=== PATIENT | female | born 1970 | race Caucasian/White ===

== ENCOUNTER → 2017-01-29 | Outpatient (CLI) | payer OTHER ==
--- NOTE | 2017-01-31 07:33 | MM ---
Reason for exam: screening (asymptomatic). Last mammogram was performed 2 years and 9 months ago. History: Family history of breast cancer in mother at age 61. Physical Findings: A clinical breast exam by your physician is recommended on an annual basis and results should be correlated with mammographic findings. MG Screening Mammo w CAD Bilateral CC and MLO view(s) were taken. Prior study comparison: April 21, 2014, bilateral MG screening mammo w CAD. August 24, 2009, bilateral digital screening mammogram. The breast tissue is heterogeneously dense. This may lower the sensitivity of mammography. No significant changes when compared with prior studies. ASSESSMENT: Negative, BI-RAD 1 RECOMMENDATION: Routine screening mammogram of both breasts in 1 year.
== END | disposition home or self-care (01) ==
LOC: RADMAMWWP 14:37
PROVIDERS: ATTEND Family Medicine
DX: Z12.31 Encounter for screening mammogram for malignant neoplasm of breast (principal); Z80.3 Family history of malignant neoplasm of breast

== ENCOUNTER → 2017-03-05 | Outpatient (CLI) | payer OTHER ==
[2017-03-05 13:21] VITALS: BP 155/89; PULSE 92; RESP 16; TEMP 98
--- NOTE | 2017-03-05 20:43 | P.CONS ---
History of Present Illness - Reason for Consult Consult date: 03/05/17 - History of Present Illness This is the initial consultation visit for this years old female , patient started complaining of severe low back pain radiation to the hips bilaterally , she deny any numbness and tingling sensation,, patient denies any fever or night sweats with denies any change in the bowel movement or urination, no fever or night sweats, patient tried physical therapy without any benefit, patient reporte that the pain several years ago without any initiating event, pateints currently on pain medication, Ultram 50 mg every 8 hours , pateints continued to have pain, and patient is here to discuss the option of interventional pain management, she tried physical therapy heat and massage and none of these helped to control her pain Past Medical History Past Medical History: GERD/Reflux, Hypertension Additional Past Medical History / Comment(s): carpal tunnel. Needs left knee replacement. overactive bladder History of Any Multi-Drug Resistant Organisms: None Reported Past Surgical History: Orthopedic Surgery, Tubal Ligation Additional Past Surgical History / Comment(s): Left ACL, medial meniscus repair. Right knee - medial meniscus repair. Right wrist fracture - surgical repair Past Psychological History: Anxiety, Depression, Panic Disorder Smoking Status: Current every day smoker Past Alcohol Use History: Occasional Past Drug Use History: None Reported Medications and Allergies Home Medications Medication Instructions Recorded Confirmed Type ALPRAZolam [Xanax] 0.25 mg PO BID 06/10/14 03/05/17 History Oxybutynin Chloride [Ditropan] 5 mg PO HS 05/27/15 03/05/17 History FLUoxetine HCL [PROzac] 20 mg PO DAILY 02/15/16 03/05/17 History amLODIPine [Norvasc] 5 mg PO DAILY 02/15/16 03/05/17 History Omeprazole 20 mg PO DAILY 03/05/17 03/05/17 History traMADol HCL [Ultram] 50 mg PO TID PRN 03/05/17 03/05/17 History Allergies Allergy/AdvReac Type Severity Reaction Status Date / Time No Known Allergies Allergy Verified 03/05/17 13:01 Physical Exam Vitals: Vital Signs Temp Pulse Resp BP 03/05/17 13:05 98.0 F 92 16 155/89 Intake and Output 08/28/17 08/28/17 08/28/17 06:59 14:59 22:59 Other: Weight 107.501 kg Patient Weight 03/06/17 06:59 Weight 107.501 kg Social history : smoker , socially ETOH , NO Illegal drugs use . Review of Systems : 1- Constitutional : no chills , no fever , no night sweats , 2- Ears : no ear discharge , no change in hearing 3-Nose, Mouth ,Throat ; no bleeding gums, no sore throat , no epistaxis , 4-Cardiovascular : Denies chest pain, , no orthopnea , no palpitation 5-Respiratory : Denies cough , no dyspnea , no hemoptysis 6-Gastrointestinal :, no change in bowel habits , no coffee- ground emesis . 7-Genitourinary : No hematuria , no discharge , no incontinence, 8-Musculoskeletal : No gait dysfunction , report low back pain , 9- Neurological : no ataxia , no tremor , no sezure , 10-Psychatric , no suicidal ideation no hallucination 11- Endocrine : no cold intolerence , no polyuria , no polydypsia , 12-Hematologic : no easy bleeding , no easy brusing , 13-Allergic / immunology : no angioedema , no wheezing ,no allergic rhinitis 14-Integumentary : no brttle nails , no change hair / nails , no foot/leg ulcers . Physical Examinations : 1-Constitutional : Cooperative , not in acute distress . 2-HEENT : nech ; supple , no Lymphadenopathy , no Thyromegaly , :eyes , no icterus, no photophobia . ENT : , normal oropharynx , no Thrush 3- Respiratory : Chest clear to auscultations Bilaterally , no wheezing . 4- Cardiovascular : regular rate and rhythem , S1 , S2 , no S3 , no S4. 5- Gastrointestinal: abdomen soft no tenderness , no organomegally . 6- Genitourinary : Defferred . 7-Integumentary : No cellulitis , no ulcers , normal skin turgor , no cyanotic . 8- neurologic : Cranial nerve II to XII intact , no focal neurological deffecit 9-psychatric : alert , oriented X 3 , appropriate affect , intact judgment and insight . 10-Lymphatic : no Lymphadenopathy. 11- musculoskeltal: normal gait Cervical Spine motor stregnth in the deltoid and biceps, normal right side , normal Left side Lumber spine moter stegnth lower extremities ,thigh and legs 5/5 Right side , 5/5 Left side deep tendon reflexes : normal Knee Jerk , normal ankle Jerk negative lumber facet Loading Test Range of motion of the lumbar spine Flexion 60 degrees, extension 30 degrees strait leg raising test negative Fabere test negative Sever tenderness over the Sacroiliac joint on the R and L sides Results Comments: MRI of the lumbar spine= mild degenerative disc disease at L4-L5 and L5-S1 and left paracentral disc protrusion at L4-L5 Assessment and Plan Plan: Assessment and plan= lumbar degenerative disc disease , and lumbar disc protrusions. Bilateral sacroiliitis. The clinical examination support that most of the pain is coming from the sacroiliac joint etiology, for this reason patient could benefit from bilateral sacroiliac joint steroid injections, procedure risks and benefits and alternatives discussed with the patient and she agreed with the preceding, patient should continue using her pain medication Ultram 50 mg every 8 hours, for breakthrough pain Time with Patient: Greater than 30
== END | disposition home or self-care (01) ==
LOC: PNWHC3 12:39
PROVIDERS: ATTEND Specialist
DX: M51.26 Other intervertebral disc displacement, lumbar region (principal); M51.36 Other intervertebral disc degeneration, lumbar region; M46.1 Sacroiliitis, not elsewhere classified; K21.9 Gastro-esophageal reflux disease without esophagitis; F41.9 Anxiety disorder, unspecified; F32.9 Major depressive disorder, single episode, unspecified; F17.200 Nicotine dependence, unspecified, uncomplicated
CPT/HCPCS: 99211

== ENCOUNTER 2017-03-19 09:12 | Day surgery (SDC) | payer OTHER ==
[2017-03-09 16:07] VITALS: BMI 42.0
[2017-03-19] MEDS ORDERED: LACTATED RINGERS 1,000 ML IV SCH (09:47)
[2017-03-19 09:50] VITALS: TEMP 98.4
[2017-03-19] MEDS ORDERED: LIDOCAINE 1% 20 ML VIAL (10MG/ML) FOR IV START INTRADERMA ONE (09:57)
--- NOTE | 2017-03-19 10:25 | P.PCN ---
Date of Procedure: 03/19/17 Preoperative Diagnosis: Postoperative Diagnosis: Procedure(s) Performed: Implants: Surgeon: Piero Sung Pathology: none sent Condition: stable Disposition: PACU Indications for Procedure: Operative Findings: Description of Procedure: PREOPERATIVE DIAGNOSIS: 1-Bilateral sacroiliitis. 2 Lumbar DDD POSTOPERATIVE DIAGNOSIS:. 1-Bilateral sacroiliitis. 2 Lumbar DDD PROCEDURES: Bilateral Sacroiliac joint steroid injection with fluoroscopic guidance ANESTHESIA: Local with 1% lidocaine; conscious sedation EBL: Minimal. PROCEDURE INDICATIONS: This patient with a history of low back pain secondary to sacroiliitis and lumbar DDD unresponsive to conservative management. No use of blood thinners. SIJ injection #1 today. PROCEDURE DESCRIPTION: The patient was seen and identified in the preoperative area. Risks, benefits, complications, and alternatives were discussed with the patient (including but not limited to incomplete pain relief, bleeding, infection, nerve damage, and allergies to medications), the patient agreed to proceed with the procedure and signed the consent after all questions were answered. Patient was taken to the OR and time out was completed to verify proper patient , position, laterality of pain, and allergies. Pt was placed in the prone position and a pillow was placed under the abdomen to reduce lumbar lordosis. The lumbosacral area was prepped and draped in the usual sterile fashion. Critical pause was taken. Vital signs were closely monitored during the procedure. The fluoroscopic camera was placed in contralateral oblique view and right sacroiliiac joint lower pole was identified. After local infiltration with 1% lidocaine 2 ml, Subsequently, a 22-gauge 3.5 inch spinal needle was introduced into the posteroinferior aspect of the right sacroiliac joint under direct fluoroscopic visualization. Subsequently, 3 ml of a solution of a total of 6 ml solution containing total 5 mL of 0.5% preservative-free bupivacaine mixed with 40 mg of Kenalog was injected after negative aspiration for CSF, blood, and air and negative for paresthesia. The entire procedure was repeated on the left side as above. Needle was withdrawn intact. Skin was cleansed, and bandages were applied. COMPLICATIONS: None. COMMENTS: DISPOSITION / PLANS: The patient was placed in a supine position and transferred to the recovery area in a stable condition for observation and was discharged from the recovery room after meeting discharge criteria. Home discharge instructions given to the patient by the staff. The patient was reexamined prior to discharge. The patient will schedule a repeat procedure in 2 -4 weeks.
[2017-03-19] MEDS ORDERED: IV FLUID CONTINUATION 1,000 ML IV ONE (10:31)
[2017-03-19 10:34] VITALS: RESP 18
--- NOTE | 2017-03-19 10:39 | FL ---
EXAMINATION TYPE: FL guided pain mgmt statistic DATE OF EXAM: 03/19/2017 COMPARISON: NONE HISTORY: Sacroiliac joint pain TECHNIQUE: Fluoroscopy. FINDINGS/IMPRESSION: Fluoroscopic guidance was provided during procedure performed by Dr. Pineda velarde l of 5 seconds of fluoroscopic time was utilized during the procedure and 4 spot images was acquired.
[2017-03-19 10:49] VITALS: BP 145/78; PULSE 98
== END 2017-03-19 11:06 | disposition home or self-care (01) ==
LOC: ORPAIN 09:12
PROVIDERS: ATTEND Anesthesiology
DX: M46.1 Sacroiliitis, not elsewhere classified (principal); M51.36 Other intervertebral disc degeneration, lumbar region; K21.9 Gastro-esophageal reflux disease without esophagitis; I10 Essential (primary) hypertension; F32.9 Major depressive disorder, single episode, unspecified; F41.9 Anxiety disorder, unspecified; F17.200 Nicotine dependence, unspecified, uncomplicated; Z79.899 Other long term (current) drug therapy; M51.26 Other intervertebral disc displacement, lumbar region
CPT/HCPCS: 81025; J2250; J3301; Q9965; J3010; G0260; 99152

== ENCOUNTER → 2017-05-28 | Day surgery (SDC) | payer OTHER ==
[2017-05-25 08:21] VITALS: BMI 43.4
[~2017-05-28] MED LIST: IV FLUID CONTINUATION 1,000 ML IV ONE; LACTATED RINGERS 1,000 ML IV ONE; LIDOCAINE 1% 20 ML VIAL (10MG/ML) FOR IV START INTRADERMA ONE
[2017-05-28 08:24] VITALS: RESP 16; TEMP 97.6
--- NOTE | 2017-05-28 08:44 | P.PCN ---
Date of Procedure: 05/28/17 Preoperative Diagnosis: Bilateral sacroiliitis Postoperative Diagnosis: Same as above Procedure(s) Performed: Bilateral sacroiliac joint steroid injection under fluoroscopic guidance Anesthesia: MAC (IV conscious sedation with fentanyl 1%) Surgeon: Lou Live Pathology: none sent Condition: stable Disposition: PACU Description of Procedure: the patient was seen and identified in the preoperative holding area, risks and benefits and alternative of the procedure and possible complications discussed with the patient, patient signed the consent. an IV was started, and vital signs were monitored and were stable throughout the procedure, patient was placed in the prone position or table and the lumbosacral area was prepped and draped with a sterile fashion, vital signs were closely monitored during the procedure.The right sacroiliac joint was identified on the AP view of fluoroscopy then the C-arm was tilted to the left oblique position to superimpose the anterior and posterior joint lines on each other and to have a unified joint line with the target point at the inferior one third of this line. I used 22-gauge 3-1/2 inch Quincke spinal needle for this procedure and after getting into the sacroiliac joint I injected 20 mg of Kenalog +2.5 MLS of Marcaine 0.5%. The same procedure was repeated on the left side by tilting the C-arm to the right oblique position this time. At the target point was also at the inferior one third of this unified joint line. Using a 22-gauge 3-1/2 inch Quincke spinal needle I injected 20 mg of Kenalog plus 2.5 MLS of Marcaine 0.5% . Patient tolerated the procedure well without any complication, The patient returned to supine position after the back was cleaned and a Band- Aid applied, the patient transported to recovery room in stable condition and he was monitored for 30 minutes before he was discharged home and then patient was reexamined before going home and patient was discharged in stable condition and patient will follow up with the pain clinic in a few weeks
[2017-05-28 09:24] VITALS: BP 105/60; PULSE 104
--- NOTE | 2017-05-28 15:17 | FL ---
Fluoroscopy HISTORY: Pain 28 seconds fluoroscopy time supplied to the referring clinician. 0 intraoperative C-arm images docum ent the procedure. See dictated report from anesthesia.
== END | disposition home or self-care (01) ==
LOC: ORPAIN 07:56
PROVIDERS: ATTEND Anesthesiology
DX: M46.1 Sacroiliitis, not elsewhere classified (principal); I10 Essential (primary) hypertension; J44.9 Chronic obstructive pulmonary disease, unspecified; E66.01 Morbid (severe) obesity due to excess calories
CPT/HCPCS: 81025; J2250; J3301; J3010; G0260

== ENCOUNTER 2017-07-30 08:31 | Day surgery (SDC) | payer OTHER ==
[2017-07-26 14:24] VITALS: BMI 43.2
[~2017-07-30 08:31] MED LIST changes: -IV FLUID CONTINUATION 1,000 ML IV ONE; -LIDOCAINE 1% 20 ML VIAL (10MG/ML) FOR IV START INTRADERMA ONE
[2017-07-30] MEDS ORDERED: LACTATED RINGERS 1,000 ML IV ONE (08:58)
[2017-07-30 09:06] VITALS: RESP 18; TEMP 98
[2017-07-30] MEDS ORDERED: LIDOCAINE 1% 20 ML VIAL (10MG/ML) FOR IV START INTRADERMA ONE (09:14)
--- NOTE | 2017-07-30 11:24 | P.PCN ---
Date of Procedure: 07/30/17 Procedure(s) Performed: PREOPERATIVE DIAGNOSIS: 1-Lumbosacral DDD. 2- sacroiliit. post operative Diagnosis: .Same As Pre Op PROCEDURES: 1- Left radiofrequency thermocoagulation/ablation of the L5 dorsal ramus. 2- Left multi-site radiofrequency thermocoagulation/ablation of the S1, S2, lateral branchs. The procedure was performed using fluoroscopic guidance during needle placement to assure proper position and maximize safety . ANESTHESIA: LOCAL ANESTHESIA = moderate sedation with intravenous versed 2 mg and Fentanyle 100 mcg EBL: NONE INDICATION/MEDICAL NECESSITY: History of low back pain secondary to bilateral sacroiliitis, unresponsive to more conservative treatments. The patient reported more than 50% relief of pain symptoms following 2 previous diagnostic blocks with Bupivacaine. PROCEDURE DESCRIPTION: The patient was seen and identified in the preoperative area. Risks, benefits, complications, and alternatives were discussed with the patient. The patient agreed to proceed with the procedure and signed the consent. Vital signs were checked before and after the procedure and they remained stable. Patient ambulated to the procedure room and time out was completed. The patient was placed in the prone position on the procedure table and a pillow was placed under the abdomen to reduce lumbar lordosis. The lumbosacral area was prepped and draped in the usual sterile fashion. Critical pause was taken. L5 Dorsal Ramus RF: Using left oblique fluoroscopy, the junction of the transverse process and the superior articular process of the left S1 vertebra, which correspond to the fluoroscopic image of the "eye of the Enrike dog" was identified. Subsequently, a 10-cm 20 -gauge radiofrequency cannula with a 10-mm active tip was advanced under fluoroscopic guidance until contact was made with periosteum. At this level, the Sensory testing of the L5 dorsal ramus was performed at 50 Hz and 0 to 1 volt with production of concordant pain starting at 0.5 volt. Motor stimulation was done at 2.5 Hz with stimulation of mulitifidus muscle contration . No radicular symptoms or paresthesias were produced during the testing. Subsequently, the L5 dorsal ramus was subjected to a radiofrequency ablation at 80 degree celsius for 90 seconds . after 0.5% Bupivacaine 1 ml injected at each level after negative aspirations . . S1, S2 Lateral Branch RF: The lateral margins of the left S1, S2, foramina were identified using AP fluoroscopy. Under fluoroscopic guidance, three 10-cm 20 -gauge radiofrequency cannula with a 10-mm active tip were inserted at 8-10 mm peripheral to the posterior S1 foramen, at various locations using clock-face coordinates. The center of the clock was registered at the lateral margin of the foramen. The 9: 30, 8:00, and 6:30 oclock positions were used. At this level, the sensory testing of the S1 lateral branch was performed at 50 Hz and 0 to 1 volt at the three levels with production of concordant pain starting at 0.5 volt. Motor stimulation was done at 2.5 Hz. No radicular symptoms or paresthesias were produced during the testing. Subsequently, the S1 lateral branch was subjected to a radiofrequency ablation at a mode of 90 seconds at 80 degrees Celsius at the 3 levels after negative motor and sensory testing and after injecting 0.5 ml of preservative free Bupivacaine 0.5 %. The same procedure was performed at the level of the S2 foramen. The needle was withdrawn intact after each injection. The Plan was to Do The RFA for S3 also ,But I was not able to visualize the S3 foramina , For this reason ,I did not do the lateral branches for S3. COMPLICATIONS: The patient tolerated the procedure well without any acute complications. DISPOSTION/PLAN: The patient ambulated to the recovery area after the procedure in a stable condition for observation. Patient was reexamined prior to discharge. Patient was observed for 30 minutes in the recovery area and was discharged home, accompanied by an adult, after meeting discharged criteria. Discharge instructions were give to the patient by the staff. Patient was specifically instructed not to drive today and to rest for the rest of the day. The patient will schedule a follow up visit in the clinic in weeks or earlier if needed.
[2017-07-30] MEDS ORDERED: IV FLUID CONTINUATION 1,000 ML IV ONE (11:25)
[2017-07-30 11:59] VITALS: BP 130/82; PULSE 92
--- NOTE | 2017-07-30 12:01 | FL ---
Fluoroscopy HISTORY: Pain 23 seconds fluoroscopy time supplied to the referring clinician. 6 intraoperative C-arm images docum ent the procedure. See dictated report from anesthesia.
== END 2017-07-30 12:10 | disposition home or self-care (01) ==
LOC: ORPAIN 08:31
PROVIDERS: ATTEND Specialist
DX: M51.37 Other intervertebral disc degeneration, lumbosacral region (principal); M46.1 Sacroiliitis, not elsewhere classified; I10 Essential (primary) hypertension; J44.9 Chronic obstructive pulmonary disease, unspecified; G47.33 Obstructive sleep apnea (adult) (pediatric); K21.9 Gastro-esophageal reflux disease without esophagitis
CPT/HCPCS: 81025; 64640; 64635; J2250; J3301; J3010; 99152; 99153

== ENCOUNTER 2017-08-29 08:24 | Day surgery (SDC) | payer OTHER ==
[2017-08-28 09:08] VITALS: BMI 43.9
[2017-08-29] MEDS ORDERED: LACTATED RINGERS 1,000 ML IV SCH (08:45)
[2017-08-29 09:27] VITALS: RESP 18; TEMP 98.3
[2017-08-29] MEDS ORDERED: LIDOCAINE 1% 20 ML VIAL (10MG/ML) FOR IV START INTRADERMA ONE (09:35)
--- NOTE | 2017-08-29 10:03 | P.PCN ---
Date of Procedure: 08/29/17 Surgeon: Piero Sung Pathology: none sent Condition: stable Disposition: PACU Description of Procedure: PREOPERATIVE DIAGNOSIS: Sacroiliitis; lumbar spondylosis without myelopathy POSTOPERATIVE DIAGNOSIS: Sacroiliitis; lumbar spondylosis without myelopathy PROCEDURE: Radiofrequency thermocoagulation/ablation of the Medial branch of L5 and S1, S2, S3 lateral branch levels under fluoroscopic guidance, right ANESTHESIA: Local with 1% lidocaine; IV sedation with Versed/fentanyl EBL: Minimal PROCEDURE INDICATION: The patient with low back pain secondary to sacroilitis with marked decrease in pain with prior sacroiliac joint injections. No use of blood thinners. PROCEDURE DESCRIPTION: The patient was seen and identified in the preoperative area. Risks, benefits, complications, and alternatives were discussed with the patient, with risks including but not limited to bleeding, infection, nerve damage, incomplete pain relief, and allergic reactions to medications. The patient agreed to proceed with the procedure and signed the informed consent after all questions were answered. IV was started. Vital signs were stable throughout the procedure. Patient was taken to the OR and time out was completed.The patient was placed in the prone position on procedure table and a pillow was placed under the abdomen to reduce lumbar lordosis. The lumbosacral area was prepped and draped in the usual sterile fashion. Critical pause was taken. Vital signs were closely monitored during the procedure. L5 Medial Branch: Using right oblique fluoroscopy, the junction of the transverse process and the superior articular process of the top of the sacrum on the right side, which correspond to the fluoroscopic image of the "eye of the Enrike dog" was identified. Skin and deeper tissues were localized with 1% lidocaine at the identified level. Then using fluoroscopy, a 10-cm 20-gauge radiofrequency cannula with a 10-mm active tip was was advanced under fluoroscopic guidance until contact was made with periosteum. At this level, the Sensory testing of L5 Medial branch was performed at 50 Hz and 0 to 1 volt with production of concordant pain. Motor stimulation was done at 2 Hz with stimulation of multifidus muscle contraction at (0.1-2.5) volts. No radicular symptoms or paresthesias were produced during the testing. Subsequently, the L5 medial branch was subjected to a radiofrequency ablation at a mode of 90 seconds at 80 degrees Celsius after negative motor and sensory testing as indicated and after injecting 0.5 ml of preservative free Lidocaine 1%. Then after the radiofrequency procedure was done, 1 mL of a solution containing 4 mL of 0.5% preservative-free lidocaine mixed with 40 mg of Kenalog. S1, S2, and S3 Medial branches: Using the oblique position, the right sacroiliac joint was identified. Skin and deeper tissues corresponding to the site were anesthetized with 1% lidocaine. Under fluoroscopic guidance, a total of three 10-cm 18-gauge radiofrequency cannula with 10-mm active tips were advanced to the lateral aspects of the S1, S2, and S3 vertebral foramina. Subsequently, sensory and motor testings were performed at a total of 3 segments at 50 Hz and 2 Hz respectively which produced concordant pain without radiculopathy or paresthesia. Then each segment was subjected to radiofrequency ablation at a mode of 90 seconds at 80 degrees Celsius for a total of 3 lesions with the bipolar technique. Then after the radiofrequency procedure was done, each site was injected with 1 mL of the aforementioned solution containing 4 mL of 1% preservative-free lidocaine mixed with 40 mg of Kenalog. The needles were withdrawn. Area was cleaned. Band-Aid was applied. COMPLICATIONS: None. COMMENTS: DISPOSITION / PLANS: The patient was placed in a supine position and transferred to the recovery area in a stable condition for observation and was discharged from the recovery room after meeting discharge criteria. Home discharge instructions given to the patient by the staff. The patient was reexamined prior to discharge. The patient will schedule a follow up in clinic in 4-6 weeks to discuss efficacy.
[2017-08-29] MEDS ORDERED: IV FLUID CONTINUATION 650 ML IV ONE (10:07)
[2017-08-29 10:25] VITALS: BP 143/91; PULSE 104
--- NOTE | 2017-08-29 10:48 | FL ---
Fluoroscopy HISTORY: Pain 7 seconds fluoroscopy time supplied to the referring clinician. 2 intraoperative C-arm images docume nt the procedure. See dictated report from anesthesia.
== END 2017-08-29 10:50 | disposition home or self-care (01) ==
LOC: ORPAIN 08:24
PROVIDERS: ATTEND Anesthesiology
DX: M46.1 Sacroiliitis, not elsewhere classified (principal); M47.816 Spondylosis without myelopathy or radiculopathy, lumbar region
CPT/HCPCS: 81025; 64640 ×2; 64635; J2250; J3301; J3010; 99152

== ENCOUNTER → 2017-09-27 | Outpatient (CLI) | payer OTHER ==
[2017-09-27 13:52] VITALS: BP 110/73; PULSE 107; RESP 16
--- NOTE | 2017-09-27 14:39 | P.PN ---
Subjective Progress Note Date: 09/27/17 This is 47 years old female with a chronic history of severe low back pain, patient diagnosed with sacroiliitis and lumbar degenerative disc disease, with done radiofrequency ablation of the sacroiliac joints bilaterally, and she reported that she gets more than 50% improvement of her buttock pain, and she is currently able to do more activity of daily livings, but she hurt herself recently and she fell on her knee and she is having difficulty ambulating because of the knee pain, she was evaluated by orthopedic surgeon Dr. Galvan, and currently she is complaining of numbness and tingling sensation radiated to the left lower extremity and left lower buttock area , she is currently on Ultram 50 mg 3 times a day and naproxen 500 mg twice a day, she denies any side effect of the medication she denies any excessive drowsiness or sleepiness and she reported the current medication and getting comfortable toward her pain, she denies any fever or night sweats she denies any change in the bowel movements or urination Objective - Vital Signs Vital signs: Vital Signs Temp Pulse 107 H 09/27/17 13:41 Resp 16 09/27/17 13:41 BP 110/73 09/27/17 13:41 Pulse Ox 97 09/27/17 13:41 Intake & Output 09/26/17 09/27/17 09/27/17 18:59 06:59 18:59 Weight 109.316 kg - Exam Physical Examinations : 1-Constitutiona : Cooperative , not in acute distress . 2-HEENT : nech ; supple , no Lymphadenopathy , normal thyroid size . eyes : no ptosis , no icterus, no photophobia . ENT : normal of hearing , normal oropharynx , no Thrush . 3- Respiratory : Chest clear to auscultations Bilaterally , no wheezing , no Rhonchi . 4- Cardiovascular : regular rate and rhythem , S1 , S2 , no S3 , no S4. 5- Gastrointestinal : abdomen soft no tenderness , bowel sounds positive all four quadrents , no organomegally . 6- Genitourinary : Defferred . 7- neurologic : Cranial nerve II to XII intact , no focal neurological deffecit . 8-psychatric : alert , oriented X 3 , appropriate affect , intact judgment and insight . 9-Lymphatic : no Lymphadenopathy . 10- musculoskeltal : , Lumber spine = normal moter stegnth lower extremities ,thigh and legs .5/5 deep tendon reflexes : normal Knee Jerk , normal ankle Jerk . lumber facet Loading Test positive strait leg raising test negative on Right , positve at 30 degree Left Fabere test negative on the right and positive Left tenderness over the Sacroiliac joint on the Right , and Left side Assessment and Plan Plan: Assessment and plan= 1-sacroiliitis status post radiofrequency ablation of the sacroiliac joint. 2-lumbar degenerative disc disease, lumbar radiculopathy. Patient could benefit from lumbar epidural steroid injections under fluoroscopy guidance, procedure risk and benefits and alternatives discussed with the patient and she agreed with proceeding, patient should continue to take her pain medication Ultram 50 mg 3 times a day from her primary care and naproxen 500 mg twice a day Time with Patient: Less than 30
== END | disposition home or self-care (01) ==
LOC: PNWHC3 13:27
PROVIDERS: ATTEND Specialist
DX: M46.1 Sacroiliitis, not elsewhere classified (principal); M51.16 Intervertebral disc disorders with radiculopathy, lumbar region; Z79.899 Other long term (current) drug therapy; Z79.891 Long term (current) use of opiate analgesic; Z79.1 Long term (current) use of non-steroidal anti-inflammatories (NSAID); Z98.890 Other specified postprocedural states
CPT/HCPCS: 99211

== ENCOUNTER → 2017-10-03 | Outpatient (CLI) | payer OTHER ==
--- NOTE | 2017-10-03 14:12 | XR ---
Left ankle and left foot HISTORY: Trauma and pain 3 views of the left ankle and 3 views of the left lung submitted. No comparisons There is spurring at the tibiotalar joint. Calcaneal spur is present. Alignment, bone mineralization are maintained. Joint space loss suspected at the tibiotalar joint. There is soft tissue swelling present. Soft tissue calcifications present in the distal leg. IMPRESSION: No acute fracture or location of the left ankle or foot. Follow-up as indicated. Osteoart hritic change. Plantar calcaneal spur.
== END | disposition home or self-care (01) ==
LOC: RADXRMAIN 11:04
PROVIDERS: ATTEND Family Medicine
DX: M77.32 Calcaneal spur, left foot (principal); M19.072 Primary osteoarthritis, left ankle and foot

== ENCOUNTER 2017-10-10 10:13 | Emergency (ER) | payer OTHER ==
[2017-10-10 10:24] VITALS: BP 159/87; PULSE 100; RESP 18; TEMP 97.7
[2017-10-10] MEDS ORDERED: KETOROLAC 60 MG/2 ML VIAL IM STA (10:30)
[2017-10-10] MEDS ORDERED: ORPHENADRINE 30 MG/ML 2 ML VIAL IM STA (10:30)
--- NOTE | 2017-10-10 10:32 | ED ---
Neck Injury/Pain HPI - General Chief Complaint: Neck Pain/Injury Stated Complaint: Neck pain Time Seen by Provider: 10/10/17 10:25 Source: patient, RN notes reviewed Mode of arrival: ambulatory Limitations: no limitations - History of Present Illness Initial Comments: This a 47-year-old female presents emergency Department chief complaint of right -sided neck pain. Patient states started on Sunday after she woke up from a nap. She states her pain that radiates down her right arm to her right bicep region. Denies any associated weakness is pain with range of motion. Patient denies any paresthesias. Denies any trauma. Patient has no current headache no dizziness no chest pain or shortness of breath. Patient states that she try taken naproxen, tramadol no relief. She did try some warm compresses. Patient had no prior neck issues. She does have history of back problems. - Related Data Home Medications Medication Instructions Recorded Confirmed Oxybutynin Chloride [Ditropan] 5 mg PO HS 05/27/15 10/10/17 FLUoxetine HCL [PROzac] 20 mg PO DAILY 02/15/16 10/10/17 Omeprazole 20 mg PO DAILY 03/05/17 10/10/17 Lisinopril-Hctz 20-25 mg 1 tab PO DAILY 09/27/17 10/10/17 [Zestoretic 20-25] Naproxen 500 mg PO BID 09/27/17 10/10/17 ALPRAZolam [Xanax] 0.5 mg PO BID 10/10/17 10/10/17 Albuterol Inhaler [Ventolin Hfa 1 - 2 puff INHALATION RT-Q6H PRN 10/10/17 Inhaler] Previous Rx's Medication Instructions Recorded Acetaminophen-Codeine 300-30mg 1 tab PO Q4H PRN #20 tablet 10/10/17 [Tylenol #3] Cyclobenzaprine [Flexeril] 10 mg PO TID PRN #15 tab 10/10/17 predniSONE 50 mg PO DAILY #5 tab 10/10/17 Allergies Allergy/AdvReac Type Severity Reaction Status Date / Time No Known Allergies Allergy Verified 10/10/17 10:51 Review of Systems ROS Statement: Those systems with pertinent positive or pertinent negative responses have been documented in the HPI. ROS Other: All systems not noted in ROS Statement are negative. Past Medical History Past Medical History: COPD, GERD/Reflux, Hypertension, Sleep Apnea/CPAP/BIPAP Additional Past Medical History / Comment(s): overactive bladder. Fell on and re-injured left knee; presently on crutches; saw Dr. Galvan History of Any Multi-Drug Resistant Organisms: None Reported Past Surgical History: Orthopedic Surgery, Tubal Ligation Additional Past Surgical History / Comment(s): Left ACL, medial meniscus repair. Right knee - medial meniscus repair. Right wrist fracture - surgical repair.RIGHT RING FINGER. PAIN CLINIC PROCEDURES Past Anesthesia/Blood Transfusion Reactions: No Reported Reaction Past Psychological History: Anxiety, Depression, Panic Disorder Smoking Status: Current every day smoker Past Alcohol Use History: Occasional Past Drug Use History: None Reported - Past Family History Mother Family Medical History: Cancer Additional Family Medical History / Comment(s): UTERINE AND BREAST CANCER, General Exam Limitations: no limitations General appearance: alert, in no apparent distress Head exam: Present: atraumatic, normocephalic, normal inspection ENT exam: Present: normal exam, normal oropharynx, mucous membranes moist Neck exam: Present: normal inspection, tenderness (Tenderness the right paraspinal or trapezius region), full ROM (Patient does have full range of motion mild pain with range of motion). Absent: meningismus, lymphadenopathy Respiratory exam: Present: normal lung sounds bilaterally. Absent: respiratory distress, wheezes, rales, rhonchi, stridor Cardiovascular Exam: Present: regular rate, normal rhythm, normal heart sounds. Absent: systolic murmur, diastolic murmur, rubs, gallop, clicks Extremities exam: Present: other (Upper extremity strength equal bilaterally, neurovascular intact) Neurological exam: Present: alert, oriented X3, CN II-XII intact, reflexes normal. Absent: motor sensory deficit Skin exam: Present: warm, dry, intact, normal color. Absent: rash Course Vital Signs 10/10/17 10:20 Temperature 97.7 F Pulse Rate 100 Respiratory 18 Rate Blood Pressure 159/87 O2 Sat by Pulse 99 Oximetry Medical Decision Making - Medical Decision Making 47-year-old female presented emergency department for right-sided neck pain. Patient has cervical radiculopathy. Patient does have normal muscle spasms the right side of the neck. Patient given steroids, muscle relaxer and she'll continue her pain medication. Return parameters were discussed. Patient has no focal weakness. Disposition Clinical Impression: Cervical radiculopathy, Trapezius muscle spasm Disposition: HOME SELF-CARE Condition: Stable Instructions: Cervical Radiculopathy (ED) Additional Instructions: Please return to the Emergency Department if symptoms worsen or any other concerns. Prescriptions: Acetaminophen-Codeine 300-30mg [Tylenol #3] 1 tab PO Q4H PRN #20 tablet PRN Reason: pain Cyclobenzaprine [Flexeril] 10 mg PO TID PRN #15 tab PRN Reason: Muscle Spasm predniSONE 50 mg PO DAILY #5 tab Referrals: Sundeep Sinclair MD [Primary Care Provider] - 1-2 days Time of Disposition: 11:01
--- NOTE | 2017-10-10 10:48 | XR ---
EXAMINATION TYPE: XR cervical spine comp DATE OF EXAM: 10/10/2017 COMPARISON: NONE HISTORY: Pain TECHNIQUE: 5 view cervical spine FINDINGS: There is a cervical kyphosis greatest at approximately C3 5. Prevertebral space is normal. C7-T1 interspace is poorly visualized in lateral projection, exam is supplemented with a transthoraci c swimmer's view. Posterior spinal lamellar line appears intact. Foramen are patent. Odontoid is limi tation with overlying maxilla. Transthoracic swimmer's view was obtained appears normal. IMPRESSION: 1. Cervical kyphosis
== END 2017-10-10 11:11 | disposition home or self-care (01) ==
LOC: EC 10:13
DX: M54.12 Radiculopathy, cervical region (principal); M62.838 Other muscle spasm; K21.9 Gastro-esophageal reflux disease without esophagitis; I10 Essential (primary) hypertension; G47.30 Sleep apnea, unspecified; Z99.89 Dependence on other enabling machines and devices; F32.9 Major depressive disorder, single episode, unspecified; F41.0 Panic disorder [episodic paroxysmal anxiety]; F17.200 Nicotine dependence, unspecified, uncomplicated; Z79.1 Long term (current) use of non-steroidal anti-inflammatories (NSAID); Z79.899 Other long term (current) drug therapy
CPT/HCPCS: 72050; 99283; 96372 ×2; J2360; J1885

== ENCOUNTER 2017-10-31 06:49 | Day surgery (SDC) | payer OTHER ==
[2017-10-26 12:21] VITALS: BMI 44.1
[2017-10-31] MEDS ORDERED: LACTATED RINGERS 1,000 ML IV SCH (07:00)
[2017-10-31 07:35] VITALS: RESP 16; TEMP 98
[2017-10-31] MEDS ORDERED: LIDOCAINE 1% 20 ML VIAL (10MG/ML) FOR IV START INTRADERMA ONE (07:35)
--- NOTE | 2017-10-31 08:10 | P.PCN ---
Date of Procedure: 10/31/17 Surgeon: Piero Sung Pathology: none sent Condition: stable Disposition: PACU Description of Procedure: PREOPERATIVE DIAGNOSIS: 1-Lumbar radiculitis. POSTOPERATIVE DIAGNOSIS: 1-Lumbar radiculitis. PROCEDURE 1. Lumbar epidural steroid injection under fluoroscopic guidance at the L4-L5 level. 2. Lumbar epidurogram. ANESTHESIA: Local with 1% lidocaine; IV sedation with Versed/fentanyl. EBL: Minimal PROCEDURE INDICATION: The patient with low back pain and radiculitis symptoms unresponsive to conservative treatment, LLE > RLE. No use of blood thinners. Fluoroscopy was used to optimize visualization of the needle placement and to maximize safety. PROCEDURE DESCRIPTION / TECHNIQUE: The patient was seen and identified in the preoperative area. Risks, benefits, complications, and alternatives were discussed with the patient, including but not limited to bleeding, infection, nerve damage, allergic reactions to medications, and incomplete pain relief. The patient agreed to proceed with the procedure and signed the consent after all questions were answered. IV was started, and vital signs were stable. Patient was taken to the OR and time out was completed to confirm patient position, procedure, laterality of pain, and allergies. The patient was placed in the prone position on procedure table and a pillow was placed under the abdomen to reduce lumbar lordosis. The lumbosacral area was prepped and draped in the usual sterile fashion. Critical pause was taken. Vital signs were closely monitored during the procedure. Conscious sedation was used during the procedure to decrease patients anxiety. Using anterior-posterior fluoroscopy, the L4-L5 interlaminar space was identified and the skin over this site was marked and then infiltrated with 1% lidocaine subcutaneously. Subsequently, a 20-gauge 3.5-inch Tuohy epidural needle was inserted and advanced toward the epidural space using the Loss of resistance technique and guided by AP and lateral fluoroscopy. The correct needle position in the epidural space was verified with the injection of 2 mL of the water soluble contrast dye Isovue 200 contrast and observing an excellent epidurogram with the epidural spread of the dye, after negative aspiration for blood and CSF and in the absence of paresthesias. Again after negative aspiration, a 6 ml mixture containing 40 mg of PF Decadron and 3 ml of preservative free Normal Saline, and 2 ml of preservative free lidocaine 1% solution was injected and a washout of epidurogram was seen. Needle was withdrawn intact, skin was cleansed, and bandages were applied. COMPLICATIONS: None COMMENTS: DISPOSITION / PLANS: The patient was placed in a supine position and transferred to the recovery area in a stable condition for observation. There was no evidence of lower extremity motor or sensory deficit after the procedure. Patient was discharged from the recovery room after meeting discharge criteria. Home discharge instructions were given to the patient by the staff. The patient was reexamined prior to discharge and there were no issues. The patient will schedule a repeat procedure in 2-4 weeks. Recommend using longer Tuohy needle for next procedure,.
[2017-10-31 08:14] VITALS: BP 143/89; PULSE 100
[2017-10-31] MEDS ORDERED: IV FLUID CONTINUATION 1,000 ML IV ONE (08:17)
--- NOTE | 2017-10-31 08:32 | FL ---
Fluoroscopy HISTORY: Pain 7 seconds fluoroscopy time supplied to the referring clinician. 3 intraoperative C-arm images docume nt the procedure. See dictated report from anesthesia.
== END 2017-10-31 08:21 | disposition home or self-care (01) ==
LOC: ORPAIN 06:49
PROVIDERS: ATTEND Anesthesiology
DX: G89.29 Other chronic pain (principal); M54.16 Radiculopathy, lumbar region; I10 Essential (primary) hypertension; K21.9 Gastro-esophageal reflux disease without esophagitis; Z79.899 Other long term (current) drug therapy
CPT/HCPCS: 62323; J2250; J1030; J3010; Q9966

== ENCOUNTER 2017-11-22 07:05 | Day surgery (SDC) | payer OTHER ==
[2017-11-19 12:51] VITALS: BMI 42.7
[2017-11-22 08:41] VITALS: RESP 18; TEMP 97.2
[2017-11-22] MEDS ORDERED: LACTATED RINGERS 1,000 ML IV ONE (08:55)
[2017-11-22] MEDS ORDERED: LIDOCAINE 1% 20 ML VIAL (10MG/ML) FOR IV START INTRADERMA ONE (08:56)
--- NOTE | 2017-11-22 09:18 | P.PCN ---
Date of Procedure: 11/22/17 Anesthesia: local Surgeon: Jeff Mcgill Description of Procedure: PREOPERATIVE DIAGNOSIS: 1- Lumbar Degenerative Disc Diseases 2-Lumbar spondylosis with Facet arthropathy without myelopathy POSTOPERATIVE DIAGNOSIS: 1-Lumber Degenerative Disc Diseases 2-Lumbar spondylosis with Facet arthropathy without myelopathy PROCEDURE Lumbar epidural steroid injection under fluoroscopic guidance at the L4 5 level. ANESTHESIA: Local with 1% lidocaine 3 ml and IV sedation with Versed 2 mg EBL: Minimal PROCEDURE INDICATION: The patient with low back pain and radiculitis symptoms unresponsive to conservative treatment. Fluoroscopy was used to optimize visualization of the needle placement and to maximize safety. She has a herniated disc at L4-5. She is undergone one previous epidural steroid injection with reduction of her symptoms. PROCEDURE DESCRIPTION / TECHNIQUE: The patient was seen and identified in the preoperative area. Risks, benefits , complications including but not limited to infections ,bleeding ,allergic reaction to the medications ,nerve damage and not complete pain relief , and alternatives were discussed with the patient. The patient agreed to proceed with the procedure and signed the consent. IV was started, and vital signs were stable. Patient was taken to the OR and time out was completed. The patient was placed in the prone position on procedure table and a pillow was placed under the abdomen to reduce lumbar lordosis. The lumbosacral area was prepped and draped in the usual sterile fashion.ere closely monitored during the procedure. Conscious sedation was used during the procedure to decrease patients anxiety. Vital signs was monitered during the entire procedure. Using anterior-posterior fluoroscopy, the L5-S1 interlaminar space was identified and the skin over this site was marked and then infiltrated with 1% lidocaine subcutaneously. Subsequently, a 20-gauge Tuohy epidural needle was inserted and advanced toward the epidural space using the Loss of resistance technique and guided by AP and lateral fluoroscopy. The correct needle position in the epidural space was verified with the injection of contrast and observing an excellent epidurogram with the epidural spread of the dye, after negative aspiration for blood and CSF and in the absence of paresthesias. Again after negative aspiration, a 6 ml mixture containing 20 mg of Dexamethasone was injected and a washout of epidurogram was seen. Needle was withdrawn intact , skin was cleansed, and bandages were applied. COMPLICATIONS: None DISPOSITION / PLANS: The patient was placed in a supine position and transferred to the recovery area in a stable condition for observation. There was no evidence of lower extremity motor or sensory deficit after the procedure. Patient was discharged from the recovery room after meeting discharge criteria. Home discharge instructions were given to the patient by the staff. The patient was reexamined prior to discharge. The patient will schedule a follow up for repeat of lumbar epidural steroid injection in 2-4 weeks.
[2017-11-22] MEDS ORDERED: IV FLUID CONTINUATION 1,000 ML IV ONE (09:24)
--- NOTE | 2017-11-22 09:37 | FL ---
EXAMINATION TYPE: FL guided pain mgmt statistic DATE OF EXAM: 11/22/2017 HISTORY: Flouroscopy time 1 seconds of fluoroscopy provided. IMPRESSION: 1. Fluoroscopy time.
[2017-11-22 09:47] VITALS: BP 126/73; PULSE 92
== END 2017-11-22 10:02 | disposition home or self-care (01) ==
LOC: ORPAIN 07:05
PROVIDERS: ATTEND Anesthesiology
DX: M51.16 Intervertebral disc disorders with radiculopathy, lumbar region (principal); M47.816 Spondylosis without myelopathy or radiculopathy, lumbar region
CPT/HCPCS: 81025; 62323; J2250; J1030; J3010

== ENCOUNTER 2018-01-24 08:01 | Day surgery (SDC) | payer OTHER ==
[2018-01-21 10:25] VITALS: BMI 43.9
[~2018-01-24 08:01] MED LIST changes: -LACTATED RINGERS 1,000 ML IV ONE; +LACTATED RINGERS 1,000 ML IV SCH
[2018-01-24 09:25] VITALS: RESP 16; TEMP 98
[2018-01-24] MEDS ORDERED: LIDOCAINE 1% 20 ML VIAL (10MG/ML) FOR IV START INTRADERMA ONE (09:28)
--- NOTE | 2018-01-24 10:25 | P.PCN ---
Date of Procedure: 01/24/18 Procedure(s) Performed: PREOPERATIVE DIAGNOSIS: 1- Lumbar Degenerative Disc Diseases 2-Lumbar radiculopathy. POSTOPERATIVE DIAGNOSIS: same as preoperative diagnosis PROCEDURE 1. Lumbar epidural steroid injection under fluoroscopic guidance at the L4-5 level. 2. Lumbar epidurogram. ANESTHESIA: Local with 1% lidocaine 3 ml and , moderate sedation with intravenous Versed 2 mg ,and fentanyle 50 Mcg EBL: Minimal PROCEDURE INDICATION: The patient with low back pain and radiculitis symptoms unresponsive to conservative treatment. Fluoroscopy was used to optimize visualization of the needle placement and to maximize safety. PROCEDURE DESCRIPTION / TECHNIQUE: The patient was seen and identified in the preoperative area. Risks, benefits , complications including but not limited to infections ,bleeding ,allergic reaction to the medications ,nerve damage and not complete pain releife , and alternatives were discussed with the patient. The patient agreed to proceed with the procedure and signed the consent. IV was started, and vital signs were stable. Patient was taken to the OR and time out was completed. The patient was placed in the prone position on procedure table and a pillow was placed under the abdomen to reduce lumbar lordosis. The lumbosacral area was prepped and draped in the usual sterile fashion.ere closely monitored during the procedure. Conscious sedation was used during the procedure to decrease patients anxiety. Vital signs was monitered during the entire procedure. Using anterior-posterior fluoroscopy, the L4-5 interlaminar space was identified and the skin over this site was marked and then infiltrated with 1% lidocaine subcutaneously. Subsequently, a 18-gauge 6 inches ,Tuohy epidural needle was inserted and advanced toward the epidural space using the ``Loss of resistance technique and guided by AP and lateral fluoroscopy. The correct needle position in the epidural space was verified with the injection of 2 mL of the water soluble contrast dye Isovue 200 contrast and observing an excellent epidurogram with the epidural spread of the dye, after negative aspiration for blood and CSF and in the absence of paresthesias. Again after negative aspiration, a 6 ml mixture containing 80 mg Depo-Medrol, and 2 ml of preservative free Normal Saline, and 2 ml of preservative free lidocaine 1% solution was injected and a washout of epidurogram was seen. Needle was withdrawn intact, skin was cleansed, and bandages were applied. COMPLICATIONS: None DISPOSITION / PLANS: The patient was placed in a supine position and transferred to the recovery area in a stable condition for observation. There was no evidence of lower extremity motor or sensory deficit after the procedure. Patient was discharged from the recovery room after meeting discharge criteria. Home discharge instructions were given to the patient by the staff. The patient was reexamined prior to discharge. The patient will schedule a follow up in the clinic in 2-4 weeks.
[2018-01-24] MEDS ORDERED: IV FLUID CONTINUATION 1,000 ML IV ONE (10:30)
[2018-01-24 10:46] VITALS: BP 141/88; PULSE 80
--- NOTE | 2018-01-24 12:57 | FL ---
Fluoroscopy HISTORY: Pain 2 seconds fluoroscopy time supplied to the referring clinician. 1 intraoperative C-arm images docume nt the procedure. See dictated report from anesthesia.
== END 2018-01-24 11:06 | disposition home or self-care (01) ==
LOC: ORPAIN 08:01
PROVIDERS: ATTEND Specialist
DX: M51.16 Intervertebral disc disorders with radiculopathy, lumbar region (principal)
CPT/HCPCS: 81025; 62323; J2250; J1030; J3010; Q9966

== ENCOUNTER → 2018-02-05 | Outpatient (CLI) | payer OTHER ==
[2018-02-05 11:18] VITALS: BP 144/74; PULSE 85; TEMP 97.7; BMI 42.7
--- NOTE | 2018-02-05 12:14 | P.HPOB ---
History of Present Illness H&P Date: 02/05/18 Chief Complaint: The patient is here for her routine gynecologic exam and mammogram. This is a 47-year-old with an LMP of 01/21/2018. She is status post tubal ligation. She states she continues to have heavier periods some months. She did use meclofenamate with some improvement but has no longer been using it. She states overall, her periods are better, but she does have some periods that have 2 days of heavier flow that occasionally will soak through her protection. She would like to go back on the meclofenamate sodium. She has a history of a labial cyst which she has had since about 1989. Generally, it is not painful, but recently interfered with sexual intercourse. She would like to have it removed. Review of Systems She is getting about 23 pounds over the last 3 years. She denies respiratory, cardiac, or G.I. problems. Past Medical History Past Medical History: COPD, Diabetes Mellitus (Type II diabetes), GERD/Reflux, Hypertension, Sleep Apnea/CPAP/BIPAP Additional Past Medical History / Comment(s): overactive bladder, chronic back pain and sleep apnea. 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 She has had a left labial cyst since 1989. History of Any Multi-Drug Resistant Organisms: None Reported Past Surgical History: Orthopedic Surgery, Tubal Ligation Additional Past Surgical History / Comment(s): Left ACL, medial meniscus repair. Right knee - medial meniscus repair. Right wrist fracture - surgical repair.RIGHT RING FINGER. PAIN CLINIC PROCEDURES Past Anesthesia/Blood Transfusion Reactions: No Reported Reaction Past Psychological History: Anxiety, Depression, Panic Disorder Smoking Status: Current every day smoker (About one every 1 to 2 days.) Past Alcohol Use History: Occasional (6 per week) Additional Past Alcohol Use History / Comment(s): STARTED SMOKING AT AGE 17 states quit smoking 12/2017 Past Drug Use History: None Reported Additional History: She is . She has been with somebody on and off since November 2017. She does not work outside of the home. - Past Family History Mother Family Medical History: Cancer (Breast and uterine), Diabetes Mellitus Medications and Allergies Home Medications Medication Instructions Recorded Confirmed Type Oxybutynin Chloride [Ditropan] 5 mg PO HS 05/27/15 01/24/18 History FLUoxetine HCL [PROzac] 20 mg PO DAILY 02/15/16 01/24/18 History Omeprazole 20 mg PO DAILY 03/05/17 01/24/18 History Naproxen 500 mg PO BID PRN 09/27/17 01/24/18 History ALPRAZolam [Xanax] 0.5 mg PO BID 10/10/17 01/24/18 History Albuterol Inhaler [Ventolin Hfa 1 - 2 puff INHALATION RT-Q6H PRN 10/10/17 History Inhaler] traMADol HCL [Ultram] 50 mg PO TID 11/22/17 01/24/18 History Hydrochlorothiazide 50 mg PO DAILY 01/21/18 01/24/18 History Qvar 2 puff INHALATION BID 01/21/18 History Allergies Allergy/AdvReac Type Severity Reaction Status Date / Time No Known Allergies Allergy Verified 01/21/18 10:20 Exam Vital Signs Temp Pulse BP 02/05/18 11:13 97.7 F 85 144/74 Intake and Output 02/04/18 02/05/18 02/05/18 22:59 06:59 14:59 Other: Weight 109.316 kg Height 5'3", BMI 42.7. This is a well-developed well-nourished heavyset white female who is alert and oriented times 3 in no acute distress. HEENT: Within normal limits. NECK: Supple without mass or thyromegaly. CHEST AND LUNGS: Clear to auscultation. HEART: Regular rate and rhythm. BREASTS: Are without mass or discharge. AXILLARY EXAM: Negative for adenopathy. BACK: Negative for CVA tenderness. ABDOMEN: Soft, obese, nontender, without palpable masses. PELVIC EXAM: external genitalia reveals a left labia minora cyst at the anterior aspect of the vaginal opening measuring approximately 2.0 x 1.5 cm. The system is soft and slightly fluctuate and is nontender. Cervix and vagina appear normal []. There is no unusual discharge. There is no evidence of prolapse. There is mild suprapubic pelvic tenderness with bimanual examination. The tenderness does not seem to be coming from the vaginal hand . The uterus is midposition, nongravid size.. There are no palpable adnexal masses or tenderness. RECTAL EXAM: rectovaginal exam is negative for mass or tenderness and is negative for occult blood. EXTREMITIES: Nontender. IMPRESSION: 1. 47-year-old female with long-standing left labia minora cyst measuring 2 cm. This is slightly larger from her previous exam and seems to interfere with sexual activity. 2. Mild hypermenorrhea. 3. Mild central pelvic tenderness in the suprapubic region. PLAN: 1. Pap smear was performed. 2. Self breast awareness was discussed. 3. The patient will be referred to Dr. Dickinson for removal of the left labia minora cyst. 4. A prescription for meclofanamate sodium 100 mg TID PRN for heavy menstrual flow up to 6 days per cycle will be sent to [facility] pharmacy on . She will keep menstrual calendar. 5. Pelvic ultrasound will be scheduled. 6. She will return in one year and PRN.
--- NOTE | 2018-02-07 13:22 | MM ---
Reason for exam: screening (asymptomatic). Last mammogram was performed 1 year ago. History: Family history of breast cancer in mother at age 61. Physical Findings: A clinical breast exam by your physician is recommended on an annual basis and results should be correlated with mammographic findings. MG Screening Mammo w CAD Bilateral CC and MLO view(s) were taken. Prior study comparison: January 29, 2017, bilateral MG screening mammo w CAD. April 21, 2014, bilateral MG screening mammo w CAD. The breast tissue is heterogeneously dense. This may lower the sensitivity of mammography. Developing asymmetry middle posterior depth upper outer quadrant on dense tissue. ASSESSMENT: Incomplete: need additional imaging evaluation, BI-RAD 0 RECOMMENDATION: Special view mammogram of the right breast. If lesion persists on supplemental views, image directed ultrasound is recommended. [facility] will attempt to contact patient to return for supplemental views and ultrasound if indicated.
== END | disposition home or self-care (01) ==
LOC: WWCWWP 10:30
PROVIDERS: ATTEND Obstetrics & Gynecology
DX: Z12.31 Encounter for screening mammogram for malignant neoplasm of breast (principal)
CPT/HCPCS: 77067

== ENCOUNTER → 2018-02-20 | Outpatient (CLI) | payer OTHER ==
--- NOTE | 2018-02-20 15:47 | US ---
EXAMINATION TYPE: US pelvis complete transvag DATE OF EXAM: 02/20/2018 COMPARISON: NONE CLINICAL HISTORY: R10.2 PELVIC PAIN. Large body habitus TECHNIQUE: Transvaginal (TV) and Transabdominal (TA) . Transabdominal sonographic images of the pel vis were acquired. Transvaginal sonographic images were medically necessary to better assess the fol lowing anatomy: uterus Date of LMP: 01/21/2018 EXAM MEASUREMENTS: Uterus: 9.3 x 4.6 x 5.2 cm Endometrial Stripe: not seen Right Ovary: not seen Left Ovary: not seen 1. Uterus: nabothian cyst 0.8 cm, fundus appears bulbous possible fibroid ,5.2 x 4.1x 5.0 cm 2. Endometrium: not seen 3. Right Ovary: Obscured by overlying bowel gas 4. Left Ovary: Obscured by overlying bowel gas 5. Bilateral Adnexa: Obscured by overlying bowel gas 6. Posterior cul-de-sac: wnl Small nabothian cyst in cervix is present. Probable fibroid uterine fundus. IMPRESSION: Suboptimal due to marked heterogeneity. Fibroid uterus suspected. Endometrium not well vi sualized.
--- NOTE | 2018-02-21 07:05 | MM ---
Reason for exam: additional evaluation requested from abnormal screening. Last mammogram was performed less than 1 month ago. History: Family history of breast cancer in mother at age 61. Physical Findings: Nurse did not find any significant physical abnormalities on exam. MG Work Up Mamm w CAD RT Spot compression CC and LM view(s) were taken of the right breast. Prior study comparison: February 05, 2018, bilateral MG screening mammo w CAD. January 29, 2017, bilateral MG screening mammo w CAD. April 21, 2014, bilateral MG screening mammo w CAD. No discrete abnormality persists on additional views. These results were verbally communicated with the patient and result sheet given to the patient on 02/20/18. ASSESSMENT: Negative, BI-RAD 1 RECOMMENDATION: Return to routine screening mammogram schedule for both breasts.
== END ==
LOC: RADUSWWP 14:51
PROVIDERS: ATTEND Obstetrics & Gynecology
DX: R92.8 Other abnormal and inconclusive findings on diagnostic imaging of breast (principal); R10.2 Pelvic and perineal pain
CPT/HCPCS: 76830; 76856; 77065

== ENCOUNTER → 2018-02-25 | Outpatient (CLI) | payer OTHER ==
[2018-02-25 12:37] VITALS: BP 163/120; PULSE 94; RESP 18
--- NOTE | 2018-02-25 13:01 | P.PAINPG ---
Subjective Progress Note Date: 02/25/18 This is 47 years old female with a chronic history of severe low back pain, they ) with lumbar degenerative disc disease lumbar spondylosis and sacroiliitis, more than 6 months ago we did radiofrequency ablation of the sacroiliac joint, and it helped her low back pain significantly recently we've done lumbar epidural steroid injection 3, it helped her lower extremity pain, currently she is complaining of severe low low back pain localized mainly on the left buttock area, she describes her pain as aching, continuous pain increased with any movement, he denies any motor or sensory deficit, currently she continue to use naproxen 500 mg twice a day and Ultram 50 mg every 8 hours, he denies any side effects of the medication, she denies any fever or night sweats. No motor or sensory deficits, no change in bowel movement or urination. Objective - Vital Signs Vital signs: Vital Signs Temp Pulse 94 02/25/18 12:31 Resp 18 02/25/18 12:31 BP 163/120 02/25/18 12:31 Pulse Ox 95 02/25/18 12:31 Intake & Output 02/24/18 02/25/18 02/25/18 18:59 06:59 18:59 Weight 111.584 kg - Exam Physical Examinations : 1-Constitutiona : Cooperative , not in acute distress . 2-HEENT : nech ; supple , no Lymphadenopathy , normal thyroid size . eyes : no ptosis , no icterus , no photophobia . ENT : normal of hearing , normal oropharynx , no Thrush . 3- Respiratory : Chest clear to auscultations Bilaterally , no wheezing , no Rhonchi . 4- Cardiovascular : regular rate and rhythem , S1 , S2 , no S3 , no S4. 5- Gastrointestinal : abdomen soft no tenderness , bowel sounds , no organomegally . 6- Genitourinary : Defferred . 7- neurologic : Cranial nerve II to XII intact , no focal neurological deffecit . 8-psychatric : alert , oriented X 3 , appropriate affect , intact judgment and insight . 9-Lymphatic : no Lymphadenopathy . 10- musculoskeltal : Lumber spine moter stegnth lower extremities ,thigh and legs 5/5 Right side , 5/5 Left side deep tendon reflexes : normal Knee Jerk , normal ankle Jerk lumber facet Loading Test negative bilaterally Range of motion of the lumbar spine Flexion 60 degrees, extension 30 degrees strait leg raising test negative bilaterally Fabere test negative bilaterally Sever tenderness over the Sacroiliac joint on the L sides Assessment and Plan Plan: Assessment and plan= chronic severe low back pain secondary to lumbar degenerative disc disease/lumbar spondylosis/sacroiliitis Patient had good results after the epidural steroid injection and radiofrequency ablation of the sacroiliac joint more than 6 months ago Patient is complaining of severe left sacroiliitis, she could benefit from left-sided sacroiliac joint steroid injection under fluoroscopy guidance, in the future we can consider doing repeat radiofrequency of left sacroiliac joint, procedure risk and benefits and alternatives discussed with the patient she agreed with proceeding Time with Patient: Less than 30 PQRS Measure Charge Sheet Measure #130: Documentation of Current Meds in Medical Chart: Patient's medications documented in chart Measure #226: Tobacco Use: Screen & Cessation Intervention: Pt screened for tobacco use AND intervention given Measure #111: Pneumonia Vaccination: Pneumococcal vaccine NOT administered or previously given Measure #47: Advance Care Plan: Advance care planning discussed & documented, pt chose/unable to give Measure #412: Opioid Treatment Agreement: No documentation of signed opioid treatment agreement Measure #408: Opioid Therapy Follow-up Evaluation: Patient had NO f/u eval minimum every 3 months during opioid therapy Measure #317: Preventitive Care & Scrn High Bld Press & F/U: Pre-hypertensive or hypertensive BP documented, pt will f/u with PCP Measure #128: Body Mass Index (BMI) Screening & Follow-up: BMI documented ABOVE normal parameters - f/u documented Measure #131: Pain Assessment & Follow-up: Pain positive & plan documented, Follow-up scheduled Measure #431: Unhealthy Alcohol Use Preventative Care & Scrn: Patient not identified as an unhealthy alcohol user PQRS Narrative: Smoking Status Current some day smoker Do You Want the Pneumonia No Vaccine AT THIS TIME? Blood Pressure 163/120 Pain Intensity [Lower Back] 6 Scale Used Numeric (1 - 10) Hx Alcohol Use (MH) Yes Home Medications: Ambulatory Orders Oxybutynin Chloride [Ditropan] 5 mg PO HS 05/27/15 FLUoxetine HCL [PROzac] 20 mg PO DAILY 02/15/16 Omeprazole 20 mg PO DAILY 03/05/17 Naproxen 500 mg PO BID PRN 09/27/17 ALPRAZolam [Xanax] 0.5 mg PO BID 10/10/17 Albuterol Inhaler [Ventolin Hfa Inhaler] 1 - 2 puff INHALATION RT-Q6H PRN traMADol HCL [Ultram] 50 mg PO TID 11/22/17 Hydrochlorothiazide 50 mg PO DAILY 01/21/18 Qvar 2 puff INHALATION BID 01/21/18 Meclofenamate Sodium 100 mg PO TID PRN #25 capsule 02/05/18 metFORMIN HCL [metFORMIN HCL ER] 1 tab PO DAILY 02/25/18 Controlled Substance Measures - Controlled Substance Measures Is patient prescribed a controlled substance at discharge?: No When asked, does pt state using other controlled substances?: No If prescribed controlled substance>3 days was MAPS reviewed?: No If Rx opioid, was Start Talking consent form obtained?: No If opioid is for acute pain is fill amount 7 days or less?: No Was information provided regarding opioid addiction?: No
== END | disposition home or self-care (01) ==
LOC: PNWHC3 12:15
PROVIDERS: ATTEND Specialist
DX: G89.29 Other chronic pain (principal); M51.36 Other intervertebral disc degeneration, lumbar region; M47.816 Spondylosis without myelopathy or radiculopathy, lumbar region; M46.1 Sacroiliitis, not elsewhere classified; F17.200 Nicotine dependence, unspecified, uncomplicated; Z79.899 Other long term (current) drug therapy; Z79.1 Long term (current) use of non-steroidal anti-inflammatories (NSAID); Z79.891 Long term (current) use of opiate analgesic; Z79.84 Long term (current) use of oral hypoglycemic drugs
CPT/HCPCS: 99211

== ENCOUNTER → 2018-04-03 | Outpatient (CLI) | payer OTHER ==
[2018-04-03 14:53] VITALS: BP 133/85; PULSE 87; RESP 18
--- NOTE | 2018-04-05 05:46 | P.PN ---
Subjective Progress Note Date: 04/03/18 This is for a visit for this 48 years old female with a chronic history of severe low back pain secondary to lumbar spondylosis and sacroiliitis, we have done radiofrequency ablation of the sacroiliac joint, and recently we did left- sided sacroiliac joint steroid injection, patient reported that her pain improved significantly, she denies any motor or sensory deficit and she is very satisfied with the result of the treatment, she is using Ultram 50 mg when necessary for pain Objective - Vital Signs Vital signs: Vital Signs Temp Pulse 87 04/03/18 14:42 Resp 18 04/03/18 14:42 BP 133/85 04/03/18 14:42 Pulse Ox 95 04/03/18 14:42 - Exam Physical Examinations : 1-Constitutiona : Cooperative , not in acute distress . 2-HEENT : nech ; supple , no Lymphadenopathy , normal thyroid size . eyes : no ptosis , no icterus , no photophobia . ENT : normal of hearing , normal oropharynx , no Thrush . 3- Respiratory : Chest clear to auscultations Bilaterally , no wheezing , no Rhonchi . 4- Cardiovascular : regular rate and rhythem , S1 , S2 , no S3 , no S4. 5- Gastrointestinal : abdomen soft no tenderness , bowel sounds , no organomegally . 6- Genitourinary : Defferred . 7- neurologic : Cranial nerve II to XII intact , no focal neurological deffecit . 8-psychatric : alert , oriented X 3 , appropriate affect , intact judgment and insight . 9-Lymphatic : no Lymphadenopathy . 10- musculoskeltal : . Lumber spine moter stegnth lower extremities ,thigh and legs 5/5 Right side , 5/5 Left side Assessment and Plan Plan: Assessment and plan= sacroiliitis, lumbar spondylosis Doing very well after interventional pain management, she will follow up when necessary Time with Patient: Less than 30
== END | disposition home or self-care (01) ==
LOC: PNWHC3 13:20
PROVIDERS: ATTEND Specialist
DX: M47.816 Spondylosis without myelopathy or radiculopathy, lumbar region (principal); M46.1 Sacroiliitis, not elsewhere classified; Z79.899 Other long term (current) drug therapy
CPT/HCPCS: 99211

== ENCOUNTER → 2018-05-07 | Outpatient (CLI) | payer OTHER ==
[2018-05-07 13:08] VITALS: BP 161/96; PULSE 103; RESP 20
--- NOTE | 2018-05-07 14:31 | P.PAINPG ---
Subjective Progress Note Date: 05/07/18 This is for a visit for this 48 years old female with a chronic history of severe low back pain secondary to lumbar spondylosis and sacroiliitis, we have done radiofrequency ablation of the sacroiliac joint, and recently we did left- sided sacroiliac joint steroid injection, patient did very well for a few weeks and currently she is complaining of severe low back pain mainly on the left side , and the pain radiated to the left buttock area she denies any motor or sensory deficit and she is very satisfied with the result of the treatment, she is using Ultram 50 mg when necessary for pain Physical Examinations : 1-Constitutiona : Cooperative , not in acute distress . 2-HEENT : nech ; supple , no Lymphadenopathy , normal thyroid size . eyes : no ptosis , no icterus , no photophobia . ENT : normal of hearing , normal oropharynx , no Thrush . 3- Respiratory : Chest clear to auscultations Bilaterally , no wheezing , no Rhonchi . 4- Cardiovascular : regular rate and rhythem , S1 , S2 , no S3 , no S4. 5- Gastrointestinal : abdomen soft no tenderness , bowel sounds , no organomegally . 6- Genitourinary : Defferred . 7- neurologic : Cranial nerve II to XII intact , no focal neurological deffecit . 8-psychatric : alert , oriented X 3 , appropriate affect , intact judgment and insight . 9-Lymphatic : no Lymphadenopathy . 10- musculoskeltal : . Lumber spine moter stegnth lower extremities ,thigh and legs 5/5 Right side , 5/5 Left side Severe tenderness over the left sacroiliac joint Assessment and plan= left sacroiliitis, lumbar spondylosis Patient had a good result after the radiofrequency ablation of the left side sacroiliac joint, she's done very well after the left sacroiliac joint steroid injection, patient will be good candidate to have repeat radiofrequency ablation of the left sacroiliac joint, and if is not approved by her insurance ,then will do left- sided sacroiliac joint steroid injection Objective - Vital Signs Vital signs: Vital Signs Temp Pulse 103 H 05/07/18 12:58 Resp 20 05/07/18 12:58 BP 161/96 05/07/18 12:58 Pulse Ox 94 L 05/07/18 12:58 Intake & Output 05/06/18 05/07/18 05/07/18 18:59 06:59 18:59 Weight 113.398 kg PQRS Measure Charge Sheet Measure #130: Documentation of Current Meds in Medical Chart: Patient's medications documented in chart Measure #226: Tobacco Use: Screen & Cessation Intervention: Pt screened for tobacco use AND intervention given Measure #111: Pneumonia Vaccination: Pneumococcal vaccine NOT administered or previously given Measure #47: Advance Care Plan: Advance care planning discussed & documented, pt chose/unable to give Measure #412: Opioid Treatment Agreement: No documentation of signed opioid treatment agreement Measure #408: Opioid Therapy Follow-up Evaluation: Patient had NO f/u eval minimum every 3 months during opioid therapy Measure #317: Preventitive Care & Scrn High Bld Press & F/U: Pre-hypertensive or hypertensive BP documented, pt will f/u with PCP Measure #128: Body Mass Index (BMI) Screening & Follow-up: BMI documented ABOVE normal parameters - f/u documented Measure #131: Pain Assessment & Follow-up: Pain positive & plan documented, Follow-up scheduled Measure #431: Unhealthy Alcohol Use Preventative Care & Scrn: Patient not identified as an unhealthy alcohol user PQRS Narrative: Smoking Status Current every day smoker Do You Want the Pneumonia No Vaccine AT THIS TIME? Blood Pressure 161/96 Pain Intensity [Left Hip] 7 Hx Alcohol Use (MH) Yes Home Medications: Ambulatory Orders Oxybutynin Chloride [Ditropan] 5 mg PO HS 05/27/15 FLUoxetine HCL [PROzac] 20 mg PO DAILY 02/15/16 Omeprazole 20 mg PO DAILY 03/05/17 Naproxen 500 mg PO BID PRN 09/27/17 ALPRAZolam [Xanax] 0.5 mg PO BID 10/10/17 Albuterol Inhaler [Ventolin Hfa Inhaler] 1 - 2 puff INHALATION RT-Q6H PRN traMADol HCL [Ultram] 50 mg PO TID 11/22/17 Hydrochlorothiazide 50 mg PO DAILY 01/21/18 Qvar 2 puff INHALATION BID 01/21/18 Meclofenamate Sodium 100 mg PO TID PRN #25 capsule 02/05/18 metFORMIN HCL [metFORMIN HCL ER] 500 mg PO DAILY 02/25/18 metroNIDAZOLE [Flagyl] 500 mg PO BID 7 Days #14 tab 03/12/18 Controlled Substance Measures - Controlled Substance Measures Is patient prescribed a controlled substance at discharge?: No When asked, does pt state using other controlled substances?: No If prescribed controlled substance>3 days was MAPS reviewed?: No If Rx opioid, was Start Talking consent form obtained?: No If opioid is for acute pain is fill amount 7 days or less?: No Was information provided regarding opioid addiction?: No
== END | disposition home or self-care (01) ==
LOC: PNWHC3 12:53
PROVIDERS: ATTEND Specialist
DX: M46.1 Sacroiliitis, not elsewhere classified (principal); M47.816 Spondylosis without myelopathy or radiculopathy, lumbar region; F17.200 Nicotine dependence, unspecified, uncomplicated; Z98.890 Other specified postprocedural states; Z79.891 Long term (current) use of opiate analgesic; Z79.51 Long term (current) use of inhaled steroids; Z79.84 Long term (current) use of oral hypoglycemic drugs; Z79.899 Other long term (current) drug therapy
CPT/HCPCS: 99211

== ENCOUNTER 2018-05-23 06:20 | Day surgery (SDC) | payer OTHER ==
[~2018-05-23 06:20] MED LIST changes: -LACTATED RINGERS 1,000 ML IV SCH; +SODIUM CHLORIDE 0.9% 500 ML 500 ML IV SCH
[2018-05-23 07:05] VITALS: RESP 16; TEMP 97.9
[2018-05-23 07:06] LABS: Glucose,Whole Blood 171 mg/dL (75-99)
--- NOTE | 2018-05-23 07:54 | P.PCN ---
Date of Procedure: 05/23/18 Surgeon: Lou Live Pathology: none sent Condition: stable Disposition: PACU Description of Procedure: PRE and post OPERATIVE DIAGNOSIS: 1-Lumbosacral arthropathy. 2- sacroiliitis. 3-sacroiliac joint dysfunction PROCEDURES: 1-Lt radiofrequency thermocoagulation/ablation of the L5 dorsal ramus. 2- Lt multi-site radiofrequency thermocoagulation/ablation of the S1, S2 lateral branchs. The procedure was performed using fluoroscopic guidance during needle placement to assure proper position and maximize safety. ANESTHESIA: LOCAL ANESTHESIA with IV moderate conscious sedation using Versed and fentanyl EBL: NONE INDICATION/MEDICAL NECESSITY: History of low back pain secondary to sacroiliitis and lumbosacral arthropathy unresponsive to more conservative treatments. The patient reported more than 50 % relief of pain symptoms following 2 previous diagnostic blocks with Bupivacaine. PROCEDURE DESCRIPTION: The patient was seen and identified in the preoperative area. Risks, benefits, complications, and alternatives were discussed with the patient. The patient agreed to proceed with the procedure and signed the consent. Vital signs were checked before and after the procedure and they remained stable. Patient ambulated to the procedure room and time out was completed. The patient was placed in the prone position on the procedure table and a pillow was placed under the abdomen to reduce lumbar lordosis. The lumbosacral area was prepped and draped in the usual sterile fashion. Critical pause was taken. L5 Dorsal Ramus RF: Using left oblique fluoroscopy, the junction of the transverse process and the superior articular process of the Lt S1 vertebra, which correspond to the fluoroscopic image of the "eye of the Enrike dog" was identified. Subsequently, a 10-cm 20-gauge radiofrequency cannula with a 10-mm active tip was advanced under fluoroscopic guidance until contact was made with periosteum. At this level, motor stimulation was done at 2 Hz with stimulation of mulitifidus muscle contration at 1.5 volts. No radicular symptoms or paresthesias were produced during the testing. Subsequently, the L5 dorsal ramus was subjected to a radiofrequency ablation at a mode of 90 seconds at 80 degrees Celsius after negative motor and sensory testing and after injecting 0.5 ml of preservative free ropivacaine 0.5%. The needle was withdrawn intact the procedure was repeated on the left side using the same technique. S1, S2 Lateral Branch RF: The lateral margins of the Left S1, S2 foramina were identified using AP fluoroscopy. Under fluoroscopic guidance, three 10-cm 18-gauge radiofrequency cannula with a 10-mm active tip were inserted at 8-10 mm peripheral to the posterior S1 foramen, at various locations using clock-face coordinates. The center of the clock was registered at the lateral margin of the foramen. The 9: 30, 8:00, and 6:30 oclock positions were used. At this level, motor stimulation was done at 2 Hz. No radicular symptoms or paresthesias were produced during the testing. Subsequently, the S1 lateral branch was subjected to a radiofrequency ablation at a mode of 90 seconds at 80 degrees Celsius at the 3 levels after negative motor and sensory testing and after injecting 0.5 ml of preservative free Bupivacaine 0.5%. The same procedure was performed at the level of the S2 foramen. The needle was withdrawn intact after each injection. COMPLICATIONS: The patient tolerated the procedure well without any acute complications.
[2018-05-23] MEDS ORDERED: IV FLUID CONTINUATION 1,000 ML IV ONE (07:59)
[2018-05-23 08:03] VITALS: BP 139/93; PULSE 92
--- NOTE | 2018-05-23 09:02 | FL ---
EXAMINATION TYPE: FL guided pain mgmt statistic DATE OF EXAM: 05/23/2018 HISTORY: Flouroscopy time 38 seconds of fluoroscopy provided. IMPRESSION: 1. Fluoroscopy time.
== END 2018-05-23 08:32 | disposition home or self-care (01) ==
LOC: ORPAIN 06:20
PROVIDERS: ATTEND Anesthesiology
DX: M47.816 Spondylosis without myelopathy or radiculopathy, lumbar region (principal); M46.1 Sacroiliitis, not elsewhere classified; E11.9 Type 2 diabetes mellitus without complications; I10 Essential (primary) hypertension; G47.33 Obstructive sleep apnea (adult) (pediatric)
CPT/HCPCS: 81025; 64635; 64640 ×2; J2250; J3301; J3010; 64636; 99152

== ENCOUNTER → 2018-07-16 | Outpatient (CLI) | payer OTHER ==
[2018-07-16 15:06] VITALS: RESP 18
[2018-07-16 15:10] VITALS: BP 152/92; PULSE 107
--- NOTE | 2018-07-17 20:46 | P.PN ---
Subjective Progress Note Date: 07/16/18 This is for a visit for this 48 years old female with a chronic history of severe low back pain secondary to lumbar spondylosis , L4 5 herniated disc disease and sacroiliitis, we have done radiofrequency ablation of the sacroiliac joint, and currently she is complaining of severe low back pain mainly on the left side , and the pain radiated to the left buttock area she denies any motor or sensory deficit and she is very satisfied with the result of the treatment, she is using Ultram 50 mg when necessary for pain, Physical Examinations : 1-Constitutiona : Cooperative , not in acute distress . 2-HEENT : nech ; supple , no Lymphadenopathy , normal thyroid size . eyes : no ptosis , no icterus , no photophobia . ENT : normal of hearing , normal oropharynx , no Thrush . 3- Respiratory : Chest clear to auscultations Bilaterally , no wheezing , no Rhonchi . 4- Cardiovascular : regular rate and rhythem , S1 , S2 , no S3 , no S4. 5- Gastrointestinal : abdomen soft no tenderness , bowel sounds , no organomegally . 6- Genitourinary : Defferred . 7- neurologic : Cranial nerve II to XII intact , no focal neurological deffecit . 8-psychatric : alert , oriented X 3 , appropriate affect , intact judgment and insight . 9-Lymphatic : no Lymphadenopathy . 10- musculoskeltal : . Lumber spine moter stegnth lower extremities ,thigh and legs 5/5 Right side , 5/5 Left side Severe tenderness over the left sacroiliac joint Straight leg raising test positive bilaterally at 30, Delbert test positive bilaterally Assessment and plan= sacroiliitis, lumbar spondylosis, lumbar herniated disc disease at L4 -5 Patient continued to have severe low back pain after radiofrequency ablation of the sacroiliac joint. She could benefit from lumbar epidural steroid injection/caudal epidural steroid injection. Patient should continue her current medications naproxen 500 mg twice a day and throat 50 mg 3 times a day when necessary PQRS Measure Charge Sheet Measure #130: Documentation of Current Meds in Medical Chart: Patient's medications documented in chart Measure #226: Tobacco Use: Screen & Cessation Intervention: Pt screened for tobacco use AND intervention given Measure #111: Pneumonia Vaccination: Pneumococcal vaccine NOT administered or previously given Measure #47: Advance Care Plan: Advance care planning discussed & documented, pt chose/unable to give Measure #412: Opioid Treatment Agreement: No documentation of signed opioid treatment agreement Measure #408: Opioid Therapy Follow-up Evaluation: Patient had NO f/u eval minimum every 3 months during opioid therapy Measure #317: Preventitive Care & Scrn High Bld Press & F/U: Pre-hypertensive or hypertensive BP documented, pt will f/u with PCP Measure #128: Body Mass Index (BMI) Screening & Follow-up: BMI documented ABOVE normal parameters - f/u documented Measure #131: Pain Assessment & Follow-up: Pain positive & plan documented, Follow-up scheduled Measure #431: Unhealthy Alcohol Use Preventative Care & Scrn: Patient not identified as an unhealthy alcohol user PQRS Narrative: - Controlled Substance Measures Is patient prescribed a controlled substance at discharge?: No When asked, does pt state using other controlled substances?: No If prescribed controlled substance>3 days was MAPS reviewed?: No If Rx opioid, was Start Talking consent form obtained?: No If opioid is for acute pain is fill amount 7 days or less?: No Was information provided regarding opioid addiction?: No Objective - Vital Signs Vital signs: Vital Signs Temp Pulse 107 H 07/16/18 15:02 Resp 18 07/16/18 15:02 BP 152/92 07/16/18 15:02 Pulse Ox 95 07/16/18 15:02
== END ==
LOC: PNWHC3 14:27
PROVIDERS: ATTEND Specialist
DX: M51.26 Other intervertebral disc displacement, lumbar region (principal); M47.816 Spondylosis without myelopathy or radiculopathy, lumbar region; M46.1 Sacroiliitis, not elsewhere classified; Z79.891 Long term (current) use of opiate analgesic; Z79.899 Other long term (current) drug therapy
CPT/HCPCS: 99211

== ENCOUNTER 2018-08-05 06:18 | Day surgery (SDC) | payer OTHER ==
[2018-08-01 14:16] VITALS: BMI 44.2
[2018-08-05 06:55] LABS: Glucose,Whole Blood 141 mg/dL (75-99)
[2018-08-05 06:56] VITALS: TEMP 98.3
[2018-08-05] MEDS ORDERED: LACTATED RINGERS 1,000 ML IV ONE (06:56)
[2018-08-05] MEDS ORDERED: LIDOCAINE 1% 20 ML VIAL (10MG/ML) FOR IV START INTRADERMA ONE (06:57)
--- NOTE | 2018-08-05 07:24 | P.PCN ---
Date of Procedure: 08/05/18 Procedure(s) Performed: PREOPERATIVE DIAGNOSIS: 1-lumbar herniated disc disease. 2-lumbar spondylosis with lumbar facet arthropathy. 3-sacroiliitis POSTOPERATIVE DIAGNOSIS: Same as preoperative diagnoses. PROCEDURE: 1. Caudal epidural steroid injection under fluoroscopic guidance. 2. Caudal epidurogra ANESTHESIA: Moderate sedations with ,versed 2 mg ,and fentanyl 100 mcg EBL: None. PROCEDURE INDICATION: The patient with Low back pain radiating distally ,she is here for caudal epidural steroid injection. PROCEDURE DESCRIPTION: The patient was seen and identified in the preoperative area. Risks, benefits, complications, and alternatives were discussed with the patient. The patient agreed to proceed with the procedure and signed the consent. IV was started, and vital signs were stable. Patient was taken to the OR and time out was completed. The patient was placed in the prone position on procedure table and a pillow was placed under the abdomen to reduce lumbar lordosis. The lumbosacral area was prepped and draped in the usual sterile fashion. Critical pause was taken. Vital signs were closely monitored during the procedure. Using lateral fluoroscopy the anterior-posterior plates of the sacrum were identified and the skin and deeper tissues corresponding into sacrococcygeal ligament were anesthetized using approximately 3 mL of 1% lidocaine. Then under fluoroscopy, a 3-1/2-inch 20-gauge Tuohy epidural needle was guided through the sacrococcygeal ligament, and into the epidural space. After negative aspiration , a 2 mL of omnipaque-180 contrast dye was injected with excellent epidurogram. Again after negative aspiration for CSF, blood, and with no paresthesias, Depo-Medrol 40mg, 2ml of 1% preservative free Lidocaine with 6 ml of preservative free normal saline(total of 10ml)solution was injected with washout of epidurogram. Needle was withdrawn intact. Skin was cleansed, and bandage was applied. COMPLICATIONS: None DISPOSITION / PLANS: The patient was placed in a supine position and transferred to the recovery area in a stable condition for observation and was discharged from the recovery room after meeting discharge criteria. Home discharge instructions given to the patient by the staff. The patient was reexamined prior to discharge. The patient will schedule a follow up in the clinic in 2-4 weeks.
[2018-08-05] MEDS ORDERED: IV FLUID CONTINUATION 1,000 ML IV ONE (07:25)
[2018-08-05 07:29] VITALS: RESP 16
[2018-08-05 07:44] VITALS: BP 146/92; PULSE 91
--- NOTE | 2018-08-05 09:23 | FL ---
EXAMINATION TYPE: FL guided pain mgmt statistic DATE OF EXAM: 08/05/2018 HISTORY: Flouroscopy time 10 seconds of fluoroscopy provided. IMPRESSION: 1. Fluoroscopy time.
== END 2018-08-05 08:00 | disposition home or self-care (01) ==
LOC: ORPAIN 06:18
PROVIDERS: ATTEND Specialist
DX: M51.26 Other intervertebral disc displacement, lumbar region (principal); M47.816 Spondylosis without myelopathy or radiculopathy, lumbar region; M51.36 Other intervertebral disc degeneration, lumbar region; M46.1 Sacroiliitis, not elsewhere classified; M54.10 Radiculopathy, site unspecified; E11.9 Type 2 diabetes mellitus without complications
CPT/HCPCS: 81025; 62323; J2250; J1030; J3010; Q9966

== ENCOUNTER 2018-08-19 06:24 | Day surgery (SDC) | payer OTHER ==
[2018-08-15 11:29] VITALS: BMI 42.1
--- NOTE | 2018-08-19 06:41 | P.GSHP ---
History of Present Illness H&P Date: 08/19/18 Chief Complaint: Low back pain 48 years old female with a chronic history of severe low back pain secondary to lumbar spondylosis , L4 5 herniated disc disease and sacroiliitis, she is presenting for a epidural steroid injection today. No blood thinners, no contrast ALLERGY. VAS is a 6 out of 10 severity. Low back pain radiating into bilateral extremities. Heart: Regular rate and rhythm, no peripheral edema. Lungs: Nonlabored, clear to auscultation bilateral Past Medical History Past Medical History: COPD, Diabetes Mellitus, GERD/Reflux, Hypertension, Sleep Apnea/CPAP/BIPAP Additional Past Medical History / Comment(s): overactive bladder, chronic back pain and sleep apnea. 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 She has had a left labial cyst since 1989. History of Any Multi-Drug Resistant Organisms: None Reported Past Surgical History: Orthopedic Surgery, Tubal Ligation Additional Past Surgical History / Comment(s): Left ACL, medial meniscus repair. Right knee - medial meniscus repair. Right wrist fracture - surgical repair.RIGHT RING FINGER. PAIN CLINIC PROCEDURES Past Anesthesia/Blood Transfusion Reactions: No Reported Reaction Smoking Status: Current every day smoker - Past Family History Mother Family Medical History: Cancer, Diabetes Mellitus Additional Family Medical History / Comment(s): UTERINE AND BREAST CANCER, Medications and Allergies Home Medications Medication Instructions Recorded Confirmed Type Oxybutynin Chloride [Ditropan] 5 mg PO HS 05/27/15 08/15/18 History FLUoxetine HCL [PROzac] 20 mg PO DAILY 02/15/16 08/15/18 History Omeprazole 20 mg PO DAILY 03/05/17 08/15/18 History Naproxen 375 mg PO BID 09/27/17 08/15/18 History ALPRAZolam [Xanax] 0.5 mg PO BID 10/10/17 08/15/18 History Albuterol Inhaler [Ventolin Hfa 1 - 2 puff INHALATION RT-Q6H PRN 10/10/17 History Inhaler] traMADol HCL [Ultram] 50 mg PO TID 11/22/17 08/15/18 History Beclomethasone Dipropionate [Qvar 2 puff INHALATION BID 01/21/18 08/15/18 History 80 mcg] Hydrochlorothiazide 50 mg PO DAILY 01/21/18 08/15/18 History Meclofenamate Sodium 100 mg PO TID PRN #25 capsule 02/05/18 08/15/18 Rx metFORMIN HCL [metFORMIN HCL ER] 500 mg PO DAILY 02/25/18 08/15/18 History Allergies Allergy/AdvReac Type Severity Reaction Status Date / Time No Known Allergies Allergy Verified 08/15/18 11:20
--- NOTE | 2018-08-19 06:43 | P.PCN ---
Date of Procedure: 08/19/18 Description of Procedure: Date of Procedure: 08/19/2018 Procedure(s) Performed: PREOPERATIVE DIAGNOSIS: 1-lumbar herniated disc disease. 2-lumbar spondylosis with lumbar facet arthropathy. 3-sacroiliitis POSTOPERATIVE DIAGNOSIS: Same as preoperative diagnoses. PROCEDURE: 1. Caudal epidural steroid injection under fluoroscopic guidance. 2. Caudal epidurogram ANESTHESIA: Moderate sedations with versed 2 mg, and fentanyl 100mcg PROCEDURE INDICATION: The patient with Low back pain radiating distally. No blood thinners. Risks and benefits discussed with the patient which include bleeding, infection, rare nerve injury. PROCEDURE DESCRIPTION: The patient was seen and identified in the preoperative area. The patient agreed to proceed with the procedure and signed the consent. IV was started, and vital signs were stable. Patient was taken to the OR and time out was completed. The patient was placed in the prone position on procedure table and a pillow was placed under the abdomen to reduce lumbar lordosis. The lumbosacral area was prepped and draped in the usual sterile fashion. Critical pause was taken. Vital signs were closely monitored during the procedure. Using lateral fluoroscopy the anterior-posterior plates of the sacrum were identified and the skin and deeper tissues corresponding into sacrococcygeal ligament were anesthetized using approximately 3 mL of 1% lidocaine. Then under fluoroscopy, a 3-1/2-inch 20-gauge Tuohy epidural needle was guided through the sacrococcygeal ligament, and into the epidural space. After negative aspiration , a 2 mL of omnipaque-180 contrast dye was injected with excellent epidurogram. Again after negative aspiration for CSF, blood, and with no paresthesias, Depo-Medrol 40mg, 2ml of 1% preservative free Lidocaine with 6 ml of preservative free normal saline(total of 10ml)solution was injected with washout of epidurogram. Needle was withdrawn intact. Skin was cleansed, and bandage was applied. COMPLICATIONS: None DISPOSITION / PLANS: The patient was placed in a supine position and transferred to the recovery area in a stable condition for observation and was discharged from the recovery room after meeting discharge criteria. Home discharge instructions given to the patient by the staff. The patient was reexamined prior to discharge. The patient will schedule a follow up in the clinic in 2-4 weeks.
[2018-08-19] MEDS ORDERED: LIDOCAINE 1% 20 ML VIAL (10MG/ML) FOR IV START INTRADERMA ONE (06:44)
[2018-08-19] MEDS ORDERED: LACTATED RINGERS 1,000 ML IV ONE ×2 (06:46→07:25)
[2018-08-19 06:50] VITALS: TEMP 97.3
[2018-08-19 06:59] LABS: Glucose,Whole Blood 140 mg/dL (75-99)
[2018-08-19 07:41] VITALS: RESP 16
[2018-08-19 07:58] VITALS: BP 146/90; PULSE 88
--- NOTE | 2018-08-19 08:51 | FL ---
Fluoroscopy HISTORY: Pain 7 seconds fluoroscopy time supplied to the referring clinician. 2 intraoperative C-arm images docume nt the procedure. See dictated report from anesthesia.
== END 2018-08-19 08:00 | disposition home or self-care (01) ==
LOC: ORPAIN 06:24
PROVIDERS: ATTEND Anesthesiology
DX: G89.29 Other chronic pain (principal); M47.816 Spondylosis without myelopathy or radiculopathy, lumbar region; M51.26 Other intervertebral disc displacement, lumbar region; M46.1 Sacroiliitis, not elsewhere classified; M54.10 Radiculopathy, site unspecified; K21.9 Gastro-esophageal reflux disease without esophagitis; J44.9 Chronic obstructive pulmonary disease, unspecified; I10 Essential (primary) hypertension; F17.200 Nicotine dependence, unspecified, uncomplicated; E11.9 Type 2 diabetes mellitus without complications; G47.30 Sleep apnea, unspecified; Z99.89 Dependence on other enabling machines and devices; Z79.84 Long term (current) use of oral hypoglycemic drugs; Z79.899 Other long term (current) drug therapy; Z79.891 Long term (current) use of opiate analgesic
CPT/HCPCS: 81025; 62323; J2250; J1030; J2001; J3010; Q9966

== ENCOUNTER → 2018-09-16 | Outpatient (CLI) | payer OTHER ==
[2018-09-16 14:43] VITALS: BP 184/86; PULSE 99; RESP 18
--- NOTE | 2018-09-16 14:59 | P.PN ---
Subjective Progress Note Date: 09/16/18 This is a 48-year-old lady with history of chronic lower back pain status post bilateral secreted joint RFA. The patient still has left lower back pain with muscle spasm in the left thigh. Today, pt denies new-onset weakness, bowel/bladder incontinence, or any other signs or symptoms of cauda equina syndrome. There are no signs of acute intoxication, and no indications of medication diversion or overuse. In addition to above, 13-point review of systems is also negative for chest pain, shortness of breath, changes in vision, changes in hearing, new onset weakness, abdominal pain, diarrhea, extreme fatigue, malaise, fever, skin changes, homicidal or suicidal ideation, or bowel or bladder incontinence. Vital Signs: Reviewed in EMR Gen: AAOx3, NAD HEENT: PERRLA,hearing grossly normal Pulm: resp unlabored,CTA Heart:S1,S2, No Mur Neck: supple, trachea midline Neuro exam of the lower extremities: Within normal limits except for absent ankle reflexes bilaterally. Straight leg raising test: Delbert's test: Negative bilaterally Range of motion of the lumbar spine: Facet loading test: Positive Tenderness in the paravertebral musculature: On the left lower lumbar paravertebral area Neuro: CN II-XII grossly intact, Imaging: Reviewed in EMR/chart Assessment: Lumbar spondylosis without myelopathy Bilateral sacroiliac joint dysfunction Lumbar radiculopathy Diabetes Morbid obesity Plan: 1. Explanation: Opioid and psychological risk scores were reviewed. Diagnoses, prognoses, and multiple treatment options including but not limited to physical therapy, interventional therapies, adjuvant medical therapies, narcotic medication therapies, and surgery were discussed with the patient and all questions were answered to the patient's satisfaction. 2. Opioid agreement: Signed with the patient and the patient is warned not to use opioids while driving or before driving and not to combine opioids with benzodiazepines or alcohol. 3. Counseling: The patient was counseled extensively on SMOKING CESSATION, BODY MASS INDEX, EXERCISE. Specifically, the patient was instructed regarding the importance of smoking cessation, obesity, and exercise in the context of both chronic pain and overall health. 4. Procedures: The patient may potentially benefit from getting diagnostic lumbar medial branch block in the future if her pain does not get better 5. Consultations: None 6. Investigations: None 7. Medications: I will add Zanaflex 2 mg twice a day if needed for pain I'll give her only 10 pills. The patient is to continue the rest of her medications as per her primary care physician 8. Disposition: Return to clinic as needed 9. Maps were reviewed and were appropriate. PQRS measures: 1-Patient's medications are documented in the chart. 2-Tobacco use is negative, counseling given 3-Patient has not had a pneumococcal vaccine. 4-Advanced care planning discussed, patient unable to give 5-Opioid contract not signed with the patient. We do not prescribing opioids. 6-Pain positive, follow-up visit or procedure scheduled 7-Patient's blood pressure measured and documented above normal limits. Patient will follow up with her primary care physician for better blood pressure control. 8-Patient's weight was measured, and body mass index ABOVE the normal limits, and counseling was done. Patient instructed to follow up with PCP. 9-Patient WAS NOT identified as an unhealthy alcohol user. Objective - Vital Signs Vital signs: Vital Signs Temp Pulse 99 09/16/18 14:36 Resp 18 09/16/18 14:36 BP 184/86 09/16/18 14:36 Pulse Ox 97 09/16/18 14:36 Intake & Output 09/15/18 09/16/18 09/16/18 18:59 06:59 18:59 Weight 108.409 kg
== END | disposition home or self-care (01) ==
LOC: PNWHC3 14:24
PROVIDERS: ATTEND Anesthesiology
DX: G89.29 Other chronic pain (principal); M47.26 Other spondylosis with radiculopathy, lumbar region; M53.88 Other specified dorsopathies, sacral and sacrococcygeal region; M62.838 Other muscle spasm; E66.01 Morbid (severe) obesity due to excess calories; E11.9 Type 2 diabetes mellitus without complications; Z79.899 Other long term (current) drug therapy; Z68.41 Body mass index [BMI] 40.0-44.9, adult
CPT/HCPCS: 99211

== ENCOUNTER → 2018-11-26 | Outpatient (CLI) | payer OTHER ==
[2018-11-26 11:43] VITALS: BP 154/97; PULSE 78; RESP 18
--- NOTE | 2018-11-26 11:52 | P.PN ---
Subjective Progress Note Date: 11/26/18 Verna is a 48-year-old female presenting today with continued left buttock pain. She reports her back pain significantly improve after having the epidural injections. She denies having any lower back pain at this time. She has a persistent left buttock pain which is worse when she sits on it. Pain is worse when trying to stretch her leg. She has difficulty with abducting the hip secondary to the pain in the buttock. She reports that point tenderness over the buttock area on the left side. Denies any weakness in the lower extremity secondary to that. Denies any bowel or bladder incontinence. Objective - Vital Signs Vital signs: Vital Signs Temp Pulse 78 11/26/18 11:33 Resp 18 11/26/18 11:33 BP 154/97 11/26/18 11:33 Pulse Ox 95 11/26/18 11:33 Intake & Output 11/25/18 11/26/18 11/26/18 18:59 06:59 18:59 Weight 105.233 kg - Exam PHYSICAL EXAM: Constitutional: Awake and alert no distress, obese Cardiovascular exam: Regular rate, no lower extremity edema, palpable pulses bilaterally Respiratory exam: No audible wheezing, no accessory muscle usage Abdominal exam: Soft nontender Muscular skeletal exam: - Cervical spine: Nontender to palpation bilaterally. Range of motion is not limited. - Lumbar spine: Preserved lumbar lordosis. No changes in skin. Nontender palpation bilateral. Patient has full range of motion in flexion and extension as well as lateral sidebending. Straight leg raise is negative. Facet loading is negative. Hips: No tenderness to palpation over the hip joint. There is no pain with flexion of the hip joint. There is no pain with abduction or abduction in the hip joint. There is pain on left side with extension of the hip joint with pain in the buttock area. She does have point tenderness over the ischial bursa on the left side. There is tenderness to palpation is along with pain with extension of the hip while laying on her right side. Nontender over the SI joints. YAJAIRA Negative, Gaenselons negative, SI Joint compression negative. Neuro exam: Normal sensation bilateral upper and lower extremities. Deep tendon reflexes are 2+ bilaterally. Davidson's is negative Psychiatric exam: Cooperative, good insight Assessment and Plan Assessment: Left ischial bursitis Plan: I advised the patient to trial conservative therapy including stretching and have given her specific exercises to perform to improve her overall physical health. I advised her to try to rub a ball over the ischial bursa as well as stretching her quadriceps and hamstrings on a regular basis. She would like to move forward with a left ischial bursa injection
== END | disposition home or self-care (01) ==
LOC: PNWHC3 11:24
PROVIDERS: ATTEND Hospitalist
DX: M70.72 Other bursitis of hip, left hip (principal)
CPT/HCPCS: 99211

== ENCOUNTER 2018-12-10 06:07 | Day surgery (SDC) | payer OTHER ==
[2018-12-05 14:49] VITALS: BMI 40.7
[2018-12-10] MEDS ORDERED: LIDOCAINE 1% 20 ML VIAL (10MG/ML) FOR IV START INTRADERMA ONE (06:36)
[2018-12-10] MEDS ORDERED: LACTATED RINGERS 1,000 ML IV ONE (06:36)
[2018-12-10 06:39] LABS: Glucose,Whole Blood 122 mg/dL (75-99)
[2018-12-10 06:41] VITALS: RESP 16; TEMP 97
--- NOTE | 2018-12-10 07:07 | P.PCN ---
Date of Procedure: 12/10/18 Description of Procedure: Preoperative diagnosis ischial bursitis Postoperative diagnosis same Procedure performed left ischial bursa injection Anesthesia: Local +2 mg of Versed Procedure details: Patient was brought from the preoperative area after signing consent for left shoulder bursa injection. Patient placed in the prone position on the operative table. The area was cleansed with chlorhexidine. Fluoroscopy was used to identify the ischial spine on the left side. The area above the ischial spine was anesthetized with 5 ML's of 1% lidocaine. A 5 inch 22-gauge spinal needle was advanced to the level of the ischial spine. Fluoroscopy was used to identify the area and to manipulate the needle. At that 0.5 ML 0.5% ropivacaine +40 mg of Kenalog was deposited in the ischial bursa. Aspiration was negative before and after the injection. Patient tolerated the procedure well. Band-Aid was placed over the injection site. Patient was sent to the recovery room and was seen prior to discharge. Patient will follow up in the clinic in 4-8 weeks
[2018-12-10] MEDS ORDERED: IV FLUID CONTINUATION 700 ML IV ONE (07:13)
[2018-12-10 07:29] VITALS: BP 134/91; PULSE 75
--- NOTE | 2018-12-10 08:51 | FL ---
EXAMINATION TYPE: FL guided pain mgmt statistic DATE OF EXAM: 12/10/2018 HISTORY: Flouroscopy time 3 seconds of fluoroscopy provided. IMPRESSION: 1. Fluoroscopy time.
== END 2018-12-10 07:39 | disposition home or self-care (01) ==
LOC: ORPAIN 06:07
PROVIDERS: ATTEND Hospitalist
DX: M70.72 Other bursitis of hip, left hip (principal)
CPT/HCPCS: 20610; J2250; J3301

== ENCOUNTER → 2019-01-13 | Outpatient (CLI) | payer OTHER ==
[2019-01-13 12:22] VITALS: BP 164/82; PULSE 83; RESP 18
--- NOTE | 2019-01-13 13:14 | P.PAINPG ---
Subjective Progress Note Date: 01/13/19 Verna is a 48-year-old female presenting today with continued left buttock pain. She underwent a left greater trochanter bursa injection and reports no relief from this injection. She had undergone a left SI joint radiofrequency ablation in May 2018 and reports that this provided significant relief, greater than 50% and is still experiencing relief however the pain seems to have returned. There have been no changes to the quality or location of her pain. She reports that point tenderness over the buttock area on the left side. Denies any weakness in the lower extremity secondary to that. Denies any bowel or bladder incontinence, fevers, chills, suicidal or homicidal ideation.. Objective - Vital Signs Vital signs: Reviewed in EMR - Exam PHYSICAL EXAM: Constitutional: Awake and alert no distress, obese Cardiovascular exam: No pedal edema Respiratory exam: No audible wheezing, no accessory muscle usage Abdominal exam: Nondistended Muscular skeletal exam: - Lumbar spine: Preserved lumbar lordosis. No changes in skin. Nontender palpation bilateral. Patient has limited range of motion in flexion and extension. Straight leg raise is negative. Facet loading is negative. Tenderness over the left SI joints. YAJAIRA positive on left, sacral thrust positive. Neuro exam: Normal sensation bilateral upper and lower extremities. Deep tendon reflexes are 2+ bilaterally. Clonus is negative Psychiatric exam: Cooperative, good insight Assessment and Plan Assessment: Left sacroiliitis Plan: 1. Repeat Left side joint radiofrequency ablation. Risks and benefits of this procedure were discussed patient's questions answered. 2. Referral to physical therapy for SI joint exercises, lumbar strengthening and stretching, core stretching 3. Encouraged weight loss. Objective - Vital Signs Vital signs: Vital Signs Temp Pulse 83 01/13/19 12:16 Resp 18 01/13/19 12:16 BP 164/82 01/13/19 12:16 Pulse Ox 97 01/13/19 12:16 Intake & Output 01/12/19 01/13/19 01/13/19 18:59 06:59 18:59 Weight 105.233 kg PQRS Measure Charge Sheet Measure #130: Documentation of Current Meds in Medical Chart: Patient's medications documented in chart Measure #226: Tobacco Use: Screen & Cessation Intervention: Pt screened for tobacco use AND intervention given Measure #47: Advance Care Plan: Advance care planning discussed & documented, pt chose/unable to give Measure #412: Opioid Treatment Agreement: No documentation of signed opioid treatment agreement Measure #408: Opioid Therapy Follow-up Evaluation: Patient had NO f/u eval minimum every 3 months during opioid therapy Measure #317: Preventitive Care & Scrn High Bld Press & F/U: Pre-hypertensive or hypertensive BP documented, pt will f/u with PCP Measure #128: Body Mass Index (BMI) Screening & Follow-up: BMI documented ABOVE normal parameters - f/u documented Measure #131: Pain Assessment & Follow-up: Pain positive & plan documented, Follow-up scheduled Measure #431: Unhealthy Alcohol Use Preventative Care & Scrn: Patient not identified as an unhealthy alcohol user PQRS Narrative: Smoking Status Current every day smoker Blood Pressure 164/82 Pain Intensity [Left Lower] 6 Scale Used Numeric (1 - 10) Hx Alcohol Use (MH) Yes Home Medications: Ambulatory Orders Oxybutynin Chloride [Ditropan] 5 mg PO HS 05/27/15 FLUoxetine HCL [PROzac] 20 mg PO DAILY 02/15/16 Omeprazole 20 mg PO DAILY 03/05/17 Naproxen 375 mg PO BID 09/27/17 ALPRAZolam [Xanax] 0.5 mg PO BID 10/10/17 Albuterol Inhaler [Ventolin Hfa Inhaler] 1 - 2 puff INHALATION RT-Q6H PRN 10/10/17 traMADol HCL [Ultram] 50 mg PO TID 11/22/17 Beclomethasone Dipropionate [Qvar 80 mcg] 2 puff INHALATION BID 01/21/18 Hydrochlorothiazide 50 mg PO DAILY 01/21/18 Meclofenamate Sodium 100 mg PO TID PRN #25 capsule 02/05/18 metFORMIN HCL [metFORMIN HCL ER] 500 mg PO DAILY 02/25/18 Beclomethasone Dip 80 Mcg/Puff [Qvar 80 mcg] 2 puff PO DAILY 09/16/18 Controlled Substance Measures - Controlled Substance Measures Is patient prescribed a controlled substance at discharge?: No
== END | disposition home or self-care (01) ==
LOC: PNWHC3 12:04
PROVIDERS: ATTEND Anesthesiology
DX: M46.1 Sacroiliitis, not elsewhere classified (principal); F17.200 Nicotine dependence, unspecified, uncomplicated; Z79.1 Long term (current) use of non-steroidal anti-inflammatories (NSAID); Z79.51 Long term (current) use of inhaled steroids; Z79.84 Long term (current) use of oral hypoglycemic drugs; Z79.899 Other long term (current) drug therapy; Z79.891 Long term (current) use of opiate analgesic
CPT/HCPCS: 99211

== ENCOUNTER 2019-01-23 06:23 | Day surgery (SDC) | payer OTHER ==
[2019-01-21 15:37] VITALS: BMI 41.1
[~2019-01-23 06:23] MED LIST changes: +LACTATED RINGERS 1,000 ML IV SCH; -SODIUM CHLORIDE 0.9% 500 ML 500 ML IV SCH
[2019-01-23 06:45] VITALS: TEMP 97.8
[2019-01-23] MEDS ORDERED: LACTATED RINGERS 1,000 ML IV ONE (06:45)
[2019-01-23 06:47] LABS: Glucose,Whole Blood 118 mg/dL (75-99)
[2019-01-23] MEDS ORDERED: LIDOCAINE 1% 20 ML VIAL (10MG/ML) FOR IV START INTRADERMA ONE (06:48)
[2019-01-23] MEDS ORDERED: IV FLUID CONTINUATION 1,000 ML IV ONE (07:50)
[2019-01-23 07:55] VITALS: RESP 16
--- NOTE | 2019-01-23 07:58 | P.PCN ---
Date of Procedure: 01/23/19 Procedure(s) Performed: Bipolar Radiofrequency Ablation of Dorasal Ramus of L5, Lateral Branches of S1 and S2 ATTENDING PHYSICIAN: Juanjo Peter MD PREOPERATIVE DIAGNOSIS: Left Sacroiliac Joint Pain/ sacroilitis POSTOPERATIVE DIAGNOSIS: same PROCEDURE PERFORMED: Bipolar Radiofrequency Ablation of Dorasal Ramus of L5, Lateral Branches of S1, S2 SIDE: Left IV SEDATION none ESTIMATED BLOOD LOSS: None FLUOROSCOPY WAS USED. INDICATIONS FOR PROCEDURE: Patient has a clinical picture consistent with left sacroiliac joint dysfunction and has responded well to sacral radiofrequency ablation in the past. PROCEDURE AND FINDINGS: The patient was greeted in the pre procedure holding area. The risk, benefits and alternatives to the procedure were again reviewed with the patient and written informed consent was placed in the chart. Prior to the procedure a time out was completed, verifying correct patient, procedure, site, positioning, and implants and/or special equipment. An IV line was placed. The patient was taken to the procedure room and positioned prone on the fluoroscopy table. Routine monitors were applied including EKG leads, blood pressure cuff, and pulse oximetry. The skin was prepped with chlorhexidine and draped in the usual sterile fashion. A fluoroscopic AP view was used to identify the sacral ala and the left SI joint with the associated S1, S2 foramens medial to the SI joint line. A marker was used to dennis the sacral ala and the lateral aspects of the S1, S2 foramen. Scott were made 1 cm apart to perform strip lesion. Then overlying skin and subcutaneous tissues were anesthetized using a 25-gauge 1-1/2-inch needle with 1% preservative free lidocaine for a total volume of 10 mls. Under AP and lateral fluorscopic views, 7 18 gauge 100 mm Sebeniecher Appraisalsan Bipolar RF needles with a 10 mm active tip were inserted at the L5 dorsal ramus and the lateral aspects of the S1, S2 foramens and advanced until it touched os. Confirmation of position was then made with a lateral fluoroscopic view to ensure that the tips were posterior to the posterior plate of the sacrum. Motor stimulation at 2 Hz and up to 2V was conducted between sequential probes. There was no observable motor movement in the lower extremities and the patient confirmed this by self-report. After satisfactory motor testing was completed at each level, approximately 0.5 mL of 4% Lidocaine was injected to anesthetize the radiofrequency ablation target. Radiofrequency probes were initially placed in probe numbers 1 & 2 and 4 & 5 Subsequently, bipolar radiofrequency ablation was carried out at each of the aforementioned locations with a probe temperature set to 85C for 150 second s. The electrodes in spots 1 and 4 were then leap-frogged to spots 3 and 6 where bipolar radiofrequency ablation was again carried out with a probe temperature set to 85C for 150 seconds. Finally, the electrodes in spots 2 and 5 were then leap-frogged to spots 4 and 7 where bipolar radiofrequency ablation was again carried out with a probe temperature set to 85C for 150 seconds. Following lesioning the needles were removed. The needle insertion site was dressed appropriately. The patient was taken to the recovery room where they were monitored for a brief period of time. They tolerated the procedure well and were discharged home in stable condition with post procedural instructions. Follow-up will be in clinic in 4 weeks. COMPLICATIONS: None Comments: S3 foramen was unable to be visualized
[2019-01-23 08:07] VITALS: BP 132/86; PULSE 76
--- NOTE | 2019-01-23 10:46 | FL ---
Fluoroscopy HISTORY: Pain 14 seconds fluoroscopy time supplied to the referring clinician. 3 intraoperative C-arm images docum ent the procedure. See dictated report from anesthesia.
== END 2019-01-23 08:23 | disposition home or self-care (01) ==
LOC: ORPAIN 06:23
PROVIDERS: ATTEND Anesthesiology
DX: M46.1 Sacroiliitis, not elsewhere classified (principal); M53.3 Sacrococcygeal disorders, not elsewhere classified
CPT/HCPCS: 64635; 64636 ×2; 81025; J2250; J3010; 99152; 99153

== ENCOUNTER → 2019-02-20 | Outpatient (CLI) | payer OTHER ==
[2019-02-20 13:54] VITALS: BP 149/88; PULSE 90; RESP 20
--- NOTE | 2019-02-23 18:02 | P.PAINPG ---
Subjective Progress Note Date: 02/20/19 This is a follow-up visit for this 48 year old female, with a chronic history of severe low back pain, radiation to the left buttock, she is diagnosed with lumbar spondylosis with lumbar facet arthropathy, and sacroiliitis, previously we did a left sacroiliac joint steroid injection and radiofrequency ablation of the left sacroiliac joint, she continued to have severe low back pain with radiation to the left buttock, and also she is having severe pain Lenk sensation in the left lower extremity, associated with numbness, she is able to ambulate she has no motor or sensory deficits and has no fever or night sweats but she has no change in the bowel movement or urination, she continued to use Ultram 50 mg every 8 hours when necessary and naproxen twice a day when necessary, she denies any side effect of the medication Objective - Vital Signs Vital signs: Vital Signs Temp Pulse 90 02/20/19 13:47 Resp 20 02/20/19 13:47 BP 149/88 02/20/19 13:47 Pulse Ox 97 02/20/19 13:47 - Exam Physical Examinations : -Constitutiona : Cooperative , not in acute distress . -HEENT : nech : supple , no Lymphadenopathy , normal thyroid size . eyes : no ptosis , no icterus, no photophobia . ENT : normal of hearing , normal oropharynx , no Thrush . - Respiratory : Chest clear to auscultations Bilaterally , no wheezing , no Rhonchi . - Cardiovascula : regular rate and rhythem , S1 , S2 , no S3 , no S4. - Gastrointestina : abdomen soft no tenderness , bowel sounds , no organomegally . - Genitourinary : Defferred . - neurologic : Cranial nerve II to XII intact , no focal neurological deffecit . -psychatric : alert , oriented X 3 , appropriate affect , intact judgment and insight . -Lymphatic : no Lymphadenopathy . - musculoskeltal : Lumber spine moter stegnth lower extremities ,thigh and legs 5/5 Right side , 5/5 Left side deep tendon reflexes : normal Knee Jerk , normal ankle Jerk positive lumber facet Loading Test Range of motion of the lumbar spine Flexion 30 degrees, extension 10 degrees strait leg raising test , positive at 30 degree Fabere test positive RT and positive LT . Sever tenderness over the Sacroiliac joint on the R and L sides Gaenslen test positive bilaterally. Seated flexion test positive bilaterally. Assessment and Plan Plan: Assessment and plan= chronic severe low back pain secondary to lumbar spondylosis with lumbar facet arthropathy, and left sacroiliitis Patient continued to have severe low back pain and some numbness and tingling sensation in the lower extremity, We'll order MRI of the lumbar spine, to evaluate the etiology of low back pain Patient should continue her current medications are Ultram 50 mg when necessary,and naproxen Description of this in the pain clinic after we get the MRI report Time with Patient: Less than 30 PQRS Measure Charge Sheet Measure #130: Documentation of Current Meds in Medical Chart: Patient's medications documented in chart Measure #226: Tobacco Use: Screen & Cessation Intervention: Pt screened for tobacco use AND intervention given Measure #111: Pneumonia Vaccination: Pneumococcal vaccine NOT administered or previously given Measure #47: Advance Care Plan: Advance care planning discussed & documented, pt chose/unable to give Measure #412: Opioid Treatment Agreement: No documentation of signed opioid treatment agreement Measure #408: Opioid Therapy Follow-up Evaluation: Patient had NO f/u eval minimum every 3 months during opioid therapy Measure #317: Preventitive Care & Scrn High Bld Press & F/U: Pre-hypertensive or hypertensive BP documented, pt will f/u with PCP Measure #128: Body Mass Index (BMI) Screening & Follow-up: BMI documented ABOVE normal parameters - f/u documented Measure #131: Pain Assessment & Follow-up: Pain positive & plan documented, Follow-up scheduled Measure #431: Unhealthy Alcohol Use Preventative Care & Scrn: Patient not identified as an unhealthy alcohol user PQRS Narrative: Smoking Status Current every day smoker Blood Pressure 149/88 Pain Intensity [Left Lower Hip 10 ] Scale Used Numeric (1 - 10) Hx Alcohol Use (MH) Yes Home Medications: Ambulatory Orders Oxybutynin Chloride [Ditropan] 5 mg PO HS 05/27/15 FLUoxetine HCL [PROzac] 20 mg PO DAILY 02/15/16 Omeprazole 20 mg PO DAILY 03/05/17 Naproxen 375 mg PO BID 09/27/17 ALPRAZolam [Xanax] 0.5 mg PO BID 10/10/17 Albuterol Inhaler [Ventolin Hfa Inhaler] 1 - 2 puff INHALATION RT-Q6H PRN 10/10/17 traMADol HCL [Ultram] 50 mg PO TID 11/22/17 Hydrochlorothiazide 50 mg PO DAILY 01/21/18 Meclofenamate Sodium 100 mg PO TID PRN #25 capsule 02/05/18 metFORMIN HCL [metFORMIN HCL ER] 500 mg PO DAILY 02/25/18 Beclomethasone Dip 80 Mcg/Puff [Qvar 80 mcg] 2 puff PO DAILY 09/16/18 Controlled Substance Measures - Controlled Substance Measures Is patient prescribed a controlled substance at discharge?: No
== END ==
LOC: PNWHC3 12:52
PROVIDERS: ATTEND Specialist
DX: G89.29 Other chronic pain (principal); M47.816 Spondylosis without myelopathy or radiculopathy, lumbar region; M46.96 Unspecified inflammatory spondylopathy, lumbar region; M46.1 Sacroiliitis, not elsewhere classified; F17.200 Nicotine dependence, unspecified, uncomplicated; Z79.899 Other long term (current) drug therapy; Z79.891 Long term (current) use of opiate analgesic; Z79.82 Long term (current) use of aspirin
CPT/HCPCS: 99211

== ENCOUNTER → 2019-03-05 | Outpatient (CLI) | payer OTHER ==
--- NOTE | 2019-03-05 09:20 | MR ---
EXAMINATION TYPE: MR lumbar spine wo con DATE OF EXAM: 03/05/2019 COMPARISON: MRI lumbar spine dated 03/22/2016 HISTORY: Lumbar radiculopathy TECHNIQUE: Multiplanar, multisequence images of the lumbar spine were acquired. FINDINGS: The lumbar spine vertebral bodies maintain normal vertebral body height and alignment. Mult ilevel disc desiccation is seen. Conus medullaris is unremarkable terminating at L1-L2. L1-L2: Normal disc appearance without desiccation. No herniation, protrusion or disc bulging. No ca nal stenosis is present. Foramina are patent bilaterally. L2-L3: Normal disc appearance without desiccation. No herniation, protrusion or disc bulging. No ca nal stenosis is present. Foramina are patent bilaterally. L3-L4: Small broad-based disc bulge and mild facet arthropathy without spinal canal stenosis or neura l foraminal narrowing. L4-L5: There remains a left paracentral annular tear and unchanged. Small paracentral protrusion mild ly narrowing the left lateral recess. Right neuroforamen and spinal canal are patent. L5-S1: Disc desiccation and broad-based disc bulge as well as mild facet arthropathy without spinal c anal stenosis or neural foraminal narrowing. IMPRESSION: Unchanged very small left paracentral annular tear and left paracentral protrusion at L4-5 in compari son to 2016 resulting in mild left neural foraminal narrowing at L4-5. No new disc herniation.
== END | disposition home or self-care (01) ==
LOC: RADMRIMAIN 08:05
PROVIDERS: ATTEND Specialist
DX: M48.061 Spinal stenosis, lumbar region without neurogenic claudication (principal); M51.16 Intervertebral disc disorders with radiculopathy, lumbar region; M53.86 Other specified dorsopathies, lumbar region
CPT/HCPCS: 72148

== ENCOUNTER → 2019-03-20 | Outpatient (CLI) | payer OTHER ==
[2019-03-20 13:49] VITALS: BP 137/91; PULSE 94; RESP 18
--- NOTE | 2019-03-20 14:29 | P.PN ---
Subjective Progress Note Date: 03/20/19 This is a follow-up visit for this 48 year old female, with a chronic history of severe low back pain, radiation to the left buttock, she is diagnosed with lumbar spondylosis with lumbar facet arthropathy, and sacroiliitis, previously we did a left sacroiliac joint steroid injection and radiofrequency ablation of the left sacroiliac joint, she continued to have severe low back pain with radiation to the left buttock, and also she is having severe pain , tingling sensation in the left lower extremity, associated with numbness, she is able to ambulate she has no motor or sensory deficits and has no fever or night sweats but she has no change in the bowel movement or urination, she continued to use U ltram 50 mg every 8 hours when necessary and naproxen twice a day when necessary, she denies any side effect of the medication, the patient had the new MRI done and it showed that patient had left side L4 5 annular tear, and L3 4 and L5-S1 degenerative disc disease and facet arthropathy Physical Examinations : -Constitutiona : Cooperative , not in acute distress . -HEENT : nech : supple , no Lymphadenopathy , normal thyroid size . eyes : no ptosis , no icterus, no photophobia . ENT : normal of hearing , normal oropharynx , no Thrush . - Respiratory : Chest clear to auscultations Bilaterally , no wheezing , no Rhonchi . - Cardiovascula : regular rate and rhythem , S1 , S2 , no S3 , no S4. - Gastrointestina : abdomen soft no tenderness , bowel sounds , no organomegally . - Genitourinary : Defferred . - neurologic : Cranial nerve II to XII intact , no focal neurological deffecit . -psychatric : alert , oriented X 3 , appropriate affect , intact judgment and insight . -Lymphatic : no Lymphadenopathy . - musculoskeltal : Lumber spine moter stegnth lower extremities ,thigh and legs 5/5 Right side , 5/5 Left side deep tendon reflexes : normal Knee Jerk , normal ankle Jerk positive lumber facet Loading Test Range of motion of the lumbar spine Flexion 30 degrees, extension 10 degrees strait leg raising test , positive at 30 degree Fabere test positive RT and positive LT . Sever tenderness over the Sacroiliac joint on the L sides Gaenslen test positive left Seated flexion test positive left side Assessment and Plan Plan: Assessment and plan= lumbar degenerative disc disease lumbar spondylosis with lumbar facet arthropathy, and left sacroiliitis Patient could benefit from lumbar epidural steroid injection under fluoroscopy guidance, the L4 5 level (left paramedian approach ) PQRS Measure Charge Sheet Measure #130: Documentation of Current Meds in Medical Chart: Patient's medications documented in chart Measure #226: Tobacco Use: Screen & Cessation Intervention: Pt screened for tobacco use AND intervention given Measure #111: Pneumonia Vaccination: Pneumococcal vaccine NOT administered or previously given Measure #47: Advance Care Plan: Advance care planning discussed & documented, pt chose/unable to give Measure #412: Opioid Treatment Agreement: No documentation of signed opioid treatment agreement Measure #408: Opioid Therapy Follow-up Evaluation: Patient had NO f/u eval minimum every 3 months during opioid therapy Measure #317: Preventitive Care & Scrn High Bld Press & F/U: Pre-hypertensive or hypertensive BP documented, pt will f/u with PCP Measure #128: Body Mass Index (BMI) Screening & Follow-up: BMI documented ABOVE normal parameters - f/u documented Measure #131: Pain Assessment & Follow-up: Pain positive & plan documented, Follow-up scheduled Measure #431: Unhealthy Alcohol Use Preventative Care & Scrn: Patient not identified as an unhealthy alcohol user PQRS Narrative: Objective - Vital Signs Vital signs: Vital Signs Temp Pulse 94 03/20/19 13:41 Resp 18 03/20/19 13:41 BP 137/91 03/20/19 13:41 Pulse Ox 96 03/20/19 13:41 Intake & Output 03/19/19 03/20/19 03/20/19 18:59 06:59 18:59 Weight 103.873 kg
== END | disposition home or self-care (01) ==
LOC: PNWHC3 12:50
PROVIDERS: ATTEND Specialist
DX: G89.29 Other chronic pain (principal); M51.36 Other intervertebral disc degeneration, lumbar region; M47.816 Spondylosis without myelopathy or radiculopathy, lumbar region; M46.1 Sacroiliitis, not elsewhere classified; Z98.890 Other specified postprocedural states
CPT/HCPCS: 99211

== ENCOUNTER → 2019-03-31 | Day surgery (SDC) | payer OTHER ==
[2019-03-27 14:49] VITALS: BMI 40.4
[~2019-03-31] MED LIST changes: +IV FLUID CONTINUATION 1,000 ML IV ONE; +LACTATED RINGERS 1,000 ML IV ONE; +LIDOCAINE 1% 20 ML VIAL (10MG/ML) FOR IV START SQ ONE
[2019-03-31 06:47] VITALS: RESP 16; TEMP 97.5
[2019-03-31 06:48] LABS: Glucose,Whole Blood 118 mg/dL (75-99)
--- NOTE | 2019-03-31 07:21 | P.PCN ---
Date of Procedure: 03/31/19 Procedure(s) Performed: PREOPERATIVE DIAGNOSIS: 1- Lumbar Degenerative Disc Diseases 2-Lumbar spondylosis with Facet arthropathy without myelopathy. 3-left sacroiliitis POSTOPERATIVE DIAGNOSIS: 1-Lumber Degenerative Disc Diseases 2-Lumbar spondylosis with Facet arthropathy without myelopathy. 3-left sacroiliitis PROCEDURE 1. Lumbar epidural steroid injection under fluoroscopic guidance at the L4-5 level (left paramedian approach ). (Fluoroscopy imaging was available in radiology department) 2. Lumbar epidurogram. ANESTHESIA: Local with 1% lidocaine 3 ml and , moderate sedation with intravenous Versed 2 mg ,and fentanyle 50 Mcg EBL: Minimal PROCEDURE INDICATION: The patient with low back pain and radiculitis symptoms unresponsive to conservative treatment. Fluoroscopy was used to optimize visualization of the needle placement and to maximize safety. PROCEDURE DESCRIPTION / TECHNIQUE: The patient was seen and identified in the preoperative area. Risks, benefits, complications including but not limited to infections ,bleeding ,allergic reaction to the medications ,nerve damage and not complete pain releife , and alternatives were discussed with the patient. The patient agreed to proceed with the procedure and signed the consent. IV was started, and vital signs were stable. Patient was taken to the OR and time out was completed. The patient was placed in the prone position on procedure table and a pillow was placed under the abdomen to reduce lumbar lordosis. The lumbosacral area was prepped and draped in the usual sterile fashion.ere closely monitored during the procedure. Conscious sedation was used during the procedure to decrease patients anxiety. Vital signs was monitered during the entire procedure. Using anterior-posterior fluoroscopy, the L4-5 interlaminar space was identified and the skin over this site was marked and then infiltrated with 1% lidocaine subcutaneously. Subsequently, a 18-gauge 6 inches long Tuohy epidural needle was inserted and advanced toward the epidural space using the ``Loss of resistance technique and guided by AP and lateral fluoroscopy. The correct needle position in the epidural space was verified with the injection of 2 mL of the water soluble contrast dye Isovue 200 contrast and observing an excellent epidurogram with the epidural spread of the dye, after negative aspiration for blood and CSF and in the absence of paresthesias. Again after negative aspiration, a 6 ml mixture containing 40 mg of Depo-medrol , and 2 ml of preservative free Normal Saline, and 2 ml of preservative free lidocaine 1% solution was injected and a washout of epidurogram was seen. Needle was withdrawn intact, skin was cleansed, and bandages were applied. COMPLICATIONS: None DISPOSITION / PLANS: The patient was placed in a supine position and transferred to the recovery area in a stable condition for observation. There was no evidence of lower extremity motor or sensory deficit after the procedure. Patient was discharged from the recovery room after meeting discharge criteria. Home discharge instructions were given to the patient by the staff. The patient was reexamined prior to discharge. The patient will schedule a follow up in the clinic in 2-4 weeks.
[2019-03-31 07:43] VITALS: BP 135/80; PULSE 94
--- NOTE | 2019-03-31 12:35 | FL ---
Fluoroscopy HISTORY: Pain 6 seconds fluoroscopy time supplied to the referring clinician. 2 intraoperative C-arm images docume nt the procedure. See dictated report from anesthesia.
== END ==
LOC: ORPAIN 06:11
PROVIDERS: ATTEND Specialist
DX: M47.26 Other spondylosis with radiculopathy, lumbar region (principal); M51.16 Intervertebral disc disorders with radiculopathy, lumbar region; M46.1 Sacroiliitis, not elsewhere classified; E11.9 Type 2 diabetes mellitus without complications
CPT/HCPCS: 81025; 62323; J2250; J1030; J3010; Q9966

== ENCOUNTER → 2019-04-14 | Outpatient (CLI) | payer OTHER ==
[2019-04-14 13:09] VITALS: BP 161/93; PULSE 91; RESP 16
--- NOTE | 2019-04-14 13:44 | P.PN ---
Subjective Progress Note Date: 04/14/19 This is a 49-year-old morbidly obese lady with history of chronic lower back pain with radiation to the left lower extremity. The patient had lumbar epidural steroid injection in the interlaminar approach last time which gave her a few days of pain relief however the pain came back shortly after the proce dure. Her pain gets worse by activities and by extending her leg as she states. It radiates down the left leg down to the posterior part of her thigh. The patient failed to respond to physical therapy. She has been on tramadol for many years. Patient denies new-onset weakness, bowel/bladder incontinence, or any other signs or symptoms of cauda equina syndrome. There are no signs of acute intoxication, and no indications of medication diversion or overuse. In addition to above, 13-point review of systems is also negative for chest pain, shortness of breath, changes in vision, changes in hearing, new onset weakness, abdominal pain, diarrhea, extreme fatigue, malaise, fever, skin changes, homicidal or suicidal ideation, or bowel or bladder incontinence. Vital Signs: Reviewed in EMR Gen: AAOx3, NAD HEENT: PERRLA,hearing grossly normal Pulm: resp unlabored Heart: Regular Neck: supple, trachea midline Neuro exam of the lower extremities: Absent deep tendon reflexes and decreased muscle strength to 4 out of 5 bilaterally Straight leg raising test: Positive on the left side Delbert's test: Range of motion of the lumbar spine: Facet loading test: Tenderness in the paravertebral musculature: Positive tenderness in the lumbar paravertebral musculature Neuro: CN II-XII grossly intact, Imaging: Reviewed in EMR/chart Assessment: Left lumbar radiculopathy Obesity Tobacco abuse Plan: 1. Explanation: Opioid and psychological risk scores were reviewed. Diagnoses, prognoses, and multiple treatment options including but not limited to physical therapy, interventional therapies, adjuvant medical therapies, narcotic medication therapies, and surgery were discussed with the patient and all questions were answered to the patient's satisfaction. 2. Opioid agreement: Signed with the patient and the patient is warned not to use opioids while driving or before driving and not to combine opioids with benzodiazepines or alcohol. 3. Counseling: The patient was counseled extensively on SMOKING CESSATION, BODY MASS INDEX, EXERCISE. Specifically, the patient was instructed regarding the importance of smoking cessation, obesity, and exercise in the context of both chronic pain and overall health. 4. Procedures: Scheduled for transforaminal epidural steroid injection on the left side under fluoroscopic guidance at the L4 5 level 5. Consultations: None 6. Investigations: None 7. Medications: Continue tramadol as needed. The patient gets prescription for tramadol from her primary care physician. 8. Disposition: Return to the above-mentioned procedure as soon as possible 9. Maps were reviewed and were appropriate. Objective - Vital Signs Vital signs: Vital Signs Temp Pulse 91 04/14/19 13:03 Resp 16 04/14/19 13:03 BP 161/93 04/14/19 13:03 Pulse Ox 96 04/14/19 13:03
== END | disposition home or self-care (01) ==
LOC: PNWHC3 12:38
PROVIDERS: ATTEND Anesthesiology
DX: G89.29 Other chronic pain (principal); M54.16 Radiculopathy, lumbar region; E66.9 Obesity, unspecified; Z68.41 Body mass index [BMI] 40.0-44.9, adult; Z72.0 Tobacco use; Z79.891 Long term (current) use of opiate analgesic
CPT/HCPCS: 99211

== ENCOUNTER 2019-04-22 06:09 | Day surgery (SDC) | payer OTHER ==
[2019-04-21 11:44] VITALS: BMI 41.4
[~2019-04-22 06:09] MED LIST changes: -IV FLUID CONTINUATION 1,000 ML IV ONE; -LACTATED RINGERS 1,000 ML IV ONE; -LIDOCAINE 1% 20 ML VIAL (10MG/ML) FOR IV START SQ ONE
[2019-04-22 06:30] VITALS: RESP 16; TEMP 97.2
[2019-04-22 06:38] LABS: Glucose,Whole Blood 129 mg/dL (75-99)
[2019-04-22] MEDS ORDERED: LIDOCAINE 1% 20 ML VIAL (10MG/ML) FOR IV START INTRADERMA ONE (06:38)
--- NOTE | 2019-04-22 07:20 | P.PCN ---
Date of Procedure: 04/22/19 Procedure(s) Performed: PREOPERATIVE DIAGNOSIS: Lumbar radiculopathy POSTOPERATIVE DIAGNOSIS: Lumbar radiculopathy Attending physician: Juanjo Peter M.D. PROCEDURE 1. Transforaminal epidural steroid injection under fluoroscopic guidance L4-5 level, left side 2. Lumbar epidurogram ANESTHESIA: Local with 1% lidocaine 3 ml ; IV sedation with Versed and fentanyl , sedation time 10 minutes PROCEDURE INDICATION: The patient with low back pain and radiculopathy symptoms unresponsive to conservative treatment. Fluoroscopy was used for the procedure and fluoroscopic images were saved to the radiology portion of patient's chart. PROCEDURE DESCRIPTION / TECHNIQUE: The patient was seen and identified in the preoperative area. Risks, benefits, complications, and alternatives were discussed with the patient. The patient agreed to proceed with the procedure and signed the consent. IV was started, and vital signs were stable. Patient was taken to the OR and time out was completed. The patient was placed in the prone position on procedure table and a pillow was placed under the abdomen to reduce lumbar lordosis. The lumbosacral area was prepped and draped in the usual sterile fashion. Vital signs were closely monitored during the procedure. Conscious sedation was used. Using oblique fluoroscopy, the chin of the ``Enrike dog and the skin and deeper tissues just below was localized with 1% lidocaine. Subsequently, a 22- gauge 5-inch spinal needle was advanced under a tunneled view fluoroscopic guidance just underneath the chin of the ``Enrike dog . Under lateral fluoroscopy, the needle was then advanced to the posterior border of the foramen. After negative aspiration of CSF and blood and with no paresthesias, 1 mL of Isovue-200 contrast dye was injected under live fluoroscopy and there was no evidence of intravascular injection. The injectate solution consisting of 10 mg of dexamethasone with 1 mL of 1% lidocaine was then delivered. The needle was withdrawn intact. At the end of the procedure, skin was cleansed, and bandages were applied. COMPLICATIONS: None COMMENTS: DISPOSITION / PLANS: The patient was placed in a supine position and transferred to the recovery area in a stable condition for observation. There was no evidence of lower extremity motor or sensory deficit after the procedure. Patient was discharged from the recovery room after meeting discharge criteria. Home discharge instructions were given to the patient by the staff. The patient will follow up in clinic in 2-4 weeks.
[2019-04-22] MEDS ORDERED: IV FLUID CONTINUATION 600 ML IV ONE (07:23)
[2019-04-22 07:39] VITALS: BP 135/86; PULSE 89
--- NOTE | 2019-04-22 08:42 | FL ---
EXAMINATION TYPE: FL guided pain mgmt statistic DATE OF EXAM: 04/22/2019 HISTORY: Flouroscopy time 6 seconds of fluoroscopy provided. IMPRESSION: 1. Fluoroscopy time.
== END 2019-04-22 07:52 | disposition home or self-care (01) ==
LOC: ORPAIN 06:09
PROVIDERS: ATTEND Anesthesiology
DX: G89.29 Other chronic pain (principal); M54.16 Radiculopathy, lumbar region; E66.01 Morbid (severe) obesity due to excess calories; Z68.39 Body mass index [BMI] 39.0-39.9, adult; Z72.0 Tobacco use
CPT/HCPCS: 81025; 64483; J2250; J1100; J3010; Q9966; 99152

== ENCOUNTER → 2019-05-19 | Outpatient (CLI) | payer OTHER ==
[2019-05-19 11:01] VITALS: BP 160/96; PULSE 85; RESP 16
--- NOTE | 2019-05-19 13:22 | P.PN ---
Subjective Progress Note Date: 05/19/19 This is a follow-up visit for this 48 year old female, with a chronic history of severe low back pain, radiation to the left buttock, she is diagnosed with lumbar spondylosis with lumbar facet arthropathy, lumbar radiculopathy, and sacroiliitis, recently we have done a left-sided transforaminal epidural steroid injections under fluoroscopy guidance, she reported that her pain improved significantly , she denies any motor or sensory deficit she denies any fever or night sweats under is no change in bowel movement or urination, she is able to ambulate without difficulty and she is able to do activity of daily livings without any difficulty, Johanne to use tramadol and Flexeril when necessary Objective - Vital Signs Vital signs: Vital Signs Temp Pulse 85 05/19/19 10:57 Resp 16 05/19/19 10:57 BP 160/96 05/19/19 10:57 Pulse Ox 96 05/19/19 10:57 - Exam Physical Examinations : -Constitutiona : Cooperative , not in acute distress . -HEENT : nech : supple , no Lymphadenopathy , normal thyroid size . : eyes : no ptosis , no icterus, no photophobia . - neurologic : Cranial nerve II to XII intact , no focal neurological deffecit . -psychatric : alert , oriented X 3 , appropriate affect , intact judgment and insight . -Lymphatic : no Lymphadenopathy . - musculoskeltal : Lumber spine moter stegnth lower extremities ,thigh and legs 5/5 Right side , 5/5 Left side ft . Assessment and Plan Plan: Assessment and plan= lumbar spondylosis with lumbar facet arthropathy, lumbar radiculopathy, sacroiliitis Pain improved after transforaminal epidural steroid injections. She will follow up with the pain clinic when necessary. she continue to use Ultram 50 mg when necessary and Flexeril 10 mg when necessary she is getting prescriptions refilled from PCP. - PQRS measures = - Patient's medications are documented in the chart. -Tobacco use is positive, and counseling.Given. -Patient's has not received pneumococcal vaccine. -Advanced care planning discussed, patient not eligible. -Opiate contract not signed. -Pain negative and follow-up when necessary -Patient's blood pressure measured [160/96 ] , and documented in the record ,and patient will follow up with the primary care. -Patient's weight was measured and body mass index [ 41.1 ] above the normal limits and counseling was done. and patient instructed to follow-up with the primary care physician. -Patient was not identified as an unhealthy alcohol user Time with Patient: Less than 30
== END | disposition home or self-care (01) ==
LOC: PNWHC3 10:46
PROVIDERS: ATTEND Specialist
DX: M47.26 Other spondylosis with radiculopathy, lumbar region (principal); M46.96 Unspecified inflammatory spondylopathy, lumbar region; M46.1 Sacroiliitis, not elsewhere classified; Z79.899 Other long term (current) drug therapy
CPT/HCPCS: 99211

== ENCOUNTER → 2019-05-20 | Outpatient (CLI) | payer OTHER ==
[2019-05-20 15:23] VITALS: BP 153/92; PULSE 98; RESP 18; TEMP 98; BMI 41.3
--- NOTE | 2019-05-20 17:41 | P.HPOB ---
History of Present Illness H&P Date: 05/20/19 Chief Complaint: The patient is here for her routine gynecologic exam and ma mmogram. This is a 49-year-old with an LMP of 04/28/2019. The patient is status post tubal ligation. The patient denies any problems regarding the left labial cyst. She denies any significant pain, but thinks it may have gotten slightly larger. She had seen Dr. Souza last year for possible removal. They decided to conservatively manage it and consider removal if other gynecologic pr ocedures are needed. She was treated with Lysteda for her heavy menstrual periods and she states this was helpful. Her prescription ran out a few months ago and states her menstrual periods continue to be less heavy and seems to be happy with not needing the medication anymore. She had a small amount of reddish discharge between her menstrual periods last month and this is the first time that this has happened. Review of Systems The patient has lost 9 pounds over the last year. She denies respiratory, cardiac, or G.I. problems. Past Medical History Past Medical History: COPD, Diabetes Mellitus, GERD/Reflux, Hypertension, Sleep Apnea/CPAP/BIPAP Additional Past Medical History / Comment(s): Type 2 diabetes. 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 She has had a left labial cyst since 1989. History of Any Multi-Drug Resistant Organisms: None Reported Past Surgical History: Orthopedic Surgery, Tubal Ligation Additional Past Surgical History / Comment(s): Left ACL, medial meniscus repair. Right knee - medial meniscus repair. Right wrist fracture - surgical repair.RIGHT RING FINGER. PAIN CLINIC PROCEDURES Past Anesthesia/Blood Transfusion Reactions: No Reported Reaction Past Psychological History: Anxiety, Depression, Panic Disorder Smoking Status: Current every day smoker (4 cigarettes per day) Past Alcohol Use History: Occasional (3-4 per week) Additional Past Alcohol Use History / Comment(s): STARTED SMOKING AT AGE 17. Past Drug Use History: None Reported Additional History: She is . She has been with her boyfriend since November 2017. She does not work outside of the home. - Past Family History Mother Family Medical History: Cancer Additional Family Medical History / Comment(s): UTERINE AND BREAST CANCER, Medications and Allergies Home Medications Medication Instructions Recorded Confirmed Type Oxybutynin Chloride [Ditropan] 5 mg PO HS 05/27/15 05/20/19 History FLUoxetine HCL [PROzac] 20 mg PO DAILY 02/15/16 05/20/19 History Omeprazole 20 mg PO DAILY 03/05/17 05/20/19 History ALPRAZolam [Xanax] 0.5 mg PO BID 10/10/17 05/20/19 History Albuterol Inhaler [Ventolin Hfa 1 - 2 puff INHALATION Q6HR PRN 10/10/17 05/20/19 History Inhaler] traMADol HCL [Ultram] 50 mg PO TID 11/22/17 05/20/19 History Hydrochlorothiazide 50 mg PO DAILY 01/21/18 05/20/19 History metFORMIN HCL [metFORMIN HCL ER] 500 mg PO DAILY 02/25/18 05/20/19 History Beclomethasone Dip 80 Mcg/Puff 2 puff PO BID 09/16/18 05/20/19 History [Qvar 80 mcg] Cyclobenzaprine [Flexeril] 5 mg PO HS PRN 03/27/19 05/20/19 History Allergies Allergy/AdvReac Type Severity Reaction Status Date / Time No Known Allergies Allergy Verified 05/19/19 10:54 Exam Vital Signs Temp Pulse Resp BP Pulse Ox 05/20/19 15:19 98.0 F 98 18 153/92 97 Height 5 feet 3 inches, weight 233 pounds, BMI 41. This is a well-developed well-nourished heavyset white female who is alert and oriented times 3 in no acute distress. HEENT: Within normal limits. NECK: Supple without mass or thyromegaly. CHEST AND LUNGS: Clear to auscultation. HEART: Regular rate and rhythm. BREASTS: Are without mass or discharge. AXILLARY EXAM: Negative for adenopathy. BACK: Negative for CVA tenderness. ABDOMEN: Soft, obese, nontender, without palpable masses. PELVIC EXAM: External genitalia reveals a 2.0 x 2.0 cm left labia minora cyst which is soft and nontender. This is fairly stable from her previous exam. There is a small left labia majora inclusion cyst which is approximately 3 mm in size. This is not visible on inspection but palpable. Cervix and vagina appear normal, the cervix is anterior. There is no unusual discharge. There is no evidence of prolapse. The uterus is midposition, 8-10week size and nontender. There are no palpable adnexal masses or tenderness. RECTAL EXAM: negative for mass or tenderness and is negative for occult blood. EXTREMITIES: Nontender. IMPRESSION: 1. 49-year-old female with stable left labia minora cyst which has been followed conservatively. 2. History of hypermenorrhea improved with Lysteda. The menstrual periods remain improved after she discontinued it a few months ago. 3. History of fibroid uterus with 5.2 cm fundal fibroid by ultrasound last year. The uterus remains stable in size on today's exam. PLAN: 1. Pap smear was deferred since she had a normal one on 01/18/2018. 2. Self breast awareness was discussed with the patient. 3. Screening mammogram will be done today. 4. The patient will continue to keep a menstrual calendar and call if she is having menstrual problems. 5. She will continue to observe the left labial cyst which she has had years. She will call if she is having problems or changes with it. I have reassured her about the very small left labia majora inclusion cyst which she noticed herself. She was instructed to keep an eye on this and call if it is increasing in size or causing problems. 6. She was advised to return in one year for her annual well woman exam.
--- NOTE | 2019-05-21 09:07 | MM ---
Reason for exam: screening (asymptomatic). Last mammogram was performed 1 year and 3 months ago. History: Family history of breast cancer in mother at age 61. Physical Findings: A clinical breast exam by your physician is recommended on an annual basis and results should be correlated with mammographic findings. MG Screening Mammo w CAD Bilateral CC and MLO view(s) were taken. Prior study comparison: February 20, 2018, right breast MG work up mamm w CAD RT. February 05, 2018, bilateral MG screening mammo w CAD. The breast tissue is heterogeneously dense. This may lower the sensitivity of mammography. Benign appearing bilateral calcifications. No suspicious abnormality. Stable left lateral asymmetry at posterior depth back to 2017. No significant changes when compared with prior studies. ASSESSMENT: Benign, BI-RAD 2 RECOMMENDATION: Routine screening mammogram of both breasts in 1 year.
== END | disposition home or self-care (01) ==
LOC: WWCWWP 15:12
PROVIDERS: ATTEND Obstetrics & Gynecology
DX: Z12.31 Encounter for screening mammogram for malignant neoplasm of breast (principal)
CPT/HCPCS: 77067

== ENCOUNTER → 2019-08-06 | Outpatient (CLI) | payer OTHER ==
[2019-08-06 12:02] VITALS: BP 136/86; PULSE 93; RESP 16
--- NOTE | 2019-08-06 12:34 | P.PAINPG ---
Subjective Progress Note Date: 08/06/19 this is follow visit for this 49 years old female with a chronic history of severe low back pain she is diagnosed with lumbar radiculopathy, lumbar spondylosis with lumbar facet arthropathy, and sacroiliitis, April 2019 and we have been left-sided transforaminal epidural steroid injection, which helped her radicular pain treated tremendously, and January 2019 we have done RFA of the left sacroiliac joint, and she had a good result with the procedure, currently she is complaining of severe low back pain and also she has some numbness and tingling and pain in the left lower extremity, she continued to use pain medication 50 mg 3 times a day and Flexeril 5 mg daily at bedtime she denies any side effects of the medication sheet getting the prescription refill from primary care, she denies any motor or sensory deficits denies any fever or numbness but she denies any change in bowel movements or urination. Objective - Vital Signs Vital signs: Vital Signs Temp Pulse 93 08/06/19 11:56 Resp 16 08/06/19 11:56 BP 136/86 08/06/19 11:56 Pulse Ox 97 08/06/19 11:56 Intake & Output 08/05/19 08/06/19 08/06/19 18:59 06:59 18:59 Weight 108.862 kg - Exam Physical Examinations : -Constitutiona : Cooperative , not in acute distress . -HEENT : nech : supple , no Lymphadenopathy , normal thyroid size . : eyes : no ptosis , no icterus, no photophobia . . - neurologic : Cranial nerve II to XII intact , no focal neurological deffecit . -psychatric : alert , oriented X 3 , appropriate affect , intact judgment and insight . -Lymphatic : no Lymphadenopathy . - musculoskeltal : Lumber spine moter stegnth lower extremities ,thigh and legs 5/5 Right side , 5/5 Left side deep tendon reflexes : normal Knee Jerk , normal ankle Jerk lumber facet Loading Test =positive Right , positive Left Range of motion of the lumbar spine Flexion 30 degrees, extension 10 degrees strait leg raising test = positive at 30 degree on the left side ,and is negative on the right Fabere test= positive Right , and positive LT . Sever tenderness over the Sacroiliac joint on the Right , and Left sides Gaenslen test= positive right ,and positive left . Seated flexion test= positive right ,and positive Left . Assessment and Plan Plan: Assessment and plan= Lumbar radiculopathy , lumbar spondylosis with lumbar facet arthropathy . Bilateral sacroiliitis Patient could benefit from a left-sided transforaminal epidural steroid injection at L4 5. During the procedure for 1 time and should reevaluate, after that to see if she was being candidate for medial branch block versus sacroiliac joint steroid injection, treatment plan discussed with the patient and she agreed with the procedure. She will continue to use her pain medication Ultram 50 mg 3 times a day and Flexeril 5 mg daily at bedtime as prescribed by her primary care Time with Patient: Less than 30 PQRS Measure Charge Sheet Measure #130: Documentation of Current Meds in Medical Chart: Patient's medications documented in chart Measure #226: Tobacco Use: Screen & Cessation Intervention: Pt screened for tobacco use AND intervention given Measure #111: Pneumonia Vaccination: Pneumococcal vaccine NOT administered or previously given Measure #47: Advance Care Plan: Advance care planning discussed & documented, pt chose/unable to give Measure #412: Opioid Treatment Agreement: No documentation of signed opioid treatment agreement Measure #408: Opioid Therapy Follow-up Evaluation: Patient had NO f/u eval minimum every 3 months during opioid therapy Measure #317: Preventitive Care & Scrn High Bld Press & F/U: Normal blood pressure, f/u not required Measure #128: Body Mass Index (BMI) Screening & Follow-up: BMI documented ABOVE normal parameters - f/u documented Measure #131: Pain Assessment & Follow-up: Pain positive & plan documented, Follow-up scheduled Measure #431: Unhealthy Alcohol Use Preventative Care & Scrn: Patient not identified as an unhealthy alcohol user PQRS Narrative: Smoking Status Current every day smoker Blood Pressure 136/86 Pain Intensity [Lower Back] 5 Scale Used Numeric (1 - 10) Hx Alcohol Use (MH) Yes: OCCASIONAL Home Medications: Ambulatory Orders Oxybutynin Chloride [Ditropan] 5 mg PO HS 05/27/15 FLUoxetine HCL [PROzac] 20 mg PO DAILY 02/15/16 Omeprazole 20 mg PO DAILY 03/05/17 ALPRAZolam [Xanax] 0.5 mg PO BID 10/10/17 Albuterol Inhaler [Ventolin Hfa Inhaler] 1 - 2 puff INHALATION Q6HR PRN 10/10/17 traMADol HCL [Ultram] 50 mg PO TID 11/22/17 Hydrochlorothiazide 50 mg PO DAILY 01/21/18 metFORMIN HCL [metFORMIN HCL ER] 500 mg PO DAILY 02/25/18 Beclomethasone Dip 80 Mcg/Puff [Qvar 80 mcg] 2 puff PO BID 09/16/18 Cyclobenzaprine [Flexeril] 5 mg PO HS PRN 03/27/19 Controlled Substance Measures - Controlled Substance Measures Is patient prescribed a controlled substance at discharge?: No
== END | disposition home or self-care (01) ==
LOC: PNWHC3 11:50
PROVIDERS: ATTEND Specialist
DX: G89.29 Other chronic pain (principal); M47.26 Other spondylosis with radiculopathy, lumbar region; M46.96 Unspecified inflammatory spondylopathy, lumbar region; M46.1 Sacroiliitis, not elsewhere classified; F17.200 Nicotine dependence, unspecified, uncomplicated; Z79.84 Long term (current) use of oral hypoglycemic drugs; Z79.891 Long term (current) use of opiate analgesic; Z79.899 Other long term (current) drug therapy
CPT/HCPCS: 99211

== ENCOUNTER 2019-12-10 17:01 | Emergency (ER) | payer OTHER ==
[2019-12-10 17:06] VITALS: RESP 18; TEMP 98.3
--- NOTE | 2019-12-10 17:38 | ED ---
URI HPI - General Chief Complaint: Upper Respiratory Infection Stated Complaint: cough/SOB/shoulder pain Time Seen by Provider: 12/10/19 17:15 Source: patient Mode of arrival: ambulatory Limitations: no limitations - History of Present Illness Initial Comments: Patient is a 49-year-old female, with history of asthma, COPD, presenting to emergency Department with a cough 2 weeks. Patient admits to being an every day smoker as well. She states his cough has been ongoing and she is concerned because is not going away. She states it's not getting worse just simply not going away. She denies any fever, chills, chest pain. She does admit to mild shortness of breath with exertion however states she states this is normal for her as she is a smoker. She denies any abdominal complaints, urinary complaints. Patient also has a second complaint of left shoulder pain. She states approximately 1-1/2 weeks ago she was on the floor and attempted to get up when her left hand slipped and she twisted her left shoulder. She states the pain is in the frontal shoulder and prevents her from putting her left arm behind her back or over her head. She denies any previous surgeries or injuries to her left shoulder. She denies any numbness and tingling into her left hand. She has no further complaints. Upon arrival to the ER, her vitals are stable. - Related Data Home Medications Medication Instructions Recorded Confirmed Oxybutynin Chloride [Ditropan] 5 mg PO HS 05/27/15 08/22/19 FLUoxetine HCL [PROzac] 20 mg PO QAM 02/15/16 08/22/19 Omeprazole 20 mg PO QAM 03/05/17 08/22/19 ALPRAZolam [Xanax] 0.5 mg PO BID 10/10/17 08/22/19 Albuterol Inhaler (Mhu) [Ventolin 1 - 2 puff INHALATION Q6HR PRN 10/10/17 08/26/19 Hfa Inhaler] traMADol HCL [Ultram] 50 mg PO TID 11/22/17 08/22/19 Hydrochlorothiazide 50 mg PO QAM 01/21/18 08/22/19 metFORMIN HCL [metFORMIN HCL ER] 500 mg PO QAM 02/25/18 08/22/19 Beclomethasone Dip 80 Mcg/Puff 2 puff PO BID 09/16/18 08/22/19 [Qvar 80 mcg] Cyclobenzaprine [Flexeril] 5 mg PO HS PRN 03/27/19 08/22/19 Previous Rx's Medication Instructions Recorded Benzonatate [Tessalon Perles] 100 mg PO TID PRN #20 capsule 12/10/19 methylPREDNISolone [Medrol Dose 4 mg PO DIRECTED #1 pack 12/10/19 Pack] Allergies Allergy/AdvReac Type Severity Reaction Status Date / Time No Known Allergies Allergy Verified 12/10/19 17:06 Review of Systems ROS Statement: Those systems with pertinent positive or pertinent negative responses have been documented in the HPI. ROS Other: All systems not noted in ROS Statement are negative. Past Medical History Past Medical History: COPD, Diabetes Mellitus, GERD/Reflux, Hypertension, Sleep Apnea/CPAP/BIPAP Additional Past Medical History / Comment(s): Type 2 diabetes. 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 She has had a left labial cyst since 1989. History of Any Multi-Drug Resistant Organisms: None Reported Past Surgical History: Orthopedic Surgery, Tubal Ligation Additional Past Surgical History / Comment(s): Left ACL, medial meniscus repair. Right knee - medial meniscus repair. Right wrist fracture - surgical repair.RIGHT RING FINGER. PAIN CLINIC PROCEDURES Past Anesthesia/Blood Transfusion Reactions: No Reported Reaction Past Psychological History: Anxiety, Depression, Panic Disorder Smoking Status: Current every day smoker Past Alcohol Use History: None Reported Past Drug Use History: None Reported - Past Family History Mother Family Medical History: Cancer Additional Family Medical History / Comment(s): UTERINE AND BREAST CANCER, General Exam - General Exam Comments Initial Comments: GENERAL: Well-appearing, well-nourished and in no acute distress. HEAD: Atraumatic, normocephalic. EYES: Pupils equal round and reactive to light, extraocular movements intact, sclera anicteric, conjunctiva are normal. ENT: TMs normal, nares patent, oropharynx clear without exudates. Moist mucous membranes. NECK: Normal range of motion, supple without lymphadenopathy or JVD. LUNGS: Breath sounds clear to auscultation bilaterally and equal. No wheezes rales or rhonchi. Deep, coarse cough. HEART: Regular rate and rhythm without murmurs, rubs or gallops. ABDOMEN: Soft, nontender, normoactive bowel sounds. No guarding, no rebound. No masses appreciated. : Deferred EXTREMITIES: Left shoulder pain with palpation in the anterior aspect. Pain with empty can and bicipital resistance. Normal flexion, extension. Pain with external and internal rotation. No pitting or edema. No clubbing or cyanosis. NEUROLOGICAL: Normal speech, normal gait. PSYCH: Normal mood, normal affect. SKIN: Warm, Dry, normal turgor, no rashes or lesions noted. Limitations: no limitations Course Vital Signs 12/10/19 17:02 Temperature 98.3 F Pulse Rate 98 Respiratory 18 Rate Blood Pressure 157/90 O2 Sat by Pulse 96 Oximetry Medical Decision Making - Medical Decision Making Patient is a 49-year-old female, with history COPD, asthma, every day smoker, presenting with a cough 2 weeks, as well as left shoulder pain 1.5 weeks. Vitals are stable. No red flag symptoms. Left shoulder is most likely a sprain, strain. X-ray of the chest reveals no acute process. I discussed with patient her symptoms are most likely bronchitis. Patient will be given dose of steroids in the ER and will be continued with a steroid Dosepak to start tomorrow. She also be given a cough medicine. She does have an albuterol inhaler at home that she will continue to use. She is in agreement with this plan of care. Return parameters were discussed with the patient she verbalized understanding. Case discussed with Dr. Garcia. Disposition Clinical Impression: Left shoulder pain, Bronchitis Disposition: HOME SELF-CARE Condition: Stable Instructions (If sedation given, give patient instructions): Acute Bronchitis (ED) Additional Instructions: Please return to the Emergency Department if symptoms worsen or any other concerns. Take steroids as prescribed. Continue to use cough syrup (Delsym) as needed as well as albuterol inhaler. May use heat and/or ice to the left shoulder as well as ibuprofen. Follow up with PCP. Prescriptions: methylPREDNISolone [Medrol Dose Pack] 4 mg PO DIRECTED #1 pack Benzonatate [Tessalon Perles] 100 mg PO TID PRN #20 capsule PRN Reason: Cough Is patient prescribed a controlled substance at d/c from ED?: No Referrals: Sundeep Sinclair MD [Primary Care Provider] - 1-2 days
--- NOTE | 2019-12-10 17:48 | XR ---
EXAMINATION TYPE: XR chest 2V DATE OF EXAM: 12/10/2019 COMPARISON: Chest x-ray June 20, 2010. HISTORY: History of COPD and asthma with cough for 2 weeks. TECHNIQUE: Frontal and lateral views of the chest are obtained. FINDINGS: There is no focal air space opacity, pleural effusion, or pneumothorax seen. The cardiac silhouette size is within normal limits. The osseous structures are intact. IMPRESSION: No suspicious acute pulmonary process. No significant change from prior.
[2019-12-10] MEDS ORDERED: methylPREDNISolone SOD SUCCI 125 MG/2 ML VIAL IM ONE (18:04)
[2019-12-10 18:42] VITALS: BP 141/95; PULSE 85
== END 2019-12-10 18:42 | disposition home or self-care (01) ==
LOC: EC 17:01
DX: J40 Bronchitis, not specified as acute or chronic (principal); M25.512 Pain in left shoulder; J44.9 Chronic obstructive pulmonary disease, unspecified; E11.9 Type 2 diabetes mellitus without complications; K21.9 Gastro-esophageal reflux disease without esophagitis; F17.200 Nicotine dependence, unspecified, uncomplicated; I10 Essential (primary) hypertension; F41.0 Panic disorder [episodic paroxysmal anxiety]; F41.9 Anxiety disorder, unspecified; F32.9 Major depressive disorder, single episode, unspecified; G47.30 Sleep apnea, unspecified; Z99.89 Dependence on other enabling machines and devices; Z79.51 Long term (current) use of inhaled steroids; Z79.84 Long term (current) use of oral hypoglycemic drugs; Z79.899 Other long term (current) drug therapy
CPT/HCPCS: 71046; 96372; 99284; J2930

== ENCOUNTER → 2020-04-05 | Outpatient (CLI) | payer OTHER ==
[2020-04-05 13:25] VITALS: BP 143/89; PULSE 77; RESP 14; TEMP 98.3
--- NOTE | 2020-04-05 13:32 | P.PAINPG ---
Subjective Progress Note Date: 04/05/20 this is follow visit for this 50 years old female with a chronic history of severe low back pain she is diagnosed with lumbar radiculopathy, lumbar spondylosis with lumbar facet arthropathy, and sacroiliitis, previously we have been left-sided transforaminal epidural steroid injection, which helped her r adicular pain treated tremendously, and she had a good result with the procedure, currently she is complaining of severe low back pain and also she has some numbness and tingling and pain in the left second toe only , she denies any motor or sensory deficit she denies any fever or night sweats. No change in the myelomata urination, and she reported that the numbness and tingling in the second toe is constant ., And she reported that the low back pain radiated to both sides , and to the buttock bilaterally Objective - Vital Signs Vital signs: Vital Signs Temp 98.3 F 04/05/20 13:15 Pulse 77 04/05/20 13:15 Resp 14 04/05/20 13:15 BP 143/89 04/05/20 13:15 Pulse Ox 94 L 04/05/20 13:15 Intake & Output 04/04/20 04/05/20 04/05/20 18:59 06:59 18:59 Weight 88.451 kg - Exam -Constitutiona : Cooperative , not in acute distress . -HEENT : nech : supple , no Lymphadenopathy , normal thyroid size . : eyes : no ptosis , no icterus, no photophobia . . - neurologic : Cranial nerve II to XII intact , no focal neurological deffecit . -psychatric : alert , oriented X 3 , appropriate affect , intact judgment and insight . -Lymphatic : no Lymphadenopathy . - musculoskeltal : Lumber spine moter stegnth lower extremities ,thigh and legs 5/5 Right side , 5/5 Left side deep tendon reflexes : normal Knee Jerk , normal ankle Jerk lumber facet Loading Test =positive Right , positive Left Range of motion of the lumbar spine Flexion 30 degrees, extension 10 degrees strait leg raising test = positive at 30 degree on the left side ,and is negative on the right Fabere test= positive Right , and positive LT . Sever tenderness over the Sacroiliac joint on the Right , and Left sides Gaenslen test= positive right ,and positive left . Seated flexion test= positive right ,and positive Left . Assessment and Plan Plan: Lumbar radiculopathy , lumbar spondylosis with lumbar facet arthropathy . Bilateral sacroiliitis Patient could benefit from lumbar epidural steroid injection at L4 5. She will continue to use her pain medication Ultram 50 mg 3 times a day and Flexeril 5 mg daily at bedtime as prescribed by her primary care If she continued to have numbness and tingling in the left second toe after the epidural steroid injection then we will order a nerve conduction study Time with Patient: Less than 30 PQRS Measure Charge Sheet Measure #130: Documentation of Current Meds in Medical Chart: Patient's medications documented in chart Measure #226: Tobacco Use: Screen & Cessation Intervention: Pt screened for tobacco use AND intervention given Measure #111: Pneumonia Vaccination: Pneumococcal vaccine NOT administered or previously given Measure #47: Advance Care Plan: Advance care planning discussed & documented, pt chose/unable to give Measure #412: Opioid Treatment Agreement: No documentation of signed opioid treatment agreement Measure #408: Opioid Therapy Follow-up Evaluation: Patient had NO f/u eval minimum every 3 months during opioid therapy Measure #317: Preventitive Care & Scrn High Bld Press & F/U: Pre-hypertensive or hypertensive BP documented, pt will f/u with PCP Measure #128: Body Mass Index (BMI) Screening & Follow-up: BMI documented ABOVE normal parameters - f/u documented Measure #131: Pain Assessment & Follow-up: Pain positive & plan documented, Follow-up scheduled Measure #431: Unhealthy Alcohol Use Preventative Care & Scrn: Patient not identified as an unhealthy alcohol user PQRS Narrative: Smoking Status Current every day smoker Blood Pressure 143/89 Pain Intensity [Bilateral 8 Lower Back] Scale Used Numeric (1 - 10) Hx Alcohol Use (MH) Yes: OCCASIONAL Home Medications: Ambulatory Orders Oxybutynin Chloride [Ditropan] 5 mg PO HS 05/27/15 FLUoxetine HCL [PROzac] 20 mg PO QAM 02/15/16 Omeprazole 20 mg PO QAM 03/05/17 ALPRAZolam [Xanax] 0.5 mg PO BID 10/10/17 Albuterol Inhaler (Mhu) [Ventolin Hfa Inhaler] 1 - 2 puff INHALATION Q6HR PRN 10/10/17 traMADol HCL [Ultram] 50 mg PO TID 11/22/17 hydroCHLOROthiazide 50 mg PO QAM 01/21/18 metFORMIN HCL [metFORMIN HCL ER] 500 mg PO QAM 02/25/18 Beclomethasone Dip 80 Mcg/Puff [Qvar 80 mcg] 2 puff PO BID 09/16/18 Cyclobenzaprine [Flexeril] 5 mg PO HS PRN 03/27/19 Benzonatate [Tessalon Perles] 100 mg PO TID PRN #20 capsule 12/10/19 methylPREDNISolone [Medrol Dose Pack] 4 mg PO DIRECTED #1 pack 12/10/19 Controlled Substance Measures - Controlled Substance Measures Is patient prescribed a controlled substance at discharge?: No
== END | disposition home or self-care (01) ==
LOC: PNWHC3 12:53
PROVIDERS: ATTEND Specialist
DX: G89.29 Other chronic pain (principal); M47.26 Other spondylosis with radiculopathy, lumbar region; M46.1 Sacroiliitis, not elsewhere classified; F17.200 Nicotine dependence, unspecified, uncomplicated; Z79.891 Long term (current) use of opiate analgesic; Z79.84 Long term (current) use of oral hypoglycemic drugs; Z79.899 Other long term (current) drug therapy
CPT/HCPCS: 99211

== ENCOUNTER 2020-04-27 07:11 | Day surgery (SDC) | payer OTHER ==
[2020-04-26 12:59] VITALS: BMI 35.0
[2020-04-27] MEDS ORDERED: LACTATED RINGERS 1,000 ML IV ONE (07:40)
[2020-04-27 07:43] LABS: Glucose,Whole Blood 115 mg/dL (75-99)
[2020-04-27 07:48] VITALS: RESP 16; TEMP 98
[2020-04-27] MEDS ORDERED: fentaNYL (PF) 50 MCG/ML 2 ML AMP ONE (08:04)
[2020-04-27] MEDS ORDERED: methylPREDNISolone ACETATE 40 MG/ML 1 ML VIAL ONE (08:04)
[2020-04-27] MEDS ORDERED: IOPAMIDOL M200 10 ML VIAL ONE (08:04)
[2020-04-27] MEDS ORDERED: MIDAZOLAM 2 MG/2 ML VIAL ONE (08:04)
--- NOTE | 2020-04-27 08:17 | P.PCN ---
Date of Procedure: 04/27/20 Procedure(s) Performed: PREOPERATIVE DIAGNOSIS: 1- Lumbar radiculopathy 2-Lumbar spondylosis with Facet arthropathy without myelopathy POSTOPERATIVE DIAGNOSIS: 1-Lumber radiculopathy 2-Lumbar spondylosis with Facet arthropathy without myelopathy PROCEDURE 1. Lumbar epidural steroid injection under fluoroscopic guidance at the L4-5 level. (Fluoroscopy imaging was available in radiology department) 2. Lumbar epidurogram. ANESTHESIA: Local with 1% lidocaine 3 ml and , moderate sedation with intravenous Versed 2 mg ,and fentanyle 50 Mcg EBL: Minimal PROCEDURE INDICATION: The patient with low back pain and radiculitis symptoms unresponsive to conservative treatment. Fluoroscopy was used to optimize visualization of the needle placement and to maximize safety. PROCEDURE DESCRIPTION / TECHNIQUE: The patient was seen and identified in the preoperative area. Risks, benefits, complications including but not limited to infections ,bleeding ,allergic reaction to the medications ,nerve damage and not complete pain releife , and alternatives were discussed with the patient. The patient agreed to proceed with the procedure and signed the consent. IV was started, and vital signs were stable. Patient was taken to the OR and time out was completed. The patient was placed in the prone position on procedure table and a pillow was placed under the abdomen to reduce lumbar lordosis. The lumbosacral area was prepped and draped in the usual sterile fashion.ere closely monitored during the procedure. Conscious sedation was used during the procedure to decrease patients anxiety. Vital signs was monitered during the entire procedure. Using anterior-posterior fluoroscopy, the L4-5 interlaminar space was identified and the skin over this site was marked and then infiltrated with 1% lidocaine subcutaneously. Subsequently, a 20-gauge Tuohy epidural needle was inserted and advanced toward the epidural space using the ``Loss of resistance technique and guided by AP and lateral fluoroscopy. The correct needle position in the epidural space was verified with the injection of 2 mL of the water soluble contrast dye Isovue 200 contrast and observing an excellent epidurogram with the epidural spread of the dye, after negative aspiration for blood and CSF and in the absence of paresthesias. Again after negative aspiration, a 6 ml mixture containing 40 mg of Depo-medrol , and 2 ml of preservative free Normal Saline, and 2 ml of preservative free lidocaine 1% solution was injected and a washout of epidurogram was seen. Needle was withdrawn intact, skin was cleansed, and bandages were applied. COMPLICATIONS: None DISPOSITION / PLANS: The patient was placed in a supine position and transferred to the recovery area in a stable condition for observation. There was no evidence of lower extremity motor or sensory deficit after the procedure. Garrett little was discharged from the recovery room after meeting discharge criteria. Home discharge instructions were given to the patient by the staff. The patient was reexamined prior to discharge. The patient will schedule a follow up in the clinic in 2-4 weeks.
[2020-04-27] MEDS ORDERED: IV FLUID CONTINUATION 1,000 ML IV ONE (08:34)
[2020-04-27 08:36] VITALS: BP 117/75; PULSE 75
--- NOTE | 2020-04-27 10:33 | FL ---
EXAMINATION TYPE: FL guided pain mgmt statistic DATE OF EXAM: 04/27/2020 COMPARISON: NONE HISTORY: Lumbar epidural injection TECHNIQUE: Fluoroscopy. FINDINGS: Fluoroscopic guidance was provided during procedure for performing physician. A total of 1 seconds of fluoroscopic time was utilized during the procedure and 1 spot images was acquired. IMPRESSION: As Above.
== END 2020-04-27 08:50 | disposition home or self-care (01) ==
LOC: ORPAIN 07:11
PROVIDERS: ATTEND Specialist
DX: M47.26 Other spondylosis with radiculopathy, lumbar region (principal); I10 Essential (primary) hypertension; E11.9 Type 2 diabetes mellitus without complications
CPT/HCPCS: 81025; 62323; J2250; J1030; J3010; Q9966

== ENCOUNTER 2020-05-25 06:09 | Day surgery (SDC) | payer OTHER ==
[2020-05-24 09:50] VITALS: BMI 34.7
[2020-05-25 06:38] VITALS: RESP 16; TEMP 97.8
[2020-05-25 06:48] LABS: Glucose,Whole Blood 115 mg/dL (75-99)
[2020-05-25] MEDS ORDERED: IOPAMIDOL M200 10 ML VIAL ONE (06:52)
[2020-05-25] MEDS ORDERED: TRIAMCINOLONE ACETONIDE 40 MG/ML 1 ML VIAL ONE (06:52)
--- NOTE | 2020-05-25 07:08 | P.PCN ---
Date of Procedure: 05/25/20 Description of Procedure: PREOPERATIVE DIAGNOSIS: Lumbar radiculopathy POSTOPERATIVE DIAGNOSIS: Same PROCEDURE PERFORMED: Interlaminar Epidural Steroid Injection at the L4-L5 level, with a left paramedian approach under fluoroscopic guidance SURGEON: Last Pina MD ANESTHESIA: Local with 1% lidocaine 3 ml Fluoroscopy was used for the procedure and images were saved in the radiology portion of the chart. EBL: Minimal PROCEDURE INDICATION: The patient presents with lumbar radicular symptoms unresponsive to conservative treatment. This is the second lumbar epidural steroid injection PROCEDURE DESCRIPTION / TECHNIQUE: The patient was seen and identified in the preoperative area. Risks, benefits, complications including but not limited to infections ,bleeding ,allergic reaction to the medications ,nerve damage and incomplete pain relief, and alternatives were discussed with the patient. The patient agreed to proceed with the procedure and signed the consent. IV was started, and vital signs were stable. Patient was taken to the OR and time out was completed. The patient was placed in the prone position on procedure table and a pillow was placed under the chest area. The cervical area was prepped and draped in the usual sterile fashion. Conscious sedation was used during the procedure to decrease patients anxiety. Vital signs was monitored during the entire procedure. Using anterior-posterior fluoroscopy, the L4-L5 interlaminar space was identified and the skin over this site was marked and then infiltrated with 1% lidocaine subcutaneously. Subsequently, a 20-gauge Tuohy epidural needle was inserted and advanced toward the epidural space using the loss of resistance t echnique and guided by AP and lateral views. The correct needle position in the epidural space was verified. After negative aspiration for blood and CSF and in the absence of paresthesias, Isovue 200 2 mL's was injected under live fluoroscopy with good epidural spread. After negative aspiration, a 5 mL mixture containing 2 mL PFNS, 2 mL 1% lidocaine, 40 mg kenalog.. Needle was withdrawn intact, skin was cleansed, and bandages were applied. COMPLICATIONS: None DISPOSITION / PLANS: The patient was placed in a supine position and transferred to the recovery area in a stable condition for observation. There was no evidence of lower extremity motor or sensory deficit after the procedure. Patient was discharged from the recovery room after meeting discharge criteria. Home discharge instructions were given to the patient by the staff. The patient will be scheduled a followup in clinic in 4 weeks
[2020-05-25 07:13] VITALS: BP 132/90; PULSE 79
--- NOTE | 2020-05-25 08:34 | FL ---
EXAMINATION TYPE: FL guided pain mgmt statistic DATE OF EXAM: 05/25/2020 HISTORY: Fluoroscopy time 9 seconds of fluoroscopy provided. IMPRESSION: 1. Fluoroscopy time.
== END 2020-05-25 07:41 | disposition home or self-care (01) ==
LOC: ORPAIN 06:09
PROVIDERS: ATTEND Anesthesiology
DX: M54.16 Radiculopathy, lumbar region (principal); E11.9 Type 2 diabetes mellitus without complications
CPT/HCPCS: 81025; 62323; J3301; Q9966

== ENCOUNTER → 2020-06-23 | Outpatient (CLI) | payer OTHER ==
[2020-06-23 10:09] VITALS: BP 112/78; PULSE 69; RESP 16; TEMP 98.1
--- NOTE | 2020-06-23 10:47 | P.PN ---
Subjective Progress Note Date: 06/23/20 this is follow visit for this 50 years old female ,with chronic history of severe low back pain ,she is diagnosed with lumbar radiculopathy, lumbar spondylosis with lumbar facet arthropathy, and sacroiliitis, previously we have done epidural steroid injection, and she had short-term benefit from it, curr ently she is complaining of severe low back pain associated with numbness and tingling sensation in the lower extremity, mainly in the left second toe only , she denies any motor or sensory deficit she denies any fever or night sweats. No change in the bowel movements or urination, and she reported that the numbness and tingling in the second toe is constant . And she reported that the low back pain radiated to both sides , and to the buttock bilaterally Objective - Vital Signs Vital signs: Vital Signs Temp 98.1 F 06/23/20 09:58 Pulse 69 06/23/20 09:58 Resp 16 06/23/20 09:58 BP 112/78 06/23/20 09:58 Pulse Ox 98 06/23/20 09:58 - Exam -Constitutiona : Cooperative , not in acute distress . -HEENT : nech : supple , no Lymphadenopathy , normal thyroid size . : eyes : no ptosis , no icterus, no photophobia . . - neurologic : Cranial nerve II to XII intact , no focal neurological deffecit . -psychatric : alert , oriented X 3 , appropriate affect , intact judgment and insight . -Lymphatic : no Lymphadenopathy . - musculoskeltal : Lumber spine moter stegnth lower extremities ,thigh and legs 5/5 Right side , 5/5 Left side deep tendon reflexes : normal Knee Jerk , normal ankle Jerk lumber facet Loading Test =positive Right , positive Left Range of motion of the lumbar spine Flexion 30 degrees, extension 10 degrees strait leg raising test = positive at 30 degree on the left side ,and is negative on the right Fabere test= positive Right , and positive LT . Sever tenderness over the Sacroiliac joint on the Right , and Left sides Gaenslen test= positive right ,and positive left . Seated flexion test= positive right ,and positive Left Assessment and Plan Plan: Assessment and plan Lumbar radiculopathy , lumbar spondylosis with lumbar facet arthropathy . Bilateral sacroiliitis Patient continued to have severe low back pain and numbness in the lower extremity after lumbar epidural steroid injection She will continue to use her pain medication Ultram 50 mg 3 times a day and Flexeril 5 mg daily at bedtime as prescribed by her primary care She could benefit from Neurontin 100 mg 3 times a day Patient referred to orthopedic spine surgeon Dr. Ortiz for evaluation . The patient will be good candidate to have a nerve conduction study She will follow up in the pain clinic when necessary Time with Patient: Less than 30 PQRS Measure Charge Sheet Measure #130: Documentation of Current Meds in Medical Chart: Patient's medications documented in chart Measure #226: Tobacco Use: Screen & Cessation Intervention: Pt screened for tobacco use AND intervention given Measure #111: Pneumonia Vaccination: Pneumococcal vaccine NOT administered or previously given Measure #47: Advance Care Plan: Advance care planning discussed & documented, pt chose/unable to give Measure #412: Opioid Treatment Agreement: No documentation of signed opioid treatment agreement Measure #408: Opioid Therapy Follow-up Evaluation: Patient had NO f/u eval minimum every 3 months during opioid therapy Measure #317: Preventitive Care & Scrn High Bld Press & F/U: Pre-hypertensive or hypertensive BP documented, pt will f/u with PCP Measure #128: Body Mass Index (BMI) Screening & Follow-up: BMI documented ABOVE normal parameters - f/u documented Measure #131: Pain Assessment & Follow-up: Pain positive & plan documented, Follow-up scheduled Measure #431: Unhealthy Alcohol Use Preventative Care & Scrn: Patient not identified as an unhealthy alcohol user PQRS Narrative: Time with Patient: Less than 30
== END | disposition home or self-care (01) ==
LOC: PNWHC3 09:51
PROVIDERS: ATTEND Specialist
DX: M46.1 Sacroiliitis, not elsewhere classified (principal); M47.26 Other spondylosis with radiculopathy, lumbar region; Z79.891 Long term (current) use of opiate analgesic; Z79.899 Other long term (current) drug therapy
CPT/HCPCS: 99211

== ENCOUNTER → 2020-07-27 | Outpatient (CLI) | payer OTHER ==
[2020-07-27 09:30] VITALS: BP 111/74; PULSE 80; RESP 18; TEMP 98.6
--- NOTE | 2020-07-27 10:13 | P.HPOB ---
History of Present Illness H&P Date: 07/27/20 Chief Complaint: The patient is here for her routine gynecologic exam and ma mmogram. This is a 50-year-old with an LMP of 05/12/2020. The patient is status post tubal ligation. Her menstrual periods were regular every month up until January 2020. She had 4 months of amenorrhea and her only other. Since then was in May. She denies hot flashes, but always feels warm. She still has the left labial cyst which feels unchanged to her. Generally does not cause her much problem but is occasionally noticeable to her. She states it has been there for about 30 years. She is otherwise without complaints. Review of Systems The patient has lost 29 pounds over the last year. She has lost the weight through dietary improvement. She has been trying to lose weight since she was told it would help her knee problems. She denies respiratory, cardiac, or G.I. problems. Past Medical History Past Medical History: COPD, Diabetes Mellitus, GERD/Reflux, Hypertension, Sleep Apnea/CPAP/BIPAP Additional Past Medical History / Comment(s): Type 2 diabetes. 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 PAST [employer] HISTORY: she was treated for trichomonas in 2013. She has had a left labial cyst since 1989. History of Any Multi-Drug Resistant Organisms: None Reported Past Surgical History: Orthopedic Surgery, Tubal Ligation Additional Past Surgical History / Comment(s): Left ACL, medial meniscus repair. Right knee - medial meniscus repair. Right wrist fracture - surgical repair.RIGHT RING FINGER. PAIN CLINIC PROCEDURES Past Anesthesia/Blood Transfusion Reactions: No Reported Reaction Past Psychological History: Anxiety, Depression, Panic Disorder Smoking Status: Current every day smoker (About one third of a pack of cigarettes per day.) Past Alcohol Use History: None Reported (She states she quit drinking in 2019.) Additional Past Alcohol Use History / Comment(s): STARTED SMOKING AT AGE 17. Past Drug Use History: None Reported Additional History: She is . She has been with her boyfriend since 2018 and lives with him. She is disabled. - Past Family History Mother Family Medical History: Cancer Additional Family Medical History / Comment(s): UTERINE AND BREAST CANCER, Medications and Allergies Home Medications Medication Instructions Recorded Confirmed Type Oxybutynin Chloride [Ditropan] 5 mg PO HS 05/27/15 07/27/20 History FLUoxetine HCL [PROzac] 40 mg PO QAM 02/15/16 07/27/20 History Omeprazole 20 mg PO QAM 03/05/17 07/27/20 History ALPRAZolam [Xanax] 0.5 mg PO BID 10/10/17 07/27/20 History Albuterol Inhaler (Mhu) [Ventolin 1 - 2 puff INHALATION Q6HR PRN 10/10/17 07/27/20 History Hfa Inhaler] traMADol HCL [Ultram] 50 mg PO TID 11/22/17 07/27/20 History hydroCHLOROthiazide 50 mg PO QAM 01/21/18 07/27/20 History metFORMIN HCL [metFORMIN HCL ER] 500 mg PO QAM 02/25/18 07/27/20 History Cyclobenzaprine [Flexeril] 5 mg PO HS PRN 03/27/19 07/27/20 History Albuterol Sulfate [Proair Hfa] 2 puff INHALATION BID 06/15/20 07/27/20 History Gabapentin [Neurontin] 100 mg PO TID 07/27/20 07/27/20 History Allergies Allergy/AdvReac Type Severity Reaction Status Date / Time No Known Allergies Allergy Verified 07/27/20 09:25 Exam Vital Signs Temp Pulse Resp BP Pulse Ox 07/27/20 09:25 98.6 F 80 18 111/74 95 Intake and Output 07/26/20 07/27/20 07/27/20 22:59 06:59 14:59 Other: Weight 92.533 kg Height 5 feet 4 inches, weight 204 pounds, BMI 35.0. This is a well-developed well-nourished white female who is alert and oriented times 3 in no acute distress. HEENT: Within normal limits. NECK: Supple without mass or thyromegaly. CHEST AND LUNGS: Clear to auscultation. HEART: Regular rate and rhythm. BREASTS: Are without mass or discharge. AXILLARY EXAM: Negative for adenopathy. BACK: Negative for CVA tenderness. ABDOMEN: Soft, nontender, without palpable masses. PELVIC EXAM: External genitalia reveals a 2.0 x 2.0 left labia minora cyst at the anterior aspect of the labia. It is soft and nontender and is stable from her previous exam. Cervix and vagina appear normal. There is no unusual discharge. There is no evidence of prolapse. The uterus is midposition, multiparous nongravid size and nontender. There are no palpable adnexal masses or tenderness. RECTAL EXAM: negative for mass or tenderness and is negative for occult blood. EXTREMITIES: Nontender. IMPRESSION: 1. 50-year-old perimenopausal female with recent oligomenorrhea who is status post tubal ligation. 2. Benign Left labia minora cyst measuring 2.0 x 2.0 cm and is stable from her previous examination. PLAN: 1. Pap smear cotest was performed. 2. Self breast awareness was discussed with the patient. 3. Screening mammogram will be done today. 4. We have had a long discussion regarding her left labial cyst. We have discussed the option of surgical removal and she is going to consider this. If she decides to proceed with this, she will be referred back to Dr. Souza to discuss this option. 5. She will keep a menstrual calendar and call if menstrual problems. 6. She was advised to return in one year for her annual well woman exam and as needed.
--- NOTE | 2020-07-28 11:25 | MM ---
Reason for exam: screening (asymptomatic). Last mammogram was performed 1 year and 2 months ago. History: Family history of breast cancer in mother at age 61. Physical Findings: A clinical breast exam by your physician is recommended on an annual basis and results should be correlated with mammographic findings. MG Screening Mammo w CAD Bilateral CC and MLO view(s) were taken. Prior study comparison: May 20, 2019, bilateral MG screening mammo w CAD. February 05, 2018, bilateral MG screening mammo w CAD. January 29, 2017, bilateral MG screening mammo w CAD. The breast tissue is heterogeneously dense. This may lower the sensitivity of mammography. There are benign appearing round calcifications bilaterally. There is no discrete abnormality. ASSESSMENT: Benign, BI-RAD 2 RECOMMENDATION: Routine screening mammogram of both breasts in 1 year.
== END | disposition home or self-care (01) ==
LOC: WWCWWP 09:14
PROVIDERS: ATTEND Obstetrics & Gynecology
DX: Z12.31 Encounter for screening mammogram for malignant neoplasm of breast (principal)
CPT/HCPCS: 77067

== ENCOUNTER → 2021-03-07 | Outpatient (CLI) | payer OTHER ==
[2021-03-07 11:00] VITALS: BP 140/90; PULSE 95; RESP 18; TEMP 98.3
--- NOTE | 2021-03-07 11:16 | P.PAINPG ---
Subjective Progress Note Date: 03/07/21 this is follow visit for this 51 years old female ,with chronic history of severe low back pain ,she is diagnosed with lumbar radiculopathy, lumbar spondylosis with lumbar facet arthropathy, and sacroiliitis, to recap we've performed to L4-L5 epidural steroid injections for her in May and June of last year. Afterwards she complained of low back pain and numbness and tingling which had not remitted even with the injections. She denied any motor or sensory deficits at the time or any changes in her bowel movements or urination. Our plan at the time was to start her on gabapentin 100 g 3 times a day as well as for her to continue her tramadol 50 mg 3 times a day and Flexeril 5 mg daily which was prescribed by her primary care. We also referred her to the orthopedic spine surgeon Dr. Ortiz for evaluation. We were also considering an EMG at the time. She went to Dr Ortiz who had no surgical interventions for her. She also saw another physician at who apparently performed an EMG and told her the symptoms were coming from her back. Pain is located mostly in the left side with radiation down the left anterior thigh all the way down to the feet. She also describes bilateral foot numbness and tingling. She was told that the foot numbness and tingling was not from her diabetes and it is coming from her back. She is also scheduled for knee replacement soon when she is able to stop smoking for 2 months. She mentions that the gabapentin we prescribed for her many months ago was helpful but she just stopped taking it. Objective - Exam -Constitutiona : Cooperative , not in acute distress . -HEENT : nech : supple , no Lymphadenopathy , normal thyroid size . : eyes : no ptosis , no icterus, no photophobia . . - neurologic : Cranial nerve II to XII intact , no focal neurological deffecit . -psychatric : alert , oriented X 3 , appropriate affect , intact judgment and insight . -Lymphatic : no Lymphadenopathy . - musculoskeltal : Lumber spine moter stegnth lower extremities ,thigh and legs 5/5 Right side , 5/5 Left side deep tendon reflexes : normal Knee Jerk , normal ankle Jerk lumber facet Loading Test =positive Right , positive Left Range of motion of the lumbar spine Flexion 30 degrees, extension 10 degrees strait leg raising test = positive at 30 degree on the left side ,and is negative on the right Fabere test= positive Right , and positive LT . Sever tenderness over the Sacroiliac joint on the Right , and Left sides Gaenslen test= positive right ,and positive left . Seated flexion test= positive right ,and positive Left Assessment and Plan Plan: Assessment and plan Lumbar radiculopathy , lumbar spondylosis with lumbar facet arthropathy . Bilateral sacroiliitis Patient continued to have severe low back pain and numbness in the lower extremity after lumbar epidural steroid injection The patient continues to have back and left lower extremity pain that was not helped much by her injections. I will order a repeat MRI to assess for any new nerve impingement nor facet joint hypertrophy that could be contributing to her overall pain and we can possibly plan for injection. I will also restart her on gabapentin at 300 mg 3 times a day with an up titrating dose. We will see her in a month or after she gets her MRI. I have spent 31 minutes on patient care today. The time was used to review the medical records including relevant urine studies and prescription history, review of the available imaging, evaluation and examination of the patient, coordination of care with the medical staff and if applicable referring physicians, as well as creation of the medical record. PQRS Measure Charge Sheet Measure #130: Documentation of Current Meds in Medical Chart: Patient's medications documented in chart Measure #226: Tobacco Use: Screen & Cessation Intervention: Pt screened for tobacco use AND intervention given Measure #111: Pneumonia Vaccination: Pneumococcal vaccine NOT administered or previously given Measure #47: Advance Care Plan: Advance care planning discussed & documented, pt chose/unable to give Measure #412: Opioid Treatment Agreement: No documentation of signed opioid treatment agreement Measure #408: Opioid Therapy Follow-up Evaluation: Patient had NO f/u eval minimum every 3 months during opioid therapy Measure #317: Preventitive Care & Scrn High Bld Press & F/U: Pre-hypertensive or hypertensive BP documented, pt will f/u with PCP Measure #128: Body Mass Index (BMI) Screening & Follow-up: BMI documented ABOVE normal parameters - f/u documented Measure #131: Pain Assessment & Follow-up: Pain positive & plan documented, Follow-up scheduled Measure #431: Unhealthy Alcohol Use Preventative Care & Scrn: Patient not identified as an unhealthy alcohol user PQRS Narrative: Time with Patient: Less than 30 PQRS Measure Charge Sheet PQRS Narrative: Smoking Status Current every day smoker Scale Used Numeric (1 - 10) Hx Alcohol Use (MH) Yes: OCCASIONAL Home Medications: Ambulatory Orders FLUoxetine HCL [PROzac] 40 mg PO QAM 02/15/16 Omeprazole 20 mg PO QAM 03/05/17 ALPRAZolam [Xanax] 0.25 mg PO DAILY 10/10/17 hydroCHLOROthiazide 50 mg PO QAM 01/21/18 metFORMIN HCL [metFORMIN HCL ER] 500 mg PO QAM 02/25/18 Cyclobenzaprine [Flexeril] 5 mg PO HS PRN 03/27/19 Albuterol Sulfate [Proair Hfa] 2 puff INHALATION QID PRN 06/15/20 Gabapentin 300 mg PO TID 30 Days #90 cap 03/07/21 Controlled Substance Measures - Controlled Substance Measures Is patient prescribed a controlled substance at discharge?: Yes When asked, does pt state using other controlled substances?: No If prescribed controlled substance>3 days was MAPS reviewed?: Yes
== END ==
LOC: PNWHC3 10:48
PROVIDERS: ATTEND Anesthesiology
DX: M47.26 Other spondylosis with radiculopathy, lumbar region (principal); M46.1 Sacroiliitis, not elsewhere classified; F17.200 Nicotine dependence, unspecified, uncomplicated
CPT/HCPCS: 99211

== ENCOUNTER → 2021-04-15 | Outpatient (CLI) | payer OTHER ==
--- NOTE | 2021-04-15 12:13 | MR ---
EXAMINATION TYPE: MR lumbar spine wo con DATE OF EXAM: 04/15/2021 COMPARISON: Prior MR lumbar spine 03/05/2019 HISTORY: Low back pain TECHNIQUE: Multiplanar, multisequence images of the lumbar spine were acquired without IV contrast. L1-L2: Normal disc appearance without desiccation. No herniation, protrusion or disc bulging. No ca nal stenosis is present. Foramina are patent bilaterally. L2-L3: Normal disc appearance without desiccation. No herniation, protrusion or disc bulging. No ca nal stenosis is present. Foramina are patent bilaterally. L3-L4: There is been interval development of a T2 bright, T1 isointense focus extending from the righ t facet and causes right lateral mass effect on the thecal sac, sagittal image #10 measuring approxim ately 11 mm, encroaching the right lateral recess consistent with synovial cyst. L4-L5: Stable appearance. Left lateral annular tear change is present as previously described. There is some facet arthropathy change L5-S1: Normal disc appearance without desiccation. No herniation, protrusion or disc bulging. No ca nal stenosis is present. Foramina are patent bilaterally. Lumbar segments are intact. No paraspinal masses are identified. Conus medullaris has a normal appe arance. Lumbar vertebral bodies show preserved height and alignment. There is no significant spinal s tenosis. Marrow signal is stable. Loss of disc height and signal is present at L5-S1, L4-5 greater th an L3-4. Mild multilevel spondylosis is again seen. IMPRESSION: Degenerative disc disease and facet arthropathy as described is similar to prior exam. Th ere has been interval development of a synovial cyst at L3-4, correlate for right L3 radiculopathy.
== END | disposition home or self-care (01) ==
LOC: RADMRIMAIN 09:42
PROVIDERS: ATTEND Anesthesiology
DX: M51.36 Other intervertebral disc degeneration, lumbar region (principal); M47.816 Spondylosis without myelopathy or radiculopathy, lumbar region; M71.38 Other bursal cyst, other site
CPT/HCPCS: 72148

== ENCOUNTER → 2021-04-20 | Outpatient (CLI) | payer OTHER ==
[2021-04-20 09:15] VITALS: BP 121/84; PULSE 89; RESP 18
--- NOTE | 2021-04-20 09:44 | P.PN ---
Subjective Progress Note Date: 04/20/21 this is follow visit for this 51 years old female ,with chronic history of severe low back pain ,she is diagnosed with lumbar radiculopathy, lumbar spondylosis with lumbar facet arthropathy, and sacroiliitis, Last year we have done L4-L5 epidural steroid injections . It helped to some degree currently she is complaining of severe low back pain with radiation to the left lower extremity associated with numbness and tingling sensation. She denied any motor or sensory deficits at the time or any changes in her bowel movements or urination. She is currently on Flexeril 5 mg daily at bedtime and, Neurontin 300 mg 3 times a day he denies any side effect of the medication, but she reported that she had a lot of muscle spasms especially at night, She went to Dr Ortiz who had no surgical interventions for her. She also saw another physician at who apparently performed an EMG Objective= -Constitutiona : Cooperative , not in acute distress . -HEENT : nech : supple , no Lymphadenopathy , normal thyroid size . : eyes : no ptosis , no icterus, no photophobia . . - neurologic : Cranial nerve II to XII intact , no focal neurological deffecit . -psychatric : alert , oriented X 3 , appropriate affect , intact judgment and insight . -Lymphatic : no Lymphadenopathy . - musculoskeltal : Lumber spine moter stegnth lower extremities ,thigh and legs 5/5 Right side , 5/5 Left side deep tendon reflexes : normal Knee Jerk , normal ankle Jerk lumber facet Loading Test =positive Right , positive Left Range of motion of the lumbar spine Flexion 30 degrees, extension 10 degrees strait leg raising test = positive at 30 degree on the left side ,and is negative on the right Fabere test= positive Right , and positive LT . tenderness over the Sacroiliac joint on the Right , and Left sides MRI of the lumbar spine= multilevel lumbar bulging disks disease and multilevel lumbar spondylosis with lumbar facet arthropathy, side annular tear at L4 5 Assessment and plan Lumbar radiculopathy , lumbar spondylosis with lumbar facet arthropathy . Bilateral sacroiliitis Patient could benefit from a left-sided transforaminal epidural steroid injection at L4 5 the fluoroscopy guidance refill for Neurontin 300 mg 3 times a day and Lexapro 5 mg daily at bedtime was given MAPS reviewed and it was appropriate - PQRS measures = - Patient's medications are documented in the chart. -Tobacco use is positive , and counseling.Given. -Patient's has not received pneumococcal vaccine. -Advanced care planning discussed, patient not eligible. -Opiate contract signed. -Pain positive and follow-up visit/procedure is scheduled. -Patient's blood pressure measured [ 121/84 ] , and documented in the record ,and patient will follow up with the primary care. -Patient's weight was measured and body mass index [ ] above the, normal limits and counseling was done. and patient instructed to follow-up with the primary care physician. -Patient was not identified as an unhealthy alcohol user Time with Patient: Less than 30 Objective - Vital Signs Vital signs: Vital Signs Temp Pulse 89 04/20/21 09:10 Resp 18 04/20/21 09:10 BP 121/84 04/20/21 09:10 Pulse Ox 94 L 04/20/21 09:10
== END ==
LOC: PNWHC3 08:46
PROVIDERS: ATTEND Specialist
DX: M47.26 Other spondylosis with radiculopathy, lumbar region (principal); M46.1 Sacroiliitis, not elsewhere classified; F17.200 Nicotine dependence, unspecified, uncomplicated
CPT/HCPCS: 99211

== ENCOUNTER 2021-05-24 06:04 | Day surgery (SDC) | payer OTHER ==
[2021-05-24 07:03] VITALS: RESP 16; TEMP 97.1
[2021-05-24 07:04] LABS: Glucose,Whole Blood 140 mg/dL (75-99)
[2021-05-24] MEDS ORDERED: methylPREDNISolone ACETATE 40 MG/ML 1 ML VIAL ONE (07:08)
[2021-05-24] MEDS ORDERED: IOPAMIDOL M200 10 ML VIAL ONE (07:08)
[2021-05-24] MEDS ORDERED: LACTATED RINGERS 1,000 ML IV SCH (07:28)
--- NOTE | 2021-05-24 07:32 | P.PCN ---
Date of Procedure: 05/24/21 Procedure(s) Performed: PREOPERATIVE DIAGNOSIS: Lumbar radiculopathy . POSTOPERATIVE DIAGNOSIS: Same as preoperative diagnoses. PROCEDURE 1. Transforaminal epidural steroid injection under fluoroscopic guidance at left L4-5 level. (Fluoroscopy images stored on file in the radiology Department ) 2. Lumbar epidurogram . ANESTHESIA: Local with 1% lidocaine 3 ml only. EBL: Minimal PROCEDURE INDICATION: The patient with low back pain and radiculopathy symptoms unresponsive to conservative treatment. PROCEDURE DESCRIPTION / TECHNIQUE: The patient was seen and identified in the preoperative area. Risks, benefits, complications, and alternatives were discussed with the patient. The patient agreed to proceed with the procedure and signed the consent. IV was started, and vital signs were stable. Patient was taken to the OR and time out was completed. The patient was placed in the prone position on procedure table and a pillow was placed under the abdomen to reduce lumbar lordosis. The lumbosacral area was prepped and draped in the usual sterile fashion. Critical pause was taken. Vital signs were closely Using oblique fluoroscopy, the chin of the ``Enrike dog at L4-5 level was identified, and the skin and deeper tissues just below was localized with 1% lidocaine. Subsequently, a 22-gauge 5-inch spinal needle was advanced under a tunneled view fluoroscopic guidance just underneath the chin of the ``Enrike dog at the left L4-5 Under lateral fluoroscopy, the needle was then advanced to the posterior border of the interforaminal space. After negative aspiration of CSF and blood and with no paresthesias, 1 mL Isovue 200 contrast dye was injected excellent epidurogram and outlining of the nerve root Subsequently, 3 mL of block solution containing 40 mg Depo-Medrol and 2 mL of 0.9% normal saline PF was injected. Needle was removed . At the end of the procedure, skin was cleansed, and bandages were applied. COMPLICATIONS:none DISPOSITION / PLANS: The patient was placed in a supine position and transferred to the recovery area in a stable condition for observation. There was no evidence of lower extremity motor or sensory deficit after the procedure. Patient was discharged from the recovery room after meeting discharge criteria. Home discharge instructions were given to the patient by the staff. The patient was reexamined prior to discharge.
[2021-05-24 07:53] VITALS: BP 129/87; PULSE 97
--- NOTE | 2021-05-24 11:29 | FL ---
Fluoroscopy HISTORY: Pain 8 seconds fluoroscopy time supplied to the referring clinician. 1 intraoperative C-arm images docume nt the procedure. See dictated report from anesthesia.
== END 2021-05-24 07:56 | disposition home or self-care (01) ==
LOC: ORPAIN 06:04
PROVIDERS: ATTEND Specialist
DX: M54.16 Radiculopathy, lumbar region (principal)
CPT/HCPCS: 64483; 81025; J1030; Q9966

== ENCOUNTER → 2021-06-15 | Outpatient (CLI) | payer OTHER ==
[2021-06-15 09:29] VITALS: BP 122/78; PULSE 83; RESP 18; TEMP 97.8
--- NOTE | 2021-06-15 09:49 | P.PN ---
Subjective Progress Note Date: 06/15/21 this is follow visit for this 51 years old female ,with chronic history of severe low back pain ,she is diagnosed with lumbar radiculopathy, lumbar spondylosis with lumbar facet arthropathy, and sacroiliitis, recently we have done left-sided transforaminal epidural steroid injections at L4-L5 levels, is helped for a few weeks, currently she is complaining of severe low back pain with radiation to the left lower extremity associated with numbness and tingling sensation. She denied any motor or sensory deficits at the time or any changes in her bowel movements or urination. She is currently on Flexeril 5 mg daily at bedtime and, Neurontin 300 mg 3 times a day he denies any side effect of the medication, but she reported that she had a lot of muscle spasms especially at night,= She went to Dr Ortiz who had no surgical interventions for her. She also saw another physician at who apparently performed an EMG Objective= -Constitutiona : Cooperative , not in acute distress . -HEENT : nech : supple , no Lymphadenopathy , normal th yroid size . : eyes : no ptosis , no icterus, no photophobia . . - neurologic : Cranial nerve II to XII intact , no focal neurological deffecit . -psychatric : alert , oriented X 3 , appropriate affect , intact judgment and insight . -Lymphatic : no Lymphadenopathy . - musculoskeltal : Lumber spine moter stegnth lower extremities ,thigh and legs 5/5 Right side , 5/5 Left side deep tendon reflexes : normal Knee Jerk , normal ankle Jerk lumber facet Loading Test =positive Right , positive Left Range of motion of the lumbar spine Flexion 30 degrees, extension 10 degrees strait leg raising test = positive at 30 degree on the left side ,and is negative on the right Fabere test= positive Right , and positive LT . tenderness over the Sacroiliac joint on the Right , and Left sides MRI of the lumbar spine= multilevel lumbar bulging disks disease and multilevel lumbar spondylosis with lumbar facet arthropathy, side annular tear at L4 5 Assessment and plan Lumbar radiculopathy , lumbar spondylosis with lumbar facet arthropathy . Bilateral sacroiliitis Patient could benefit from a left-sided transforaminal epidural steroid injection at L4 5 the fluoroscopy guidance refill for Neurontin 300 mg 3 times a day and increase Flexeril 10 mg daily at bedtime was given MAPS reviewed and it was appropriate - PQRS measures = - Patient's medications are documented in the chart. -Tobacco use is positive , and counseling.Given. -Patient's has not received pneumococcal vaccine. -Advanced care planning discussed, patient not eligible. -Opiate contract signed. -Pain positive and follow-up visit/procedure is scheduled. -Patient's blood pressure measured [ 122/78 ] , and documented in the record ,and patient will follow up with the primary care. -Patient's weight was measured and body mass index [ 42.5 ] above the, normal limits and counseling was done. and patient instructed to follow-up with the primary care physician. -Patient was not identified as an unhealthy alcohol user Objective - Vital Signs Vital signs: Vital Signs Temp 97.8 F 06/15/21 09:23 Pulse 83 06/15/21 09:23 Resp 18 06/15/21 09:23 BP 122/78 06/15/21 09:23 Pulse Ox 98 06/15/21 09:23 Intake & Output 06/14/21 06/15/21 06/15/21 18:59 06:59 18:59 Weight 108.862 kg
== END ==
LOC: PNWHC3 09:16
PROVIDERS: ATTEND Specialist
DX: M47.26 Other spondylosis with radiculopathy, lumbar region (principal); M46.1 Sacroiliitis, not elsewhere classified; F17.200 Nicotine dependence, unspecified, uncomplicated
CPT/HCPCS: 80307; G0482; G0463; 99212

== ENCOUNTER → 2021-09-06 | Outpatient (CLI) | payer OTHER ==
[2021-09-06 11:13] VITALS: BP 149/97; PULSE 86; RESP 18; TEMP 98.3
--- NOTE | 2021-09-06 11:54 | P.HPOB ---
History of Present Illness H&P Date: 09/06/21 Chief Complaint: The patient is here for her routine gynecologic exam and ma mmogram. This is a 51-year-old with an LMP of 07/17/2021. She is status post tubal ligation. Menstrual periods have been very infrequent over the past 2 years. She had menstrual periods in May 2020, September 2020, and July 2021. She has been having hot flashes which seem to be increasing especially at night. She was treated for Trichomonas in 2020. She is no longer with that partner and has a new boyfriend. She denies any current vaginal discharge or odor. Review of Systems Height 5 feet 3 inches, weight 245 pounds, BMI This is a well-developed well-nourished heavyset white female who is alert and oriented times 3 in no acute distress. HEENT: Within normal limits. NECK: Supple without mass or thyromegaly. CHEST AND LUNGS: Clear to auscultation. HEART: Regular rate and rhythm. BREASTS: Are without mass or discharge. AXILLARY EXAM: Negative for adenopathy. BACK: Negative for CVA tenderness. ABDOMEN: Soft, nontender, without palpable masses. PELVIC EXAM: Normal external genitalia. Cervix and vagina appear normal. There is a small amount of creamy white discharge without odor. There is no evidence of prolapse. The uterus is midposition, nongravid size and nontender. There are no palpable adnexal masses or tenderness. Bimanual examination is somewhat limited secondary to her size. RECTAL EXAM: negative for mass or tenderness and is negative for occult blood. EXTREMITIES: Nontender. IMPRESSION: 1. 51-year-old perimenopausal female with oligomenorrhea and mild vasomotor symptoms. 2. Slight vaginal discharge on exam today without symptoms. With her history of Trichomonas treated in 2020, we will rule out Trichomonas and other types of vaginitis. 3. Previous Pap smear showed ASCUS with negative high-risk HPV testing on 07/09. PLAN: 1. Pap smear was deferred and this will be repeated next year. 2. Self breast awareness was discussed with the patient. We have also discussed symptoms associated with inflammatory breast cancer. 3. Screening mammogram will be done today. 4. Affirm vaginitis panel was obtained from the vagina. 5. The patient will continue to keep a menstrual calendar and call if menstrual problems. 6. She has not received a Covid vaccination. I have recommended that she get a Covid vaccination especially with her health problems. 7. She was advised to return in one year for her annual well woman exam. Past Medical History Past Medical History: Asthma, COPD, Diabetes Mellitus, GERD/Reflux, Hyperlipidemia, Hypertension, Osteoarthritis (OA), Pneumonia, Sleep Apnea/CPAP/BIPAP Additional Past Medical History / Comment(s): Type 2 diabetes. 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 Pneumonia 04/2021, History of Any Multi-Drug Resistant Organisms: None Reported Past Surgical History: Orthopedic Surgery, Tubal Ligation Additional Past Surgical History / Comment(s): Left knee ACL and medial meniscus repair, Right knee - medial meniscus repair. Right wrist fracture, left RING FINGER -cyst removed, PAIN CLINIC PROCEDURES Past Anesthesia/Blood Transfusion Reactions: No Reported Reaction Past Psychological History: Anxiety, Depression, Panic Disorder Smoking Status: Current every day smoker Past Alcohol Use History: None Reported Additional Past Alcohol Use History / Comment(s): STARTED SMOKING AT AGE 17,4 cigarettes daily Past Drug Use History: None Reported - Past Family History Mother Family Medical History: Cancer Additional Family Medical History / Comment(s): UTERINE AND BREAST CANCER. Medications and Allergies Home Medications Medication Instructions Recorded Confirmed Type Omeprazole 20 mg PO QAM 03/05/17 09/06/21 History metFORMIN HCL [metFORMIN HCL ER] 500 mg PO QAM 02/25/18 09/06/21 History Albuterol Sulfate [Proair Hfa] 2 puff INHALATION QID PRN 06/15/20 09/06/21 History Furosemide [Lasix] 20 mg PO QAM 04/15/21 09/06/21 History Atorvastatin [Lipitor] 40 mg PO DAILY 06/14/21 09/06/21 History Fluticasone/Salmeterol [Advair 1 inhalation PO BID 06/14/21 09/06/21 History 250-50 Diskus] Cyclobenzaprine [Flexeril] 10 mg PO HS 30 Days #30 tab 06/15/21 09/06/21 Rx Gabapentin 300 mg PO TID 30 Days #90 cap 06/15/21 09/06/21 Rx ALPRAZolam [Xanax] 0.25 mg PO BID 06/30/21 09/06/21 History Dulaglutide [Trulicity] 3 mg SQ FR 06/30/21 09/06/21 History FLUoxetine HCL [PROzac] 40 mg PO DAILY 06/30/21 09/06/21 History Ferrous Sulfate [Iron] 325 mg PO DAILY 06/30/21 09/06/21 History Potassium Chloride [Klor-Con 20] 20 meq PO DAILY 06/30/21 09/06/21 History Propranolol [Inderal] 20 mg PO BID 06/30/21 09/06/21 History Allergies Allergy/AdvReac Type Severity Reaction Status Date / Time No Known Allergies Allergy Verified 09/06/21 11:05 Exam Vital Signs Temp Pulse Resp BP Pulse Ox 09/06/21 11:09 98.3 F 86 18 149/97 96 Intake and Output 09/05/21 09/06/21 09/06/21 22:59 06:59 14:59 Other: Weight 112.491 kg
--- NOTE | 2021-09-07 09:25 | MM ---
Reason for exam: screening (asymptomatic). Last mammogram was performed 1 year and 1 month ago. History: Family history of breast cancer in mother at age 61. Physical Findings: A clinical breast exam by your physician is recommended on an annual basis and results should be correlated with mammographic findings. MG Screening Mammo w CAD Bilateral CC and MLO view(s) were taken. Prior study comparison: July 27, 2020, bilateral MG screening mammo w CAD. May 20, 2019, bilateral MG screening mammo w CAD. The breast tissue is heterogeneously dense. This may lower the sensitivity of mammography. There is no discrete abnormality. No significant changes when compared with prior studies. ASSESSMENT: Negative, BI-RAD 1 RECOMMENDATION: Routine screening mammogram of both breasts in 1 year.
[2021-09-07 12:20] LABS: Gardnerella Positive (Negative); Source Vagina; Trichomonas Negative (Negative)
--- NOTE | 2021-09-07 13:01 | P.PN ---
Progress Note - Text Progress Note Date: 09/07/21 OUTPATIENT FOLLOW-UP NOTE TEST(S)/RESULTS: Test results from 09/06/2021 include Affirm vaginitis panel which was positive for Gardnerella and negative for Danika and Trichomonas. METHOD OF NOTIFICATION: The patient was notified by phone. PATIENT COMMENTS: DIAGNOSIS: Bacterial vaginosis with abnormal discharge on examination. DISCUSSION: Metronidazole 500 mg by mouth twice a day 7 days. The electronic prescription has been sent to [facility] pharmacy on . She was instructed to avoid all alcohol while on this medication. PLAN: As above.
== END ==
LOC: WWCWWP 10:40
PROVIDERS: ATTEND Obstetrics & Gynecology
DX: Z12.31 Encounter for screening mammogram for malignant neoplasm of breast (principal); N91.5 Oligomenorrhea, unspecified; J44.9 Chronic obstructive pulmonary disease, unspecified; E11.9 Type 2 diabetes mellitus without complications; K21.9 Gastro-esophageal reflux disease without esophagitis; E78.5 Hyperlipidemia, unspecified; I10 Essential (primary) hypertension; M19.90 Unspecified osteoarthritis, unspecified site; F32.A Depression, unspecified; F41.0 Panic disorder [episodic paroxysmal anxiety]; Z86.19 Personal history of other infectious and parasitic diseases; F17.200 Nicotine dependence, unspecified, uncomplicated; Z79.84 Long term (current) use of oral hypoglycemic drugs; Z79.51 Long term (current) use of inhaled steroids; Z79.899 Other long term (current) drug therapy
CPT/HCPCS: 77067; 87480; 87510; 87660

== ENCOUNTER 2021-10-06 06:32 | Day surgery (SDC) | payer OTHER ==
[2021-10-04 14:45] VITALS: BMI 43.5
[2021-10-06] MEDS ORDERED: LACTATED RINGERS 1,000 ML IV ONE (06:43)
[2021-10-06 06:57] VITALS: TEMP 98.1
[2021-10-06] MEDS ORDERED: IOPAMIDOL M200 10 ML VIAL ONE (07:16)
[2021-10-06] MEDS ORDERED: DEXAMETHASONE SOD PHOSPHATE 10 MG/ML 1 ML VIAL ONE (07:16)
[2021-10-06 07:19] LABS: Glucose,Whole Blood 119 mg/dL (75-99)
--- NOTE | 2021-10-06 07:31 | P.PCN ---
Date of Procedure: 10/06/21 Description of Procedure: PREOPERATIVE DIAGNOSIS: Lumbar radiculopathy POSTOPERATIVE DIAGNOSIS: Lumbar radiculopathy PROCEDURE 1. Transforaminal epidural steroid injection under fluoroscopic guidance left L4-L5 2. Lumbar epidurogram IMAGING Fluoroscopy was used, images where saved to the medical record ANESTHESIA: Local with 1% lidocaine 5 ml PROCEDURE DESCRIPTION / TECHNIQUE: The patient was seen and identified in the preoperative area. Risks, benefits, complications, and alternatives were discussed with the patient. The patient agreed to proceed with the procedure and signed the consent, vital signs were stable prior to the procedure. Patient was taken to the OR and time out was completed. The patient was placed in the prone position on procedure table and a pillow was placed under the abdomen to reduce lumbar lordosis. The lumbosacral area was prepped and draped in the usual sterile fashion. Vital signs were closely monitored during the procedure. Conscious sedation was used. Using oblique fluoroscopy, the chin of the "Enrike dog" at the pedicle and the skin and deeper tissues just below was localized with 1% lidocaine. Subs equently, a 22-gauge 5-inch spinal needle was advanced under a tunneled view fluoroscopic guidance just underneath the chin of the "Enrike dog". Under lateral fluoroscopy, the needle was then advanced to the posterior border interforaminal space. After negative aspiration of CSF and blood and with no paresthesias, 1 mL of Omnipaque-240 contrast dye was injected excellent epidurogram. Subsequently, a solution totalling 2ml of dexamethasone and PFNS was injected after negative aspiration (total of 10mg of dexamethasone was used). The needle was removed intact. COMPLICATIONS: None DISPOSITION: The patient was placed in a supine position and transferred to the recovery area in a stable condition for observation. There was no evidence of lower extremity motor or sensory deficit after the procedure. Patient was discharged from the recovery room after meeting discharge criteria. Home discharge instructions were given to the patient by the staff. The patient was reexamined prior to discharge. Follow up as directed.
[2021-10-06 07:41] VITALS: BP 150/89; PULSE 82; RESP 16
--- NOTE | 2021-10-06 10:08 | FL ---
Fluoroscopy HISTORY: Pain 12 seconds fluoroscopy time supplied to the referring clinician. 1 intraoperative C-arm images docum ent the procedure. See dictated report from anesthesia.
== END 2021-10-06 07:51 | disposition home or self-care (01) ==
LOC: ORPAIN 06:32
PROVIDERS: ATTEND Hospitalist
DX: M54.16 Radiculopathy, lumbar region (principal)
CPT/HCPCS: 81025; 64483; J1100; Q9966

== ENCOUNTER → 2021-10-20 | Outpatient (CLI) | payer OTHER ==
[2021-10-20 10:52] VITALS: BP 149/78; PULSE 89; RESP 20; TEMP 98.2
--- NOTE | 2021-10-20 10:52 | P.PN ---
Subjective Progress Note Date: 10/20/21 Principal diagnosis: A 51 yr old female with a history of severe and chronic low back pain secondary to lumbar degenerative disc diseases and lumbar spondylosis with facet arthropathy presents today for evaluation status post left TF TOM L4-L5 and medication refills. Patient states she experienced 85% pain relief status post procedure. Pain level is currently at 4 out of 10 in intensity, dull, achy in the left lower aspects of her lumbar spine. Pain is provoked with walking and weightbearing activity. Pain is relieved with medications, topicals which provided no relief, injections, physical therapy which she is currently in, home-based stretching regimen and rest. Interventional pain procedures completed include L TFESI L4-L5, LESI L4-L5, L Ischial Bursa Injection Patient is currently on Neurontin & Flexeril prn. Patient denies any side effects of the medication(s), denies excessive drowsiness or sleepiness, denies suicidal ideation and reports that the current pain medication is helping to control the pain and improve activities of daily living. Patient denies any motor or sensory deficits. Patient denies any fever or night sweats, denies any change in the bowel movements or urination. Physical Examination: -Constitutional: Cooperative. Not in acute distress . -HEENT: Neck is supple. No lymphadenopathy. No thyromegaly. Normal thyroid size. Eyes: No ptosis , no icterus, no photophobia. ENT: No auditory deficits. Normal oropharynx. No Thrush. - Respiratory: Chest clear to auscultations bilaterally. No wheezing. No rhonchi. - Cardiovascular: Regular rate and rhythm. S1 / S2 , no S3 , no S4. - Gastrointestinal: Abdomen soft no tenderness. Bowel sounds positive in all four quadrants. No organomegaly. - Genitourinary: Deferred. - Neurologic: Cranial nerve II to XII intact. No focal neurological deficits. - Psychatric: Alert & oriented x 3. Matching mood & appropriate affect. Judgment and insight intact. - Lymphatic: No Lymphadenopathy. - Musculoskeletal: Cervical spine: Muscle bulk/ tone/ strength in the bilateral upper extremities normal. Facet loading test cervical area positive. Lumbar spine: Motor bulk/ tone/ strength lower extremities , thigh and legs : 5/5 Deep tendon reflexes : Normal Knee Jerk. Normal Ankle Jerk . Vertebral body tenderness to palpation over L4 Lumbar Facet Loading Test positive Straight Leg Raise: positive at 30 degrees right side/ left side Gaenslen's Test positive on the left Sacral spine : Severe tenderness over the Sacroiliac joint: right side / left side Range of motion: Flexion of the lumbar spine <60 degrees Range of motion: Extension of the lumbar spine <20 degrees Gaenslen's Test positive Leti test: positive right side / left side Assessment and plan: Chronic low back pain secondary to lumbar degenerative disc disease , lumbar spondylosis with facet arthropathy without myelopathy Recommendation of L TFESI L4-L5 #2. May need a series of injections, up to 3 within a 6 mo period, for optimal pain relief. Risks, benefits of procedure discussed and pt verbalized understanding. Admits to medical history of diabetes. Denies anticoagulant use. Protocol for discontinuation/ continuation of medications ezequiel procedure discussed. Chronic and current use of high-risk medication (Opioids). The patient was counseled about risk of opioid use, psychological risk associated with opioids and was orally counseled to not overuse , divert or sell medications. Pt is to store medication in a safe location. The patient is counseled against driving while using narcotic medications and also not to use alcohol or any illicit recreational drugs. Patient verbalized understanding that the lack of compliance will result in failure to renew narcotic prescription(s) as well as possible discharge from the clinic Diagnoses, prognosis and treatment options including but not limited to physical therapy, surgical interventions, interventional therapies and medication management including narcotics and adjuvant medication were discussed. All patient questions answered MAPS reviewed and it was appropriate. UDS from 06/15/21 reviewed and consistent Prescription refill for Neurontin & Flexeril w 1 mo refill. I have spent 31 minutes on patient care today. Dr Milan was available by phone for the evaluation of this patient. The time was used to review the medical records including relevant urine studies and Prescription history (MAPs), review of the available imaging, evaluation and examination of the patient, coordination of care with the medical staff and if applicable referring physicians, as well as creation of the medical record PQRS Measure Charge Sheet PQRS Narrative: Smoking Status Current every day smoker Narcotic Agreement Date Signed 03/07/21 Hx Alcohol Use (MH) Yes: OCCASIONAL Home Medications: Ambulatory Orders Omeprazole 20 mg PO QAM 03/05/17 metFORMIN HCL [metFORMIN HCL ER] 500 mg PO QAM 02/25/18 Albuterol Sulfate [Proair Hfa] 2 puff INHALATION QID PRN 06/15/20 Furosemide [Lasix] 20 mg PO QAM 04/15/21 Atorvastatin [Lipitor] 40 mg PO DAILY 06/14/21 Fluticasone/Salmeterol [Advair 250-50 Diskus] 1 inhalation PO BID 06/14/21 ALPRAZolam [Xanax] 0.25 mg PO BID 06/30/21 Dulaglutide [Trulicity] 3 mg SQ TORRES 06/30/21 FLUoxetine HCL [PROzac] 40 mg PO DAILY 06/30/21 Ferrous Sulfate [Iron] 325 mg PO DAILY 06/30/21 Potassium Chloride [Klor-Con 20] 20 meq PO DAILY 06/30/21 Propranolol [Inderal] 20 mg PO BID 06/30/21 metroNIDAZOLE [Flagyl] 500 mg PO BID 7 Days #14 tab 09/07/21 Phentermine HCl [Adipex-P] 37.5 mg PO DAILY 10/04/21 Cyclobenzaprine [Flexeril] 10 mg PO HS 30 Days #30 tab 10/20/21 Gabapentin 300 mg PO TID 30 Days #90 cap 10/20/21
== END ==
LOC: PNWHC3 09:57
PROVIDERS: ATTEND Specialist
DX: M51.36 Other intervertebral disc degeneration, lumbar region (principal); M47.816 Spondylosis without myelopathy or radiculopathy, lumbar region; G89.29 Other chronic pain; E11.9 Type 2 diabetes mellitus without complications; Z79.891 Long term (current) use of opiate analgesic; F17.200 Nicotine dependence, unspecified, uncomplicated
CPT/HCPCS: 99211

== ENCOUNTER 2021-11-29 06:29 | Day surgery (SDC) | payer OTHER ==
[2021-11-29] MEDS ORDERED: LACTATED RINGERS 1,000 ML IV SCH (06:45)
[2021-11-29 06:59] VITALS: RESP 16; TEMP 97.7
[2021-11-29 07:00] LABS: Glucose,Whole Blood 105 mg/dL (75-99)
[2021-11-29] MEDS ORDERED: DEXAMETHASONE SOD PHOSPHATE 10 MG/ML 1 ML VIAL ONE (07:16)
[2021-11-29] MEDS ORDERED: IOPAMIDOL M200 10 ML VIAL ONE (07:16)
--- NOTE | 2021-11-29 07:19 | P.PCN ---
Date of Procedure: 11/29/21 Description of Procedure: PREOPERATIVE DIAGNOSIS: Lumbar radiculopathy POSTOPERATIVE DIAGNOSIS: Lumbar radiculopathy PROCEDURE 1. Transforaminal epidural steroid injection under fluoroscopic guidance left L4-L5 2. Lumbar epidurogram IMAGING Fluoroscopy was used, images where saved to the medical record ANESTHESIA: Local with 1% lidocaine 5 ml PROCEDURE DESCRIPTION / TECHNIQUE: The patient was seen and identified in the preoperative area. Risks, benefits, complications, and alternatives were discussed with the patient. The patient agreed to proceed with the procedure and signed the consent, vital signs were stable prior to the procedure. Patient was taken to the OR and time out was completed. The patient was placed in the prone position on procedure table and a pillow was placed under the abdomen to reduce lumbar lordosis. The lumbosacral area was prepped and draped in the usual sterile fashion. Vital signs were closely monitored during the procedure. Conscious sedation was used. Using oblique fluoroscopy, the chin of the "Enrike dog" at the pedicle and the skin and deeper tissues just below was localized with 1% lidocaine. Subs equently, a 22-gauge 3.5-inch spinal needle was advanced under a tunneled view fluoroscopic guidance just underneath the chin of the "Enrike dog". Under lateral fluoroscopy, the needle was then advanced to the posterior border interforaminal space. After negative aspiration of CSF and blood and with no paresthesias, 1 mL of Omnipaque-240 contrast dye was injected excellent epidurogram. Subsequently, a solution totalling 2ml of dexamethasone and PFNS was injected after negative aspiration (total of 10mg of dexamethasone was used). The needle was removed intact. COMPLICATIONS: None DISPOSITION: The patient was placed in a supine position and transferred to the recovery area in a stable condition for observation. There was no evidence of lo wer extremity motor or sensory deficit after the procedure. Patient was discharged from the recovery room after meeting discharge criteria. Home discharge instructions were given to the patient by the staff. The patient was reexamined prior to discharge. Follow up as directed.
[2021-11-29 07:48] VITALS: BP 156/89; PULSE 82
--- NOTE | 2021-11-29 08:22 | FL ---
Fluoroscopy HISTORY: Pain 6 seconds fluoroscopy time supplied to the referring clinician. 2 intraoperative C-arm images docume nt the procedure. See dictated report from anesthesia.
== END 2021-11-29 07:52 | disposition home or self-care (01) ==
LOC: ORPAIN 06:29
PROVIDERS: ATTEND Hospitalist
DX: M54.16 Radiculopathy, lumbar region (principal)
CPT/HCPCS: 64483; 81025; J1100; Q9966

== ENCOUNTER → 2022-01-04 | Outpatient (CLI) | payer OTHER ==
[2022-01-04 09:16] VITALS: BP 124/72; PULSE 94; RESP 18
--- NOTE | 2022-01-04 09:38 | P.PAINPG ---
Objective - Vital Signs Vital signs: Vital Signs Temp Pulse 94 01/04/22 09:06 Resp 18 01/04/22 09:06 BP 124/72 01/04/22 09:06 Pulse Ox 92 L 01/04/22 09:06 FiO2 Intake & Output 01/03/22 01/04/22 01/04/22 18:59 06:59 18:59 Weight 112.037 kg PQRS Measure Charge Sheet Mode of Arrival: Ambulatory Comment: A 51 yr old female with a history of severe and chronic low back pain secondary to lumbar degenerative disc diseases and lumbar spondylosis with facet arthropathy presents today for L TFESI L4-L5. 75% x 3 weeks s/p procedure. Pain level is currently at 4/10 but escalates as high as 8/10 in intensity, achy/throbbing in character and localized to L lower back that descends down L buttocks & LLE. Pain is provoked by . Pain is alleviated with PT in 2018 (lumbar spine) and neck (October 2020), home based exercise regimen, chiropractic treatments last in Jul, 2021, ice, hot bath soaks, medications, OTC topicals, repositioning and rest. Interventional pain procedures completed include L TFESI L4-L5 Patient is currently on Neurontin, Flexeril 10mg Patient denies any side effects of the medication(s), denies excessive drowsiness or sleepiness, denies suicidal ideation and reports that the current pain medication is helping to control the pain and improve activities of daily living. Patient denies any motor or sensory deficits. Patient denies any fever or night sweats, denies any change in the bowel movements or urination. Physical Examination: -Constitutional: Cooperative. Not in acute distress . - Neurologic: Cranial nerve II to XII intact. No focal neurological deficits. - Psychatric: Alert & oriented x 3. Matching mood & appropriate affect. Judgment and insight intact. - Musculoskeletal: Cervical spine: +Crepitus with rotation & lateral flexion Muscle bulk/ tone/ strength in the bilateral upper extremities normal Vertebral body tenderness to palpation Spurling test positive Distraction test positive Facet loading test positive over L C5-C6, C6-C7, side with jump reflex Thoracic spine Muscle bulk / tone/ strength in the bilateral paraspinal muscles normal Vertebral body tender to palpation over Facet loading test positive Lumbar spine: Motor bulk/ tone/ strength lower extremities , thigh and legs : 5/5 Deep tendon reflexes : Normal Knee Jerk. Normal Ankle Jerk . Vertebral body tenderness to palpation over Lumbar Facet Loading Test positive Straight Leg Raise: positive at 30 degrees right side/ left side Gaenslen's Test positive Sacral spine : Severe tenderness over the Sacroiliac joint: right side / left side Range of motion: Flexion of the lumbar spine <60 degrees Range of motion: Extension of the lumbar spine <20 degrees Gaenslen's Test positive Delbert's Test positive Leti test: positive right side / left side Thigh Thrust Test Sacral Thrust Test Assessment and plan: Chronic low back pain secondary to lumbar degenerative disc disease , lumbar spondylosis with facet arthropathy without myelopathy, Cervical DDD Recommendation of cervical x-ray re M50.30. Will follow up and approach additional treatment options. Risks, benefits of procedure discussed and pt verbalized understanding. Denies anticoagulant use or medical history of diabetes. Chronic and current use of high-risk medication (Opioids). The patient was counseled about risk of opioid use, psychological risk associated with opioids and was orally counseled to not overuse , divert or sell medications. Pt is to store medication in a safe location. The patient is counseled against driving while using narcotic medications and also not to use alcohol or any illicit recreational drugs. Patient verbalized understanding that the lack of compliance will result in failure to renew narcotic prescription(s) as well as possible discharge from the clinic Diagnoses, prognosis and treatment options including but not limited to physical therapy, surgical interventions, interventional therapies and medication management including narcotics and adjuvant medication were discussed. All patient questions answered MAPS reviewed and it was appropriate. Urine for UDS collected today 01/04/22 Prescription refill for Neurontin 400mg #90, Flexeril 10mg w 1 refill. I have spent less than 30 minutes on patient care today. Dr Milan was available by phone for the evaluation of this patient. The time was used to review the medical records including relevant urine studies and Prescription history (MAPs), review of the available imaging, evaluation and examination of the patient, coordination of care with the medical staff and if applicable referring physicians, as well as creation of the medical record - Pain Location Left Lower Back Non-Pharmacological Interventions: Chiropractic Treatment, Heat, Home Exercise, Ice, Inactivity, Physical Therapy, Stretching Pharmacological Interventions: Block, Epidural, PRN Medication, Scheduled Medication, Topical Medication Left Neck Non-Pharmacological Interventions: Chiropractic Treatment, Heat, Ice, Inactivity, Physical Therapy, Stretching Pharmacological Interventions: PRN Medication, Scheduled Medication, Topical Medication PQRS Narrative: Smoking Status Current every day smoker Narcotic Agreement Date Signed 03/07/21 Blood Pressure 124/72 Pain Intensity [Left Neck] 2 Pain Intensity [Left Lower 4 Back] Scale Used Numeric (1 - 10) Hx Alcohol Use (MH) Yes: OCCASIONAL Home Medications: Ambulatory Orders Omeprazole 20 mg PO QAM 03/05/17 metFORMIN HCL [metFORMIN HCL ER] 500 mg PO QAM 02/25/18 Albuterol Sulfate [Proair Hfa] 2 puff INHALATION QID PRN 06/15/20 Furosemide [Lasix] 20 mg PO QAM 04/15/21 Atorvastatin [Lipitor] 40 mg PO QAM 06/14/21 Fluticasone Propion/Salmeterol [Advair 250-50 Diskus] 1 inhalation PO BID 06/14/21 ALPRAZolam [Xanax] 0.25 mg PO BID 06/30/21 Dulaglutide [Trulicity] 3 mg SQ TORRES 06/30/21 FLUoxetine HCL [PROzac] 40 mg PO QAM 06/30/21 Ferrous Sulfate [Iron] 325 mg PO DAILY 06/30/21 Potassium Chloride [Klor-Con 20] 20 meq PO DAILY 06/30/21 Propranolol [Inderal] 20 mg PO BID 06/30/21 Phentermine HCl [Adipex-P] 37.5 mg PO QAM 10/04/21 Cyclobenzaprine [Flexeril] 10 mg PO HS 30 Days #30 tab 10/20/21 Gabapentin 300 mg PO TID 30 Days #90 cap 10/20/21 Controlled Substance Measures - Controlled Substance Measures Is patient prescribed a controlled substance at discharge?: Yes When asked, does pt state using other controlled substances?: No If prescribed controlled substance>3 days was MAPS reviewed?: Yes If Rx opioid, was Start Talking consent form obtained?: Yes If opioid is for acute pain is fill amount 7 days or less?: Yes Was information provided regarding opioid addiction?: Yes
== END ==
LOC: PNWHC3 08:44
PROVIDERS: ATTEND Specialist
DX: M51.36 Other intervertebral disc degeneration, lumbar region (principal); M50.30 Other cervical disc degeneration, unspecified cervical region; M47.816 Spondylosis without myelopathy or radiculopathy, lumbar region; G89.29 Other chronic pain; Z79.891 Long term (current) use of opiate analgesic; F17.200 Nicotine dependence, unspecified, uncomplicated
CPT/HCPCS: 80307; G0482; G0463; 99212

== ENCOUNTER → 2022-01-04 | Outpatient (CLI) | payer OTHER ==
--- NOTE | 2022-01-04 11:17 | XR ---
EXAMINATION TYPE: XR cervical spine limited DATE OF EXAM: 01/04/2022 COMPARISON: NONE HISTORY: Neck pain TECHNIQUE: Four views are submitted. FINDINGS: The odontoid is intact. There are no compression deformities. The prevertebral soft tissue structur es are within normal limits. Kyphosis of the spine with degenerative and hypertrophic changes C5-6 a nd C6-C7. There is grade 1 anterolisthesis of C3 on C4 and C4 on C5. IMPRESSION: 1. Appears to be loss of the normal cervical lordosis with grade 1 anterolisthesis C3 and C4 and C4 a nd 5. Mild hypertrophic and degenerative changes mid and lower cervical spine. Recommend follow-up MR I.
== END | disposition home or self-care (01) ==
LOC: RADXRMAIN 09:58
PROVIDERS: ATTEND Physician Assistant Medical
DX: M54.2 Cervicalgia (principal)
CPT/HCPCS: 72040

== ENCOUNTER → 2022-02-17 | Outpatient (CLI) | payer OTHER ==
--- NOTE | 2022-02-18 05:20 | MR ---
EXAMINATION TYPE: MR cervical spine wo con DATE OF EXAM: 02/17/2022 COMPARISON: None HISTORY: Neck pain x 2 months, headaches Multiplanar multi echo imaging of the cervical spine performed with no contrast. There is cervical mild kyphotic deformity. Disc spaces are fairly well-maintained however. No subluxa tion. There is small posterior disc bulging at C4-5 and C5-6. There is developmentally large spinal c anal. No spinal stenosis. Cervical spinal cord has normal signal pattern. No edema. Brainstem is intact. IMPRESSION: Mild cervical kyphotic deformity. Minimal disc bulging at C4-5 and C5-C6. No spinal stenosis. No frac ture.
== END | disposition home or self-care (01) ==
LOC: RADMRIMAIN 06:38
PROVIDERS: ATTEND Specialist
DX: M54.2 Cervicalgia (principal); R51.9 Headache, unspecified
CPT/HCPCS: 72141

== ENCOUNTER → 2022-03-16 | Outpatient (CLI) | payer OTHER ==
[2022-03-16 08:23] VITALS: BP 118/79; PULSE 99; RESP 18; TEMP 98.2
--- NOTE | 2022-03-16 08:32 | P.PN ---
Subjective Progress Note Date: 03/16/22 This is a 52-year-old morbidly obese lady with history of chronic lower back pain and radiation to the posterior aspect of both thighs without any paresthesia in the lower extremities except for the toes bilaterally. The patient also has chronic neck neck pain however her last cervical spine MRI showed only minimal changes as well as disc degeneration without any nerve root compression or spinal stenosis. The lumbar spine MRI did show facet arthropathy and a synovial cyst at L3-L4 level on the right side .she did have transforaminal epidural steroid injection at the L4 5 level on the left side twice with good results for about one month after the procedure. The current pain in her lower back feels different than the old one and it is more on the right side with burning sensation in the right thigh , but she still states that her lower back pain is more intense than her legs pain. Patient denies new-onset weakness, bowel/bladder incontinence, or any other signs or symptoms of cauda equina syndrome. There are no signs of acute intoxication, and no indications of medication diversion or overuse. In addition to above, 13-point review of systems is also negative for chest pain, shortness of breath, changes in vision, changes in hearing, new onset weakness, abdominal pain, diarrhea, extreme fatigue, malaise, fever, skin changes, homicidal or suicidal ideation, or bowel or bladder incontinence. Vital Signs: Reviewed in EMR Gen: AAOx3, NAD HEENT: PERRLA,hearing grossly normal Pulm: resp unlabored Neck: supple, trachea midline Neuro exam of the lower extremities: Mildly decreased but symmetrical muscle strength in the lower extremities. Areflexia Straight leg raising test: Negative bilaterally Delbert's test: Range of motion of the lumbar spine: Facet loading test: Positive on the lumbar area Tenderness in the paravertebral musculature: Positive on the right side of her lumbar spine Neuro: CN II-XII grossly intact, Imaging: Reviewed in EMR/chart Assessment: Lumbar facet arthropathy Lumbar DDD Mild Cervical DDD Plan: 1. Explanation: When patients on opioids, opioid and psychological risk scores were reviewed. Diagnoses, prognoses, and multiple treatment options including but not limited to physical therapy, interventional therapies, adjuvant medical therapies, narcotic medication therapies, and surgery were discussed with the patient and all questions were answered to the patient's satisfaction. 2. Opioid agreement:When patients are prescribed opoids through our clinic, opioid agreement is signed with the patient and the patient is warned not to use opioids while driving or before driving and not to combine opioids with benzodiazepines or alcohol. 3. Counseling: When patient is smoking or obese, the patient was counseled extensively on SMOKING CESSATION, BODY MASS INDEX, EXERCISE. Specifically, the patient was instructed regarding the importance of smoking cessation, obesity, and exercise in the context of both chronic pain and overall health. 4. Procedures: We'll schedule her for diagnostic lumbar medial branch block bilaterally for levels L4 5 and L5-S1 5. Consultations: None 6. Investigations: None 7. Medications: The patient is to continue taking Neurontin 400 mg 3 times a day and Flexeril 10 mg at night however she was advised to cut down on her alcohol usage which showed up on her last urine drug testing 8. Disposition: Return to clinic in 4 weeks and to the above-mentioned procedure as soon as possible 9. Maps were reviewed and were appropriate. Objective - Vital Signs Vital signs: Vital Signs Temp 98.2 F 03/16/22 08:16 Pulse 99 03/16/22 08:16 Resp 18 03/16/22 08:16 BP 118/79 03/16/22 08:16 Pulse Ox 93 L 03/16/22 08:16 FiO2 Intake & Output 03/15/22 03/16/22 03/16/22 18:59 06:59 18:59 Weight 102.965 kg
== END ==
LOC: PNWHC3 07:52
PROVIDERS: ATTEND Anesthesiology
DX: M51.36 Other intervertebral disc degeneration, lumbar region (principal); M47.816 Spondylosis without myelopathy or radiculopathy, lumbar region; M50.30 Other cervical disc degeneration, unspecified cervical region; E66.01 Morbid (severe) obesity due to excess calories; F17.200 Nicotine dependence, unspecified, uncomplicated; Z68.41 Body mass index [BMI] 40.0-44.9, adult
CPT/HCPCS: 99211

== ENCOUNTER → 2022-03-16 | Outpatient (CLI) | payer OTHER ==
[2022-03-16 15:57] LABS: Basophils # (A) 0.09 X 10*3/uL (0.00-0.10); Eosinophils # (A) 0.32 X 10*3/uL (0.04-0.35); Eosinophils % (A) 3.4 %; HCT 49.4 % (37.2-46.3); HGB 16.5 g/dL (12.0-15.0); Immature Grans, Automated 0.2 %; Lymphocytes # (A) 3.28 X 10*3/uL (0.90-5.00); Lymphocytes % (A) 34.9 %; MCH 32.6 pg (27.0-32.0); MCHC 33.4 g/dL (32.0-37.0); MCV 97.6 fL (80.0-97.0); Mean Platelet Volume 11.1 fL (9.5-12.2); Monocytes % (A) 5.3 %; NRBC Per 100 WBC 0 /100 WBCS (0.0-0.0); Neutrophils # (A) 5.19 X 10*3/uL (1.80-7.70); Neutrophils % (A) 55.2 %; Platelet Count 264 X 10*3/uL (140-440); RBC 5.06 X 10*6/uL (4.10-5.20); RDW 12.7 % (11.5-14.5)
[2022-03-16 15:58] LABS: RBC Morphology NORMAL
[2022-03-16 22:49] LABS: Microalbumin Creatinine Ratio <30 mg/g Creat (0-30)
== END | disposition home or self-care (01) ==
LOC: LABWHC1 08:48
PROVIDERS: ATTEND Family Medicine
DX: E11.9 Type 2 diabetes mellitus without complications (principal); Z79.899 Other long term (current) drug therapy
CPT/HCPCS: 36415; 82043; 82570; 83036; 83540; 85025; 86803

== ENCOUNTER → 2022-04-12 | Outpatient (CLI) | payer OTHER ==
[2022-04-12 08:41] VITALS: BP 158/99; PULSE 87; RESP 18; TEMP 98.3
--- NOTE | 2022-04-12 14:08 | P.PAINPG ---
PQRS Measure Charge Sheet Comment: A 52 yr old female with a history of severe and chronic low back pain secondary to lumbar degenerative disc diseases and lumbar spondylosis with facet arthropathy without myelopathy presents today for medication refills. Pain level is currently at 5/10 in intensity, constant, localized in the lower lumbar spine, dull/ achy in character w shooting towards the LLE. Pain is provoked by any activity. Pain is alleviated with meds, injections, ice, heat, laying supine, repositioning and rest. Interventional pain procedures completed include L SI x2, BL TFESI L4-5, TOM L4- 5 x3, L Ischial Bursa injection, Caudal TOM. Patient is currently on Neurontin, Flexeril. Patient denies any side effects of the medication(s), denies excessive drowsiness or sleepiness, denies suicidal ideation and reports that the current pain medication is helping to control the pain and improve activities of daily living. Patient denies any motor or sensory deficits. Patient denies any fever or night sweats, denies any change in the bowel movements or urination. Physical Examination: -Constitutional: Cooperative. Not in acute distress . - Neurologic: Cranial nerve II to XII intact. No focal neurological deficits. - Psychatric: Alert & oriented x 3. Matching mood & appropriate affect. Judgment and insight intact. - Musculoskeletal: Cervical spine: Muscle bulk/ tone/ strength in the bilateral upper extremities normal Vertebral body tenderness to palpation over Spurling test positive Distraction test positive Facet loading test positive Thoracic spine Muscle bulk / tone/ strength in the bilateral paraspinal muscles normal Vertebral body tender to palpation over Facet loading test positive Lumbar spine: Motor bulk/ tone/ strength lower extremities , thigh and legs : 5/5 Deep tendon reflexes : Normal Knee Jerk. Normal Ankle Jerk . Vertebral body tenderness to palpation over L4, L5 Lumbar Facet Loading Test positive Straight Leg Raise: positive at 30 degrees right side/ left side Gaenslen's Test positive Sacral spine : Severe tenderness over the Sacroiliac joint: right side / left side Range of motion: Flexion of the lumbar spine <60 degrees Range of motion: Extension of the lumbar spine <20 degrees Gaenslen's Test positive Delbert's Test positive Leti test: positive right side / left side Thigh Thrust Test Sacral Thrust Test Assessment and plan: Chronic low back pain secondary to lumbar degenerative disc disease , lumbar spondylosis with facet arthropathy without myelopathy Chronic and current use of high-risk medication (Opioids). The patient was counseled about risk of opioid use, psychological risk associated with opioids and was orally counseled to not overuse , divert or sell medications. Pt is to store medication in a safe location. The patient is counseled against driving while using narcotic medications and also not to use alcohol or any illicit recreational drugs. Patient verbalized understanding that the lack of compliance will result in failure to renew narcotic prescription(s) as well as possible discharge from the clinic Diagnoses, prognosis and treatment options including but not limited to physical therapy, surgical interventions, interventional therapies and medication management including narcotics and adjuvant medication were discussed. All patient questions answered MAPS reviewed and it was appropriate. Prescription refill for Neurontin 400mg #90, Flexeril 10mg #30 w 1 RF I have spent less than 30 minutes on patient care today. Dr Milan was available by phone for the evaluation of this patient. The time was used to review the medical records including relevant urine studies and Prescription history (MAPs), review of the available imaging, evaluation and examination of the patient, coordination of care with the medical staff and if applicable referring physicians, as well as creation of the medical record PQRS Narrative: Smoking Status Current every day smoker Narcotic Agreement Date Signed 03/07/21 Pain Intensity [Left Lower 8 Back] Hx Alcohol Use (MH) Yes: OCCASIONAL Home Medications: Ambulatory Orders Omeprazole 20 mg PO QAM 03/05/17 metFORMIN HCL [metFORMIN HCL ER] 500 mg PO QAM 02/25/18 Albuterol Sulfate [Proair Hfa] 2 puff INHALATION QID PRN 06/15/20 Furosemide [Lasix] 20 mg PO QAM 04/15/21 Atorvastatin [Lipitor] 40 mg PO QAM 06/14/21 Fluticasone Propion/Salmeterol [Advair 250-50 Diskus] 1 inhalation PO BID 06/14/21 Dulaglutide [Trulicity] 3 mg SQ TORRES 06/30/21 FLUoxetine HCL [PROzac] 40 mg PO QAM 06/30/21 Ferrous Sulfate [Iron] 325 mg PO DAILY 06/30/21 Potassium Chloride [Klor-Con 20] 20 meq PO DAILY 06/30/21 Propranolol [Inderal] 20 mg PO BID 06/30/21 Phentermine HCl [Adipex-P] 37.5 mg PO QAM 10/04/21 ALPRAZolam [Xanax] 0.5 mg PO BID 04/10/22 Cyclobenzaprine [Flexeril] 10 mg PO HS 30 Days #30 tab 04/12/22 Gabapentin [Neurontin] 400 mg PO TID 30 Days #90 cap 04/12/22 Controlled Substance Measures - Controlled Substance Measures Is patient prescribed a controlled substance at discharge?: Yes When asked, does pt state using other controlled substances?: No If prescribed controlled substance>3 days was MAPS reviewed?: Yes If Rx opioid, was Start Talking consent form obtained?: Yes Was information provided regarding opioid addiction?: Yes
== END ==
LOC: PNWHC3 08:09
PROVIDERS: ATTEND Specialist
DX: M51.36 Other intervertebral disc degeneration, lumbar region (principal); M47.816 Spondylosis without myelopathy or radiculopathy, lumbar region; G89.29 Other chronic pain; F10.90 Alcohol use, unspecified, uncomplicated; F17.200 Nicotine dependence, unspecified, uncomplicated
CPT/HCPCS: 99211

== ENCOUNTER 2022-04-21 06:13 | Day surgery (SDC) | payer OTHER ==
[2022-04-21] MEDS ORDERED: LACTATED RINGERS 1,000 ML IV SCH (06:30)
[2022-04-21 06:48] LABS: Glucose,Whole Blood 124 mg/dL (70-110)
[2022-04-21] MEDS ORDERED: ROPIVACAINE 5 MG/ML 20 ML AMPULE ONE (06:56)
--- NOTE | 2022-04-21 06:58 | P.PCN ---
Date of Procedure: 04/21/22 Description of Procedure: Procedure: BILATERAL L4-5, L5-S1 Diagnosis: Lumbar spondylosis without myelopathy ANESTHESIA: Local only Imaging: Fluoroscopy was used, images where saved to the medical record The patient was seen and examined in the [facility]. Procedure risks and benefits were fully reviewed with the patient. The patient understands this is a diagnostic if local only is used, as will be the case today. The goal of the pr ocedure is to inject medication onto the medial branch or small nerves that innervate the facet joints. In this way, we can hopefully identify which of these joints, if any, may be contributing to their pain. Informed consent for procedure was obtained. The patient was taken into the office fluoroscopy procedure room and placed prone on the table. A pillow was placed under the abdomen to reduce lumbar lordosis. Vital signs were closely monitored during the procedure. The skin over the area was prepped with Betadine X 3 and draped in usual sterile manner. Sterile technique was observed throughout procedure. Under biplanar fluoroscopic guidance, the target injection area of the L4, L5, Sacral Ala were targeted. A 25 gauge 31/2 inch spinal needle was then placed at the most medial and superior aspect of the transverse process near the "eye of the Enrike dog". Aspiration for blood was negative. 1 cc of 0.5% Ropivacaine was injected into the targeted areas separately. Alva were withdrawn intact. No complications were noted during the procedure. The patient tolerated the procedure well. The patient was placed in supine position and transferred to the recovery area for observation and remained stable until discharged home. Home discharge instructions were given to the patient by the staff. The patient will schedule a follow up as directed.
[2022-04-21 06:59] VITALS: TEMP 97
[2022-04-21 07:19] VITALS: RESP 16
[2022-04-21 07:25] VITALS: BP 128/91; PULSE 72
--- NOTE | 2022-04-21 08:08 | FL ---
Fluoroscopy HISTORY: Pain 32 seconds fluoroscopy time supplied to the referring clinician. 4 intraoperative C-arm images docum ent the procedure. See dictated report from anesthesia.
== END 2022-04-21 07:26 | disposition home or self-care (01) ==
LOC: ORPAIN 06:13
PROVIDERS: ATTEND Hospitalist
DX: M47.26 Other spondylosis with radiculopathy, lumbar region (principal)
CPT/HCPCS: 81025; 64493; 64494; J2795

== ENCOUNTER → 2022-06-07 | Outpatient (CLI) | payer OTHER ==
[2022-06-07 08:54] VITALS: BP 120/70; PULSE 87; RESP 18; TEMP 98.4
--- NOTE | 2022-06-07 14:42 | P.PAINPG ---
PQRS Measure Charge Sheet Comment: A 52 yr old female with a history of severe and chronic low back pain secondary to lumbar DDD and spondylosis with facet arthropathy without myelopathy presents today for medication refills and evaluation s/p BL facet block of the medial branches L4-5, L5-S1 #1. Pt states she experienced 100% pain relief x 2 is relievede edays s/p procedure. Pain level is currently at 7/10 in intensity, constant, localized in the lower lumbar spine, achy/ sharp in character w shooting towards t symptoms were the BL hips, L thigh and L toes w accompanying numbness. Pain is provoked by over activity. Pain is alleviated with medications (Neurontin, Flexeril), topicals, injections, alternating heat & ice, PT in the past, daily stretches as tolerated, repositioning and rest. Interventional pain procedures completed include BL MBB L3-L5 x1 Patient is currently on Neurontin 400mg Patient denies any side effects of the medication(s), denies excessive drowsiness or sleepiness, denies suicidal ideation and reports that the current pain medication is helping to control the pain and improve activities of daily living. Patient denies any motor or sensory deficits. Patient denies any fever or night sweats, denies any change in the bowel movements or urination. Physical Examination: -Constitutional: Cooperative. Not in acute distress . - Neurologic: Cranial nerve II to XII intact. No focal neurological deficits. - Psychatric: Alert & oriented x 3. Matching mood & appropriate affect. Judgment and insight intact. - Musculoskeletal: Cervical spine: Muscle bulk/ tone/ strength in the bilateral upper extremities normal Vertebral body tenderness to palpation over Spurling test positive Distraction test positive Facet loading test positive Thoracic spine Muscle bulk / tone/ strength in the bilateral paraspinal muscles normal Vertebral body tender to palpation over Facet loading test positive Lumbar spine: Motor bulk/ tone/ strength lower extremities , thigh and legs : 5/5 Deep tendon reflexes : Normal Knee Jerk. Normal Ankle Jerk . Vertebral body tenderness to palpation over Lumbar Facet Loading Test positive TTP over BL L4-L5, L5-S1 facets Straight Leg Raise: positive at 30 degrees right side/ left side Gaenslen's Test positive Sacral spine : Severe tenderness over the Sacroiliac joint: right side / left side Range of motion: Flexion of the lumbar spine <60 degrees Range of motion: Extension of the lumbar spine <20 degrees Gaenslen's Test positive Leti test: positive right side / left side Thigh Thrust Test Sacral Thrust Test Assessment and plan: Chronic low back pain secondary to lumbar degenerative disc disease, spondylosis with facet arthropathy without myelopathy Recommendation of BL facet block of the medial branches L4-L5, L5-S1 #2. May need a series of injections, up until RFA, for optimal pain relief. Risks, benefits of procedure discussed and pt verbalized understanding. Denies anticoa gulant use or medical history of diabetes. Chronic and current use of high-risk medication (Opioids). The patient was counseled about risk of opioid use, psychological risk associated with opioids and was orally counseled to not overuse , divert or sell medications. Pt is to store medication in a safe location. The patient is counseled against driving while using narcotic medications and also not to use alcohol or any illicit recreational drugs. Patient verbalized understanding that the lack of compliance will result in failure to renew narcotic prescription(s) as well as possible discharge from the clinic Diagnoses, prognosis and treatment options including but not limited to physical therapy, surgical interventions, interventional therapies and medication management including narcotics and adjuvant medication were discussed. All patient questions answered MAPS reviewed and it was appropriate. UDS collected and first bulk today 06/07/22. December 2021 UDS was +ETOH metabolites Prescription refill for Neurontin 400mg #90, Flexeril 10mg w 1 RF I have spent less than 30 minutes on patient care today. Dr Milan was available by phone for the evaluation of this patient. The time was used to review the medical records including relevant urine studies and Prescription history (MAPs), review of the available imaging, evaluation and examination of the patient, coordination of care with the medical staff and if applicable referring physicians, as well as creation of the medical record PQRS Narrative: Smoking Status Current every day smoker Narcotic Agreement Date Signed 03/07/21 Hx Alcohol Use (MH) Yes: OCCASIONAL Home Medications: Ambulatory Orders Omeprazole 20 mg PO QAM 03/05/17 metFORMIN HCL [metFORMIN HCL ER] 500 mg PO QAM 02/25/18 Albuterol Sulfate [Proair Hfa] 2 puff INHALATION BID 06/15/20 Furosemide [Lasix] 20 mg PO QAM 04/15/21 Atorvastatin [Lipitor] 40 mg PO QAM 06/14/21 Fluticasone Propion/Salmeterol [Advair 250-50 Diskus] 1 inhalation PO BID 06/14/21 Dulaglutide [Trulicity] 3 mg SQ TORRES 06/30/21 FLUoxetine HCL [PROzac] 40 mg PO QAM 06/30/21 Potassium Chloride [Klor-Con 20] 20 meq PO DAILY 06/30/21 Propranolol [Inderal] 20 mg PO BID 06/30/21 Phentermine HCl [Adipex-P] 37.5 mg PO QAM 10/04/21 ALPRAZolam [Xanax] 0.5 mg PO BID 04/10/22 traZODone HCL [Desyrel] 50 mg PO HS 04/20/22 Cyclobenzaprine [Flexeril] 10 mg PO HS 30 Days #30 tab 06/07/22 Gabapentin [Neurontin] 400 mg PO TID 30 Days #90 cap 06/07/22 Controlled Substance Measures - Controlled Substance Measures Is patient prescribed a controlled substance at discharge?: Yes When asked, does pt state using other controlled substances?: Yes If prescribed controlled substance>3 days was MAPS reviewed?: Yes If Rx opioid, was Start Talking consent form obtained?: Yes Was information provided regarding opioid addiction?: Yes
== END ==
LOC: PNWHC3 08:26
PROVIDERS: ATTEND Specialist
DX: M47.816 Spondylosis without myelopathy or radiculopathy, lumbar region (principal); M51.36 Other intervertebral disc degeneration, lumbar region; G89.29 Other chronic pain; Z79.891 Long term (current) use of opiate analgesic; F17.200 Nicotine dependence, unspecified, uncomplicated
CPT/HCPCS: 80307; G0482; G0463; 99212

== ENCOUNTER 2022-07-28 06:09 | Day surgery (SDC) | payer OTHER ==
[2022-07-26 10:04] VITALS: BMI 40.4
[2022-07-28] MEDS ORDERED: LIDOCAINE 1% (10MG/ML) FOR IV START INTRADERMA PRN (06:36)
[2022-07-28] MEDS ORDERED: LACTATED RINGERS 1,000 ML IV SCH (06:36)
[2022-07-28 06:46] VITALS: TEMP 97.5
[2022-07-28 06:50] LABS: Glucose,Whole Blood 107 mg/dL (70-110)
[2022-07-28] MEDS ORDERED: ROPIVACAINE 5 MG/ML 20 ML AMPULE ONE (06:54)
[2022-07-28] MEDS ORDERED: methylPREDNISolone ACETATE 40 MG/ML 1 ML VIAL ONE (06:54)
--- NOTE | 2022-07-28 07:20 | P.PCN ---
Date of Procedure: 07/28/22 Procedure(s) Performed: PREOPERATIVE DIAGNOSIS : 1- Lumbar spondylosis with Facet Arthropathy without myelopathy . 2- Lumber degenerative disc disease POSTOPERATIVE DIAGNOSIS: 1- Lumbar spondylosis with Facet Arthropathy without myelopathy . 2- Lumber degenerative disc disease PROCEDURE: Diagnostic bilateral L3 , L4 , and L5 medial branch block under fluoroscopy guidance(fluoroscopy images available in the radiology Department ) ( To target the facet joint between the Bilateral L4-5 , and L5-S1 )#2nd ANESTHESIA: Local anesthesia with ropivacaine 0.5% 6 mL only for skin and subcu tissue infiltration. EBL: Minimal COMPLICATION: None PROCEDURE INDICATION: Chronic low back pain secondary to Facet arthropathy unresponsive to conservative treatment. PROCEDURE DESCRIPTION: the patient was seen and identified in the preop holding area , risks and benefits and possible complications of the procedure and alternative were discussed with the patient, and the patient agreed to proceed with the procedure and signed the consent and vital signs monitored during the procedure and fluoroscopy was used to maximize the benefit and accuracy of the needle placement,, patient was taken to the procedure room and placed in prone position vital signs monitored in the back prepped with chlorhexidine X3 then under strict sterile technique using a right oblique fluoroscopy ,the junction of the transverse process and the superior articulating process of the right L3 , L4 , and L5 vertebra which corresponding to the fluoroscopy image of the eye of the Enrike dog on the block side for the medial branches and subsequently , after local infiltration of skin and subcu tissuies with Ropivacaine 0.5 % , one mL at each level ,then 22-gauge Quincke-type needles , 3 needle was used , each one of them placed at the junction of the base of the transverse process and the superior articular process at the appropriate level, and the needle was advanced until the periosteum contacted, needle placement confirmed with AP oblique and lateral view and after appropriate needle placement confirmed, and after negative aspiration for heme and CSF and there was no paresthesia 1-1/2 mL of Ropivacaine 0.5% mixed with 20 mg Depo-Medrol , then half mL injected at each level after negative aspiration the needle subsequently removed and the same procedure repeated for the left side at left side at L3 , L4 and L5 levels. At the end of the procedure and the needles removed and a bandage applied after the skin was cleaned the cleaning solution patient taken to recovery room in stable condition and monitors in the recovery room for 20-30 minutes and discharged home in stable condition after discharge criteria met and patient will follow up with the pain clinic in 2-4 weeks note= this patient gets good relief today will proceed with the RFA of the medial branch ,and for the RFA I recommend the use 5 inch needles
[2022-07-28 07:30] VITALS: RESP 18
--- NOTE | 2022-07-28 07:33 | FL ---
Intraoperative/procedural fluoroscopic services were provided for bilateral lumbar facet block. Total fluoroscopy time is 11 seconds with a total of 5 submitted images to PACS. Please see the operative note for further details.
[2022-07-28 07:39] VITALS: BP 144/90; PULSE 79
== END 2022-07-28 07:39 | disposition home or self-care (01) ==
LOC: ORPAIN 06:09
PROVIDERS: ATTEND Specialist
DX: M51.36 Other intervertebral disc degeneration, lumbar region (principal); M47.816 Spondylosis without myelopathy or radiculopathy, lumbar region; G89.29 Other chronic pain

== ENCOUNTER 2022-09-29 06:45 | Day surgery (SDC) | payer OTHER ==
[2022-09-27 14:19] VITALS: BMI 39.3
[~2022-09-29 06:45] MED LIST changes: +LIDOCAINE 1% (10MG/ML) FOR IV START INTRADERMA PRN
[2022-09-29 07:29] LABS: Glucose,Whole Blood 107 mg/dL (70-110)
[2022-09-29] MEDS ORDERED: fentaNYL (PF) 50 MCG/ML 2 ML AMP ONE (07:30)
[2022-09-29] MEDS ORDERED: methylPREDNISolone ACETATE 40 MG/ML 1 ML VIAL ONE (07:30)
[2022-09-29] MEDS ORDERED: ROPIVACAINE 5 MG/ML 20 ML AMPULE ONE (07:30)
[2022-09-29] MEDS ORDERED: MIDAZOLAM 2 MG/2 ML VIAL ONE (07:30)
[2022-09-29 07:33] VITALS: TEMP 97
--- NOTE | 2022-09-29 08:04 | P.PCN ---
Date of Procedure: 09/29/22 Procedure(s) Performed: PREOPERATIVE DIAGNOSIS: 1-Lumbar Spondylosis with Facet Arthropathy without myelopathy. 2- Lumber degenerative disc disease. POSTOPERATIVE DIAGNOSIS: 1- Lumbar Spondylosis with Facet Arthropathy without myelopathy. 2- Lumber degenerative disc disease. PROCEDURES : Bilateral Radiofrequency thermocoagulation, L3 , L4 , and L5 medial branch, with fluoroscopic guidance (fluoroscopy images available in the radiology department) ( to denervate the facet joint at bilateral L4-5 ,and L5-S1 levels ). ANESTHESIA: Monitored anesthesia care as per anesthesia department . EBL: Minimal PROCEDURE INDICATION: The patient with low back pain secondary to lumbar facet arthropathy who had more than 80% relief of her pain with previous diagnostic lumbar medial branch block with bupivacaine. PROCEDURE DESCRIPTION / TECHNIQUE: The patient was seen and identified in the preoperative area. Risks, benefits, complications, including but not limited to risk of infection ,bleeding , allergic reactions to the medications and no complete pain releife , and alternatives were discussed with the patient, the patient agreed to proceed with the procedure and signed the consent. IV was started. Vital signs remained stable throughout the procedure. Patient was taken to the OR and time out was completed. The patient was placed in the prone position on the procedure table. The lumber area was prepped and draped in the usual sterile fashion. . Vital signs were closely monitored during the procedure .IV sedation was used during the procedure to decrease patients anxiety. Using AP and then oblique fluoroscopy, the ``eye of the Enrike dog delia esponding to the connection between the superior and transverse articular processes of right L3, L4, and L5 were identified, marked, and localized with 1% lidocaine. Subsequently, a 18 -dh radiofrequency cannula with a 10- mm active tip was advanced guided by fluoroscopy to each of the``eyes of the Enrike dog at right L3, L4, and L5. Each site then underwent sensory testing at 50 Hz and 0 to 1 volt and motor testing at 2.5 Hz and 0 to 3 volt with local stimulation, but no radicular symptoms down the legs. Thereafter each sites underwent radiofrequency thermocoagulation at 80 degrees celsius for 90 seconds after injecting 0.5 ml of PF Ropivacaine 1ml, then after the thermocoagulation done , 1 ml of the block solution containing Depo-Medrol 20 mg and 3 ml of Ropivacaine 0.5% was injected at the right L3 , L4 , and L5 , levels after negative aspiration of CSF and blood and with no paresthesias. Cannulas were retracted while injecting lidocaine 1% until the needle is out. The same procedure was repeated at the level of Left L3, L4, and L5 levels. At the end of the procedure, the skin was cleansed and bandages were applied. COMPLICATIONS: No acute complications. DISPOSITION / PLANS: The patient was placed in a supine position and transferred to the recovery area in a stable condition for observation and was discharged from the recovery room after meeting discharge criteria. Home discharge instructions given to the patient by the staff. The patient was reexamined prior to discharge. The patient will schedule a follow up in the clinic in 2-4 weeks.
[2022-09-29] MEDS ORDERED: IV FLUID CONTINUATION 900 ML IV ONE (08:09)
[2022-09-29 08:11] VITALS: RESP 16
[2022-09-29 08:25] VITALS: BP 132/87; PULSE 88
--- NOTE | 2022-09-29 09:44 | FL ---
EXAMINATION TYPE: FL guided pain mgmt statistic DATE OF EXAM: 09/29/2022 HISTORY: Fluoroscopy time 54 SEC FLUORO, .[id number] of fluoroscopy provided. IMPRESSION: 1. Fluoroscopy time.
== END 2022-09-29 08:39 | disposition home or self-care (01) ==
LOC: ORPAIN 06:45
PROVIDERS: ATTEND Specialist
DX: M47.816 Spondylosis without myelopathy or radiculopathy, lumbar region (principal); M51.36 Other intervertebral disc degeneration, lumbar region; I10 Essential (primary) hypertension; E78.5 Hyperlipidemia, unspecified; J44.9 Chronic obstructive pulmonary disease, unspecified; E11.9 Type 2 diabetes mellitus without complications; G47.33 Obstructive sleep apnea (adult) (pediatric); F17.210 Nicotine dependence, cigarettes, uncomplicated; F41.9 Anxiety disorder, unspecified; F32.A Depression, unspecified; K21.9 Gastro-esophageal reflux disease without esophagitis; Z79.899 Other long term (current) drug therapy; Z79.01 Long term (current) use of anticoagulants
CPT/HCPCS: 64635; 64636 ×2; J2250; J1030; J3010; J2795

== ENCOUNTER → 2022-12-27 | Outpatient (CLI) | payer OTHER ==
[2022-12-27 10:53] VITALS: BP 139/93; PULSE 96; RESP 16; TEMP 98.4
--- NOTE | 2022-12-27 11:47 | P.HPOB ---
History of Present Illness H&P Date: 12/27/22 Chief Complaint: The patient is here for her routine gynecologic exam and ma mmogram. This is a 52-year-old with an LMP of 07/17/2021. The patient has occasional hot flashes but she believes these are on the decline. She has a history of a long-standing left labial cyst which measured about 2 cm since age 22, that was drained by Dr. Souza in 2020. She states this has not recurred. However, she feels a small lump within the outer aspect of the right labia and feels Pea size and firm. She is otherwise without complaints and denies any postmenopausal bleeding. Review of Systems The patient has lost 19 pounds over the last year. She denies respiratory, cardiac, or G.I. problems. Past Medical History Past Medical History: Asthma, COPD, Diabetes Mellitus, GERD/Reflux, Hyperlipidemia, Hypertension, Osteoarthritis (OA), Pneumonia, Sleep Apnea/CPAP/BIPAP Additional Past Medical History / Comment(s): Overactive bladder, chronic back pain. Hx Pneumonia 04/2021. Arthritis both knees. Uses CPAP. Past [employer]ATION [employer] history: She is treated for Trichomonas and 2014. History of Any Multi-Drug Resistant Organisms: None Reported Past Surgical History: Orthopedic Surgery, Tubal Ligation Additional Past Surgical History / Comment(s): Left knee ACL and medial meniscus repair, right knee - medial meniscus repair, right wrist fracture, left RING FINGER -cyst removed, PAIN CLINIC PROCEDURES. Past Anesthesia/Blood Transfusion Reactions: No Reported Reaction Past Psychological History: Anxiety, Depression, Panic Disorder Smoking Status: Current every day smoker (4-5 cigarettes per day.) Past Alcohol Use History: Occasional (0-3 drinks per month.) Additional Past Alcohol Use History / Comment(s): STARTED SMOKING AT AGE 17, smokes 4-5 cigarettes daily. Past Drug Use History: None Reported Additional History: She is and has been with her boyfriend since 2021. She is currently not working outside of the home. - Past Family History Mother Family Medical History: Cancer Additional Family Medical History / Comment(s): UTERINE AND BREAST CANCER. Medications and Allergies Home Medications Medication Instructions Recorded Confirmed Type Omeprazole 20 mg PO QAM 03/05/17 12/27/22 History metFORMIN HCL [metFORMIN HCL ER] 500 mg PO QAM 02/25/18 12/27/22 History Furosemide [Lasix] 20 mg PO QAM 04/15/21 12/27/22 History Atorvastatin [Lipitor] 40 mg PO QAM 06/14/21 12/27/22 History Fluticasone Propion/Salmeterol 1 inhalation PO BID 06/14/21 12/27/22 History [Advair 250-50 Diskus] Dulaglutide [Trulicity] 3 mg SQ TH 06/30/21 12/27/22 History FLUoxetine HCL [PROzac] 40 mg PO QAM 06/30/21 12/27/22 History Potassium Chloride [Klor-Con 20] 20 meq PO DAILY 06/30/21 12/27/22 History Propranolol [Inderal] 20 mg PO BID 06/30/21 12/27/22 History Phentermine HCl [Adipex-P] 37.5 mg PO QAM 10/04/21 12/27/22 History ALPRAZolam [Xanax] 0.5 mg PO BID 04/10/22 12/27/22 History traZODone HCL [Desyrel] 50 mg PO HS 04/20/22 12/27/22 History Cyclobenzaprine [Flexeril] 10 mg PO HS 30 Days #30 tab 08/24/22 12/27/22 Rx Gabapentin [Neurontin] 400 mg PO TID 30 Days #90 cap 08/24/22 12/27/22 Rx Allergies Allergy/AdvReac Type Severity Reaction Status Date / Time No Known Allergies Allergy Verified 12/27/22 10:50 Exam Vital Signs Temp Pulse Resp BP 12/27/22 10:51 98.4 F 96 16 139/93 Intake and Output 12/26/22 12/27/22 12/27/22 22:59 06:59 14:59 Other: Weight 102.512 kg Height 5 feet 3 inches, weight 226 pounds, BMI 40.0. This is a well-developed well-nourished heavyset white female who is alert and oriented times 3 in no acute distress. HEENT: Within normal limits. NECK: Supple without mass or thyromegaly. CHEST AND LUNGS: Clear to auscultation. HEART: Regular rate and rhythm. BREASTS: Are without mass or discharge. AXILLARY EXAM: Negative for adenopathy. BACK: Negative for CVA tenderness. ABDOMEN: Soft, nontender, without palpable masses. PELVIC EXAM: External genitalia reveals a right labia majora inclusion cyst measuring 8 x 9 mm and looks completely benign. This is firm and nontender. The left labia minora as a deflated cyst measuring impression a 1 x 2 cm consistent with her previously drained long time cyst. This is soft and nontender. Cervix and vagina appear normal. There is no unusual discharge. There is no evidence of prolapse. The uterus is midposition, nongravid size and nontender. There are no palpable adnexal masses or tenderness. RECTAL EXAM: Rectovaginal exam is negative for mass or tenderness and is negative for occult blood. EXTREMITIES: Nontender. IMPRESSION: 1. 52 year old menopausal female with benign-appearing small right labial inclusion cyst and deflated left labial cyst status post drainage in 2020. Both appear completely benign. 2. History of 5.2 cm uterine fibroid by 2018 ultrasound. The uterus currently feels nongravid size. 3. Her previous Pap smear on 07/27/2020 showed ASCUS with negative high-risk HPV testing. PLAN: 1. Pap smear cotest was performed. 2. Self breast awareness was discussed with the patient. We have also discussed symptoms associated with inflammatory breast cancer. 3. Screening mammogram will be done today. 4. Osteoporosis prevention was discussed. I have stressed the importance of adequate calcium, vitamin D and regular exercise. Recommended amounts of calcium and vitamin D were also discussed. 5. I recommended that she quit smoking. We have discussed many reasons why this is important. I have asked that she try to smoke no more than 5 cigarettes any day and to gradually decrease this number. 6. We have discussed how it would be important to call if she has any postmenopausal bleeding, notices changes in the labial cysts, or problems. 7. She was advised to return in one year for her annual well woman exam and as needed.
--- NOTE | 2022-12-28 09:14 | MM ---
Reason for Exam: Screening (asymptomatic). Last mammogram was performed 1 year(s) and 3 month(s) ago. Patient History: Menarche at age 14. First Full-Term at age 19. Postmenopausal. Mother had breast cancer, age 61. Risk Values: Korin 5 year model risk: 1.8%. NCI Lifetime model risk: 16.0%. Prior Study Comparison: 05/20/2019 Bilateral Screening Mammogram, [facility]. 07/27/2020 Bilateral Screening Mammogram, [facility]. 09/06/2021 Bilateral Screening Mammogram, [facility]. Tissue Density: The breast tissue is heterogeneously dense. This may lower the sensitivity of mammography. Findings: Analyzed By CAD. There is no suspicious group of microcalcifications or new suspicious mass in either breast. Overall Assessment: Benign, BI-RAD 2 Management: Screening Mammogram of both breasts in 1 year. . Patient should continue monthly self-breast exams. A clinical breast exam by your physician is recommended on an annual basis. This exam should not preclude additional follow-up of suspicious palpable abnormalities. Note on Korin scores and lifetime risk: 1. A Korin score greater than 3% is considered moderate risk. If this is the case, consider specialist referral to assess eligibility for a risk reducing agent. 2. If overall lifetime risk for the development of breast cancer is 20% or higher, the patient may qualify for future screening with alternating mammogram and breast MRI. Electronically signed and approved by: Alfredito Plunkett M.D. Radiologis
== END ==
LOC: WWCWWP 10:32
PROVIDERS: ATTEND Obstetrics & Gynecology
DX: Z12.31 Encounter for screening mammogram for malignant neoplasm of breast (principal); E11.9 Type 2 diabetes mellitus without complications; K21.9 Gastro-esophageal reflux disease without esophagitis; E78.5 Hyperlipidemia, unspecified; M19.90 Unspecified osteoarthritis, unspecified site; I10 Essential (primary) hypertension; J44.9 Chronic obstructive pulmonary disease, unspecified; F17.210 Nicotine dependence, cigarettes, uncomplicated; Z79.84 Long term (current) use of oral hypoglycemic drugs; Z79.51 Long term (current) use of inhaled steroids; Z98.890 Other specified postprocedural states
CPT/HCPCS: 77067

== ENCOUNTER → 2023-02-28 | Outpatient (CLI) | payer OTHER ==
[2023-02-28 13:28] VITALS: BP 141/102; PULSE 91; RESP 16; TEMP 98.7
--- NOTE | 2023-02-28 15:15 | P.PAINPG ---
PQRS Measure Charge Sheet Comment: A 52 yr old female with a history of severe and chronic LBP secondary to lumbar DDD and spondylosis with facet arthropathy without myelopathy presents today for medication refills and evaluation s/p BL RFA L3-L4. Pt states she experienced 75% pain relief x 1 day s/p procedure. Pain level is provoked at 6/10 in intensity, constant, localized in the lumbar spine, burning in character with radiation towards BLEs towards the toes. Pain is provoked by standing/ walking for periods of 10 min or more. Pain is alleviated with medications, injections, PT 6 weeks in 2019, home exercise as tolerated, repositioning and rest. Oswestry axial pain score of 35. Interventional pain procedures completed include BL RFA L3-L5 (Sep 2022), BL MBB L3-L4 x1 Patient is currently on Neurontin, Flexeril Patient denies any side effects of the medication(s), denies excessive drowsiness or sleepiness, denies suicidal ideation and reports that the current pain medication is helping to control the pain and improve activities of daily living. Patient denies any motor or sensory deficits. Patient denies any fever or night sweats, denies any change in the bowel movements or urination. Physical Examination: -Constitutional: Cooperative. Not in acute distress . - Neurologic: Cranial nerve II to XII intact. No focal neurological deficits. - Psychatric: Alert & oriented x 3. Matching mood & appropriate affect. Judgment and insight intact. - Musculoskeletal: Cervical spine: Muscle bulk/ tone/ strength in the bilateral upper extremities normal Vertebral body tenderness to palpation over Spurling test positive Distraction test positive Facet loading test positive Thoracic spine Muscle bulk / tone/ strength in the bilateral paraspinal muscles normal Vertebral body tender to palpation over Facet loading test positive Lumbar spine: Motor bulk/ tone/ strength lower extremities , thigh and legs : 5/5 Deep tendon reflexes : Normal Knee Jerk. Normal Ankle Jerk . Vertebral body tenderness to palpation over Lumbar Facet Loading Test positive TTP over L4-L5, L5-S1 facets Straight Leg Raise: positive at 30 degrees right side/ left side Gaenslen's Test positive Sacral spine : Severe tenderness over the Sacroiliac joint: right side / left side Range of motion: Flexion of the lumbar spine <60 degrees Range of motion: Extension of the lumbar spine <20 degrees Gaenslen's Test positive Leti test: positive right side / left side Thigh Thrust Test Sacral Thrust Test Assessment and plan: Chronic LBP secondary to lumbar DDD, spondylosis with facet arthropathy without myelopathy Recommendation of PT x 6 wks re: M51.36. Chronic and current use of high-risk medication (Opioids). The patient was counseled about risk of opioid use, psychological risk associated with opioids and was orally counseled to not overuse , divert or sell medications. Pt is to store medication in a safe location. The patient is counseled against driving while using narcotic medications and also not to use alcohol or any illicit recreational drugs. Patient verbalized understanding that the lack of compliance will result in failure to renew narcotic prescription(s) as well as possible discharge from the clinic Diagnoses, prognosis and treatment options including but not limited to physical therapy, surgical interventions, interventional therapies and medication management including narcotics and adjuvant medication were discussed. All patient questions answered MAPS reviewed and it was appropriate. UDS collected today 02/28/23. Prescription refill for Neurontin, Flexeril with 1 refill. I have spent less than 30 minutes on patient care today. Dr Milan was available by phone for the evaluation of this patient. The time was used to review the medical records including relevant urine studies and Prescription history (MAPs), review of the available imaging, evaluation and examination of the patient, coordination of care with the medical staff and if applicable referring physicians, as well as creation of the medical record - Pain Location Bilateral Lower Back Non-Pharmacological Interventions: Heat, Ice, Inactivity, Physical Therapy Pharmacological Interventions: PRN Medication, Topical Medication PQRS Narrative: Smoking Status Current every day smoker Narcotic Agreement Date Signed 03/07/21 Hx Alcohol Use (MH) Yes: OCCASIONAL Home Medications: Ambulatory Orders Omeprazole 20 mg PO QAM 03/05/17 metFORMIN HCL [metFORMIN HCL ER] 500 mg PO QAM 02/25/18 Furosemide [Lasix] 20 mg PO QAM 04/15/21 Atorvastatin [Lipitor] 40 mg PO QAM 06/14/21 Fluticasone Propion/Salmeterol [Advair 250-50 Diskus] 1 inhalation PO BID 06/14/21 Dulaglutide [Trulicity] 3 mg SQ TH 06/30/21 FLUoxetine HCL [PROzac] 40 mg PO QAM 06/30/21 Potassium Chloride [Klor-Con 20] 20 meq PO DAILY 06/30/21 Propranolol [Inderal] 20 mg PO BID 06/30/21 Phentermine HCl [Adipex-P] 37.5 mg PO QAM 10/04/21 ALPRAZolam [Xanax] 0.5 mg PO BID 04/10/22 traZODone HCL [Desyrel] 50 mg PO HS 04/20/22 Cyclobenzaprine [Flexeril] 10 mg PO HS 30 Days #30 tab 02/28/23 Gabapentin [Neurontin] 400 mg PO TID 30 Days #90 cap 02/28/23 Controlled Substance Measures - Controlled Substance Measures Is patient prescribed a controlled substance at discharge?: Yes When asked, does pt state using other controlled substances?: No If prescribed controlled substance>3 days was MAPS reviewed?: Yes If Rx opioid, was Start Talking consent form obtained?: Yes Was information provided regarding opioid addiction?: Yes
== END ==
LOC: PNWHC3 10:40
PROVIDERS: ATTEND Specialist
DX: M51.36 Other intervertebral disc degeneration, lumbar region (principal); M47.817 Spondylosis without myelopathy or radiculopathy, lumbosacral region; G89.29 Other chronic pain; F17.200 Nicotine dependence, unspecified, uncomplicated; Z51.81 Encounter for therapeutic drug level monitoring; Z79.1 Long term (current) use of non-steroidal anti-inflammatories (NSAID); Z79.891 Long term (current) use of opiate analgesic; Z79.85 Long-term (current) use of injectable non-insulin antidiabetic drugs
CPT/HCPCS: 80307; G0463; 99212

== ENCOUNTER → 2024-02-05 | Outpatient (CLI) | payer OTHER ==
[2024-02-05 14:25] VITALS: BP 139/84; PULSE 91; RESP 16; TEMP 97.8
--- NOTE | 2024-02-05 15:05 | P.HPOB ---
History of Present Illness H&P Date: 02/05/24 Chief Complaint: The patient is here for her routine gynecologic exam and ma mmogram. This is a 53-year-old G4, P4 with an LMP of 2021. The patient has a history of labial cysts. The left labial cyst which she has had for many years was drained by Dr. Souza in 2020. Remains smaller and softer than it was prior to its drainage. Patient had a small right labial cyst last year which she states spontaneously drained and has gone away. She is otherwise without gynecologic complaints and denies any postmenopausal bleeding. Review of Systems The patient has gained 11 pounds over the last year. She denies respiratory, cardiac, or G.I. problems. Past Medical History Past Medical History: Asthma, COPD, Diabetes Mellitus, GERD/Reflux, Hyperlipidemia, Hypertension, Osteoarthritis (OA), Pneumonia, Sleep Apnea/CPAP/BIPAP Additional Past Medical History / Comment(s): Overactive bladder, chronic back pain. Hx Pneumonia 04/2021. Arthritis both knees. Uses CPAP. 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 History of Any Multi-Drug Resistant Organisms: None Reported Past Surgical History: Orthopedic Surgery, Tubal Ligation Additional Past Surgical History / Comment(s): Left knee ACL and medial meniscus repair, right knee - medial meniscus repair, right wrist fracture, left RING FIN CORDELIA -cyst removed, PAIN CLINIC PROCEDURES. Past Anesthesia/Blood Transfusion Reactions: No Reported Reaction Past Psychological History: Anxiety, Depression, Panic Disorder Smoking Status: Current every day smoker (About 5 cigarettes/day.) Past Alcohol Use History: Occasional (0-3 drinks per month.) Additional Past Alcohol Use History / Comment(s): STARTED SMOKING AT AGE 17, smokes 4-5 cigarettes daily. Past Drug Use History: None Reported Additional History: She has been with her boyfriend since 2021. - Past Family History Mother Family Medical History: Cancer Additional Family Medical History / Comment(s): UTERINE AND BREAST CANCER. Medications and Allergies Home Medications Medication Instructions Recorded Confirmed Type Omeprazole 20 mg PO QAM 03/05/17 02/05/24 History metFORMIN HCL [metFORMIN HCL ER] 500 mg PO QAM 02/25/18 02/05/24 History Furosemide [Lasix] 20 mg PO QAM 04/15/21 02/05/24 History Fluticasone Propion/Salmeterol 1 inhalation PO BID 06/14/21 02/05/24 History [Advair 250-50 Diskus] FLUoxetine HCL [PROzac] 40 mg PO QAM 06/30/21 02/05/24 History Potassium Chloride [Klor-Con 20] 20 meq PO DAILY 06/30/21 02/05/24 History ALPRAZolam [Xanax] 0.5 mg PO BID 04/10/22 02/05/24 History traZODone HCL [Desyrel] 50 mg PO HS 04/20/22 02/05/24 History Allergies Allergy/AdvReac Type Severity Reaction Status Date / Time No Known Allergies Allergy Verified 02/28/23 11:05 Exam Vital Signs Temp Pulse Resp BP Pulse Ox 02/05/24 14:22 97.8 F 91 16 139/84 96 Intake and Output 02/04/24 02/05/24 02/05/24 22:59 06:59 14:59 Other: Weight 107.501 kg Height 5 feet 3 inches, weight 237 pounds, BMI 42.0. This is a well-developed well-nourished heavyset white female who is alert and oriented times 3 in no acute distress. HEENT: Within normal limits. NECK: Supple without mass or thyromegaly. CHEST AND LUNGS: Clear to auscultation. HEART: Regular rate and rhythm. BREASTS: Are without mass or discharge. AXILLARY EXAM: Negative for adenopathy. BACK: Negative for CVA tenderness. ABDOMEN: Soft, obese, nontender, without palpable masses. PELVIC EXAM: There is a left labia minora cyst which is stable from her previous exam and measures 1.7 x 1.0 cm. This is very soft and appears deflated compared to the cyst prior to drainage in 2020. The right labia inclusion cyst is no longer seen. She states it spontaneously drained and disappeared. Cervix and vagina appear normal minimal atrophy. There is no unusual discharge. There is no evidence of prolapse. The uterus is midposition, nongravid size and nontender. There are no palpable adnexal masses or tenderness. RECTAL EXAM: Rectovaginal exam is negative for mass or tenderness and is negative for occult blood. EXTREMITIES: Nontender. IMPRESSION: 1. 53-year-old menopausal female with stable left labial cyst measuring 1.7 x 1.0 cm. The right labial inclusion cyst has resolved. 2. History of a 5.2 cm uterine fibroid by ultrasound in 2018. This is not pa lpable at this time. PLAN: 1. Pap smear was deferred since she had a negative Pap smear cotest on 12/26/2022 2. Self breast awareness was discussed with the patient. We have also discussed symptoms associated with inflammatory breast cancer. 3. Screening mammogram will be done today 4. Osteoporosis prevention was discussed. I have stressed the importance of adequate calcium, vitamin D and regular exercise. Recommended amounts of calcium and vitamin D were also discussed. 5. Colorectal cancer screening was discussed and she states she has a Cologuard test at home which she plans to do in the near future. This will be done through her PCP. 6. She was advised to return in one year for her annual well woman exam. She was instructed to call if she is having problems with the labial cyst.
--- NOTE | 2024-02-06 13:03 | MM ---
Reason for Exam: Screening (asymptomatic). Last mammogram was performed 1 year(s) and 1 month(s) ago. Patient History: Menarche at age 14. First Full-Term at age 19. Postmenopausal. Mother had breast cancer, age 61. Risk Values: Korin 5 year model risk: 1.9%. NCI Lifetime model risk: 15.8%. Prior Study Comparison: 07/27/2020 Bilateral Screening Mammogram, [facility]. 09/06/2021 Bilateral Screening Mammogram, [facility]. 12/27/2022 Bilateral MG screening mammo w CAD, [facility]. Tissue Density: There are scattered areas of fibroglandular density. Findings: Analyzed By CAD. Right breast: There is no suspicious group of microcalcifications or new suspicious mass. Left breast: There is no suspicious group of microcalcifications or new suspicious mass. Overall Assessment: Negative, BI-RAD 1 Management: Screening Mammogram of both breasts in [address] [facility] will attempt to contact patient to return for supplemental views and ultrasound if indicated. Patient should continue monthly self-breast exams. A clinical breast exam by your physician is recommended on an annual basis. This exam should not preclude additional follow-up of suspicious palpable abnormalities. Note on Korin scores and lifetime risk: 1. A Korin score greater than 3% is considered moderate risk. If this is the case, consider specialist referral to assess eligibility for a risk reducing agent. 2. If overall lifetime risk for the development of breast cancer is 20% or higher, the patient may qualify for future screening with alternating mammogram and breast MRI. Electronically signed and approved by: Wil Hernandez DO
== END ==
LOC: WWCWWP 13:47
PROVIDERS: ATTEND Obstetrics & Gynecology
DX: Z12.31 Encounter for screening mammogram for malignant neoplasm of breast (principal); N90.7 Vulvar cyst; F17.210 Nicotine dependence, cigarettes, uncomplicated; Z78.0 Asymptomatic menopausal state; Z86.018 Personal history of other benign neoplasm; Z80.3 Family history of malignant neoplasm of breast
CPT/HCPCS: 77067